=== PATIENT | female | born 1950 | race Caucasian/White ===

== ENCOUNTER 2019-11-09 11:44 | Outpatient (CLI) | payer MEDICARE, MEDICAID, SELFPAY ==
[2019-11-09 12:21] LABS: Basophils % 0.4 %; Eosinophils # 0.5 10^3/uL (0.0-0.8); Hematocrit 34.5 % (37.0-47.0); Hemoglobin 11.2 g/dL (11.5-15.3); Lymphocytes # 3.1 10^3/uL (0.8-4.8); Lymphocytes % 27.6 %; Mean Corpuscular HGB Conc 32.5 g/dL (30.0-36.0); Mean Corpuscular Volume 86.3 fL (81-99); Mean Platelet Volume 9.9 fL (7.4-10.4); Monocytes % 8.6 %; Neutrophils # 6.7 10^3/uL (1.8-7.7); Neutrophils % 59.1 %; Nucleated Red Blood Cells % 0 %; Platelet Count 198 10^3/cmm (130-400); Red Cell Distribution Width 12.8 % (12.1-15.1); White Blood Count 11.4 10^3/uL (4.0-10.0)
[2019-11-09 12:47] LABS: 25 Hydroxy Vitamin D 45 ng/mL (30-100)
[2019-11-09 13:02] LABS: Albumin Level 4.2 g/dL (3.5-5.2); Anion Gap 18.9 (5-19); Blood Urea Nitrogen 25 mg/dL (8-23); Calcium 8.5 mg/dL (8.5-10.5); Carbon Dioxide 23 mmol/L (22-29); Chloride 100 mmol/L (98-107); Glucose 95 mg/dL (74-106); Phosphorus 3.8 mg/dL (2.5-4.5); Potassium 3.9 mmol/L (3.5-5.1); Sodium 138 mmol/L (136-145)
[2019-11-09 13:13] LABS: Calcium 8.4 mg/dL (8.5-10.5); Parathyroid Hormone 45.3 pg/mL (15-65)
[2019-11-09 13:35] LABS: Urine Creatinine 110 mg/dL (28-217)
[2019-11-09 13:43] LABS: UPRO/UCREAT Ratio 0.35 mg/mg CR; Urine Protein Random 39 mg/dL
[2019-11-10 12:12] LABS: Cyclosporine A Trough Level 377 mcg/L
== END 2019-11-09 11:45 | disposition home or self-care (01) ==
LOC: LAB 11:48
PROVIDERS: Family Provider Nurse Practitioner Family; Visit Provider Internal Medicine Nephrology
DX: I12.9 Hypertensive chronic kidney disease with stage 1 through stage 4 chronic kidney disease, or unspecified chronic kidney disease (principal); N18.4 Chronic kidney disease, stage 4 (severe); Z94.0 Kidney transplant status; E87.6 Hypokalemia
CPT/HCPCS: 36415; 80069; 80158; 82306; 82310; 82570; 83735; 83970; 84156; 85025

== ENCOUNTER 2019-11-30 12:02 | Outpatient (CLI) | payer MEDICARE, MEDICAID, SELFPAY ==
[2019-11-30 13:17] LABS: Basophils % 0.4 %; Eosinophils # 0.4 10^3/uL (0.0-0.8); Eosinophils % 4.5 %; Hematocrit 36.6 % (37.0-47.0); Hemoglobin 11.8 g/dL (11.5-15.3); Lymphocytes # 1.4 10^3/uL (0.8-4.8); Lymphocytes % 15.9 %; Mean Corpuscular HGB Conc 32.2 g/dL (30.0-36.0); Mean Corpuscular Hemoglobin 27.8 pg (28.0-34.0); Mean Corpuscular Volume 86.3 fL (81-99); Monocytes # 0.3 10^3/uL (0.2-0.9); Neutrophils # 6.8 10^3/uL (1.8-7.7); Neutrophils % 75.9 %; Nucleated Red Blood Cells % 0 %; Platelet Count 200 10^3/cmm (130-400); Red Blood Count 4.24 10^6/uL (4.1-5.3); Red Cell Distribution Width 13.1 % (12.1-15.1); White Blood Count 8.9 10^3/uL (4.0-10.0)
[2019-11-30 13:19] LABS: Add Urine Microscopic? YES; Bilirubin Urine Neg (NEGATIVE); Blood Urine 2+ (Negative); Glucose Urine UA Norm (Normal); Ketones Urine Negative (Negative); Leukocyte Esterase Urine Negative (Negative); Nitrate Urine Negative (Negative); Protein Urine 3+ (Negative); Urine Appearance Clear (CLEAR); Urine Color Yellow (Yellow); Urobilinogen Urine Norm (Negative); pH Urine 5 (5-7)
[2019-11-30 13:19] LABS: Uric Acid 8.3 mg/dL (2.4-5.7)
[2019-11-30 13:20] LABS: Alanine Aminotransferase 16 U/L (0-33); Albumin Level 4.6 g/dL (3.5-5.2); Alkaline Phosphatase 77 IU/L (35-105); Anion Gap 19.4 (5-19); Aspartate Amino Transferase 25 U/L (0-32); Blood Urea Nitrogen 20 mg/dL (8-23); Carbon Dioxide 24 mmol/L (22-29); Chloride 99 mmol/L (98-107); Globulin 3.3 g/dL (1.3-4.6); Glomerular Filtration Rate 27.8 mL/min (90-130); Glucose 96 mg/dL (65-115); Potassium 4.4 mmol/L (3.5-5.1); Sodium 138 mmol/L (136-145); Total Bilirubin 1.7 mg/dL (0.15-1.2); Total Protein 7.9 g/dL (6.6-8.7)
[2019-11-30 13:29] LABS: Add Urine Culture? No; Bacteria Urine TRACE; RBC Urine 0-4 /hpf (0-2); WBC Urine 0-4 /hpf (0-5)
[2019-11-30 13:34] LABS: Urine Creatinine 141 mg/dL (28-217)
[2019-11-30 13:47] LABS: UPRO/UCREAT Ratio 1.47 mg/mg CR; Urine Protein Random 207 mg/dL
[2019-11-30 13:58] LABS: Calcium 9.2 mg/dL (8.5-10.5); Parathyroid Hormone 67.3 pg/mL (15-65)
[2019-12-01 12:13] LABS: Cyclosporine A Trough Level 260 mcg/L
== END 2019-11-30 12:03 | disposition home or self-care (01) ==
LOC: LAB 12:08
PROVIDERS: Family Provider Nurse Practitioner Family; PCP Nurse Practitioner Family; Visit Provider Internal Medicine Nephrology
DX: Z94.0 Kidney transplant status (principal); Z79.899 Other long term (current) drug therapy; E83.49 Other disorders of magnesium metabolism; I12.9 Hypertensive chronic kidney disease with stage 1 through stage 4 chronic kidney disease, or unspecified chronic kidney disease; N18.4 Chronic kidney disease, stage 4 (severe); E87.5 Hyperkalemia; N25.81 Secondary hyperparathyroidism of renal origin
CPT/HCPCS: 36415; 80053; 80158; 81001; 82310; 82570; 83735; 83970; 84156; 84550; 85025

== ENCOUNTER 2020-03-21 12:17 | Outpatient (CLI) | payer MEDICARE, MEDICAID, SELFPAY ==
[2020-03-21 13:15] LABS: Basophils % 0.5 %; Eosinophils # 0.5 10^3/uL (0.0-0.8); Eosinophils % 6.3 %; Hematocrit 35.2 % (37.0-47.0); Lymphocytes # 1.6 10^3/uL (0.8-4.8); Lymphocytes % 19.1 %; Mean Corpuscular HGB Conc 31.3 g/dL (30.0-36.0); Mean Corpuscular Hemoglobin 28.5 pg (28.0-34.0); Mean Corpuscular Volume 91.2 fL (81-99); Mean Platelet Volume 9.7 fL (7.4-10.4); Monocytes # 0.4 10^3/uL (0.2-0.9); Monocytes % 4.6 %; Neutrophils # 5.9 10^3/uL (1.8-7.7); Neutrophils % 69.3 %; Nucleated Red Blood Cells % 0 %; Platelet Count 175 10^3/cmm (130-400); Red Blood Count 3.86 10^6/uL (4.1-5.3); Red Cell Distribution Width 13.4 % (12.1-15.1); White Blood Count 8.5 10^3/uL (4.0-10.0)
[2020-03-21 13:23] LABS: Alanine Aminotransferase 14 U/L (0-33); Albumin Level 4.1 g/dL (3.5-5.2); Alkaline Phosphatase 61 IU/L (35-105); Aspartate Amino Transferase 19 U/L (0-32); Blood Urea Nitrogen 20 mg/dL (8-23); Calcium 7.9 mg/dL (8.5-10.5); Carbon Dioxide 23 mmol/L (22-29); Chloride 105 mmol/L (98-107); Globulin 2.3 g/dL (1.3-4.6); Glomerular Filtration Rate 22.1 mL/min (90-130); Glucose 85 mg/dL (65-115); Magnesium 2.2 mg/dL (1.7-2.3); Osmolality Calculated 284 mOsm/kg (285-295); Sodium 139 mmol/L (136-145); Total Bilirubin 1.5 mg/dL (0.15-1.2); Total Protein 6.4 g/dL (6.6-8.7); Uric Acid 7.3 mg/dL (2.4-5.7)
[2020-03-21 13:28] LABS: Urine Appearance Clear (CLEAR); Urine Color Yellow (Yellow)
[2020-03-21 13:29] LABS: Add Urine Microscopic? YES; Bilirubin Urine Neg (NEGATIVE); Blood Urine 2+ (Negative); Glucose Urine UA Norm (Normal); Ketones Urine Negative (Negative); Leukocyte Esterase Urine Negative (Negative); Nitrate Urine Negative (Negative); Protein Urine Trace (Negative); Urobilinogen Urine Norm (Negative)
[2020-03-21 13:32] LABS: Add Urine Culture? No; Bacteria Urine 2+; RBC Urine 0-4 /hpf (0-2); Squamous Epithelial Cell Urine 15-25 (0-5)
[2020-03-21 13:45] LABS: Urine Creatinine 142 mg/dL (28-217)
[2020-03-21 13:49] LABS: UPRO/UCREAT Ratio 0.26 mg/mg CR; Urine Protein Random 37 mg/dL
[2020-03-21 14:53] LABS: Calcium 7.9 mg/dL (8.5-10.5); Parathyroid Hormone 64.5 pg/mL (15-65)
[2020-03-22 12:36] LABS: Cyclosporine A Trough Level 337 mcg/L
== END 2020-03-21 12:18 | disposition home or self-care (01) ==
LOC: LAB 12:22
PROVIDERS: PCP Nurse Practitioner Family; Visit Provider Nurse Practitioner Family
DX: Z94.0 Kidney transplant status (principal); Z79.899 Other long term (current) drug therapy; E83.49 Other disorders of magnesium metabolism; N25.81 Secondary hyperparathyroidism of renal origin
CPT/HCPCS: 36415; 80053; 80158; 81001; 82310; 82570; 83735; 83970; 84156; 84550; 85025

== ENCOUNTER 2020-06-22 11:41 | Outpatient (CLI) | payer MEDICARE, MEDICAID, SELFPAY ==
[2020-06-22 12:10] LABS: Add Urine Microscopic? NO
[2020-06-22 12:14] LABS: Basophils % 0.4 %; Eosinophils # 0.4 10^3/uL (0.0-0.8); Hematocrit 33.4 % (37.0-47.0); Hemoglobin 10.8 g/dL (11.5-15.3); Lymphocytes # 3.4 10^3/uL (0.8-4.8); Lymphocytes % 36.9 %; Mean Corpuscular HGB Conc 32.3 g/dL (30.0-36.0); Mean Corpuscular Hemoglobin 29.1 pg (28.0-34.0); Mean Platelet Volume 9.6 fL (7.4-10.4); Monocytes % 10.8 %; Neutrophils # 4.36 10^3/uL (1.8-7.7); Neutrophils % 47.7 %; Nucleated Red Blood Cells % 0 %; Platelet Count 184 10^3/cmm (130-400); Red Blood Count 3.71 10^6/uL (4.1-5.3); Red Cell Distribution Width 13.5 % (12.1-15.1); White Blood Count 9.2 10^3/uL (4.0-10.0)
[2020-06-22 12:39] LABS: Bilirubin Urine Neg (Negative); Blood Urine Neg (Negative); Glucose Urine UA Norm (Normal); Ketones Urine Negative (Negative); Leukocyte Esterase Urine Negative (Negative); Nitrate Urine Negative (Negative); Protein Urine Trace (Negative); Specific Gravity, Urine 1.015 (1.005-1.030); Urine Appearance Clear (CLEAR); Urine Color Yellow (Yellow); Urobilinogen Urine Neg (Negative); pH Urine 5 (5-7)
[2020-06-22 12:40] LABS: Alanine Aminotransferase 14 U/L (0-33); Albumin Level 3.9 g/dL (3.5-5.2); Alkaline Phosphatase 55 IU/L (35-105); Anion Gap 14.7 (5-19); Aspartate Amino Transferase 18 U/L (0-32); Blood Urea Nitrogen 17 mg/dL (8-23); Calcium 7.7 mg/dL (8.5-10.5); Carbon Dioxide 24 mmol/L (22-29); Chloride 105 mmol/L (98-107); Globulin 2.7 g/dL (1.3-4.6); Glucose 91 mg/dL (65-115); Magnesium 1.7 mg/dL (1.7-2.3); Osmolality Calculated 286 mOsm/kg (285-295); Potassium 3.7 mmol/L (3.5-5.1); Sodium 140 mmol/L (136-145); Total Bilirubin 1.4 mg/dL (0.15-1.2); Total Protein 6.6 g/dL (6.6-8.7); Uric Acid 7.8 mg/dL (2.4-5.7)
[2020-06-22 13:03] LABS: Calcium 8.1 mg/dL (8.5-10.5); Parathyroid Hormone 63.7 pg/mL (15-65)
[2020-06-22 13:41] LABS: Urine Creatinine 86 mg/dL (28-217)
[2020-06-22 13:47] LABS: UPRO/UCREAT Ratio 0.53 mg/mg CR; Urine Protein Random 46 mg/dL
[2020-06-23 15:58] LABS: Cyclosporine A Trough Level 389 mcg/L
== END 2020-06-22 11:42 | disposition home or self-care (01) ==
LOC: LAB 11:43
PROVIDERS: PCP Nurse Practitioner Family; Visit Provider Internal Medicine Nephrology
DX: Z94.0 Kidney transplant status (principal)
CPT/HCPCS: 36415; 80053; 80158; 81003; 82310; 82570; 83735; 83970; 84156; 84550; 85025

== ENCOUNTER 2020-09-12 12:03 | Outpatient (CLI) | payer MEDICARE, MEDICAID, SELFPAY ==
[2020-09-12 12:56] LABS: Basophils # 0.1 10^3/uL (0.0-0.1); Basophils % 0.5 %; Eosinophils # 0.4 10^3/uL (0.0-0.8); Eosinophils % 4.2 %; Hematocrit 34.1 % (37.0-47.0); Hemoglobin 10.8 g/dL (11.5-15.3); Lymphocytes # 3.4 10^3/uL (0.8-4.8); Lymphocytes % 34.1 %; Mean Corpuscular HGB Conc 31.7 g/dL (30.0-36.0); Mean Corpuscular Hemoglobin 28.7 pg (28.0-34.0); Mean Corpuscular Volume 90.7 fL (81-99); Mean Platelet Volume 9.9 fL (7.4-10.4); Monocytes # 1.1 10^3/uL (0.2-0.9); Monocytes % 10.4 %; Neutrophils % 50.6 %; Nucleated Red Blood Cells % 0 %; Platelet Count 182 10^3/cmm (130-400); Red Blood Count 3.76 10^6/uL (4.1-5.3); White Blood Count 10.1 10^3/uL (4.0-10.0)
[2020-09-12 13:09] LABS: Add Urine Microscopic? YES; Bilirubin Urine Neg (Negative); Blood Urine Trace (Negative); Glucose Urine UA Norm (Normal); Ketones Urine Negative (Negative); Leukocyte Esterase Urine Negative (Negative); Nitrate Urine Negative (Negative); Protein Urine 1+ (Negative); Specific Gravity, Urine 1.015 (1.005-1.030); Urine Appearance Clear (CLEAR); Urine Color Yellow (Yellow); Urobilinogen Urine Norm (Negative); pH Urine 5 (5-7)
[2020-09-12 13:10] LABS: Add Urine Culture? No; Bacteria Urine 1+ /hpf; Mucus Urine TRACE /hpf; RBC Urine 0-4 /hpf (0-2); WBC Urine 0-4 /hpf (0-5)
[2020-09-12 13:18] LABS: Alanine Aminotransferase 16 U/L (0-33); Albumin Level 4.1 g/dL (3.5-5.2); Alkaline Phosphatase 59 IU/L (35-105); Anion Gap 17.9 (5-19); Aspartate Amino Transferase 16 U/L (0-32); Blood Urea Nitrogen 21 mg/dL (8-23); Calcium 8.1 mg/dL (8.5-10.5); Carbon Dioxide 25 mmol/L (22-29); Chloride 102 mmol/L (98-107); Globulin 2.6 g/dL (1.3-4.6); Glucose 87 mg/dL (65-115); Osmolality Calculated 294 mOsm/kg (285-295); Potassium 3.9 mmol/L (3.5-5.1); Sodium 141 mmol/L (136-145); Total Bilirubin 1.2 mg/dL (0.15-1.2); Total Protein 6.7 g/dL (6.6-8.7)
[2020-09-12 13:31] LABS: Urine Creatinine 94 mg/dL (28-217)
[2020-09-12 13:31] LABS: Calcium 7.9 mg/dL (8.5-10.5); Parathyroid Hormone 66.9 pg/mL (15-65)
[2020-09-12 13:33] LABS: UPRO/UCREAT Ratio 0.66 mg/mg CR; Urine Protein Random 62 mg/dL
[2020-09-13 12:13] LABS: Cyclosporine A Trough Level 427 mcg/L
== END 2020-09-12 12:04 | disposition home or self-care (01) ==
LOC: LAB 12:10
PROVIDERS: PCP Nurse Practitioner Family; Visit Provider Internal Medicine Nephrology
DX: Z94.0 Kidney transplant status (principal); Z79.899 Other long term (current) drug therapy; E83.49 Other disorders of magnesium metabolism; N18.4 Chronic kidney disease, stage 4 (severe); E87.6 Hypokalemia
CPT/HCPCS: 36415; 80053; 80158; 81001; 82310; 82570; 83735; 83970; 84156; 84550; 85025

== ENCOUNTER 2020-11-14 11:30 | Outpatient (CLI) | payer MEDICARE, MEDICAID, SELFPAY ==
[2020-11-14 12:16] LABS: Basophils % 0.4 %; Eosinophils # 0.3 10^3/uL (0.0-0.8); Eosinophils % 2.7 %; Hemoglobin 11.5 g/dL (11.5-15.3); Lymphocytes # 1.7 10^3/uL (0.8-4.8); Lymphocytes % 16.2 %; Mean Corpuscular HGB Conc 31.9 g/dL (30.0-36.0); Mean Corpuscular Hemoglobin 28.8 pg (28.0-34.0); Mean Corpuscular Volume 90.2 fL (81-99); Mean Platelet Volume 9.6 fL (7.4-10.4); Monocytes # 0.6 10^3/uL (0.2-0.9); Monocytes % 5.6 %; Neutrophils # 7.67 10^3/uL (1.8-7.7); Neutrophils % 74.7 %; Nucleated Red Blood Cells % 0 %; Platelet Count 207 10^3/cmm (130-400); Red Blood Count 3.99 10^6/uL (4.1-5.3); Red Cell Distribution Width 12.8 % (12.1-15.1); White Blood Count 10.3 10^3/uL (4.0-10.0)
[2020-11-14 12:54] LABS: Add Urine Microscopic? YES; Bilirubin Urine Neg (Negative); Blood Urine Neg (Negative); Glucose Urine UA Norm (Normal); Ketones Urine Negative (Negative); Leukocyte Esterase Urine Negative (Negative); Nitrate Urine Negative (Negative); Protein Urine 1+ (Negative); Specific Gravity, Urine 1.015 (1.005-1.030); Urine Appearance Clear (CLEAR); Urine Color Yellow (Yellow); Urobilinogen Urine Norm (Negative); pH Urine 5 (5-7)
[2020-11-14 12:56] LABS: Add Urine Culture? No; Bacteria Urine 1+ /hpf; Squamous Epithelial Cell Urine 15-25 /hpf (0-5); WBC Urine 0-4 /hpf (0-5)
[2020-11-14 13:09] LABS: Alanine Aminotransferase 15 U/L (0-33); Albumin Level 4.1 g/dL (3.5-5.2); Alkaline Phosphatase 66 IU/L (35-105); Anion Gap 15.5 (5-19); Aspartate Amino Transferase 19 U/L (0-32); Blood Urea Nitrogen 17 mg/dL (8-23); Calcium 8.3 mg/dL (8.5-10.5); Carbon Dioxide 26 mmol/L (22-29); Chloride 101 mmol/L (98-107); Globulin 2.9 g/dL (1.3-4.6); Glucose 88 mg/dL (65-115); Magnesium 2.1 mg/dL (1.7-2.3); Osmolality Calculated 287 mOsm/kg (285-295); Potassium 4.5 mmol/L (3.5-5.1); Sodium 138 mmol/L (136-145); Total Bilirubin 1.3 mg/dL (0.15-1.2); Uric Acid 7.5 mg/dL (2.4-5.7)
[2020-11-14 13:11] LABS: Urine Creatinine 110 mg/dL (28-217)
[2020-11-14 13:14] LABS: Urine Protein Random 65 mg/dL
[2020-11-14 13:26] LABS: Calcium 8.2 mg/dL (8.5-10.5); Parathyroid Hormone 57.7 pg/mL (15-65)
[2020-11-16 14:04] LABS: Cyclosporine A Trough Level 295 mcg/L
== END 2020-11-14 11:31 | disposition home or self-care (01) ==
PROVIDERS: PCP Nurse Practitioner Family; Visit Provider Internal Medicine Nephrology
DX: Z94.0 Kidney transplant status (principal); Z79.899 Other long term (current) drug therapy; E83.49 Other disorders of magnesium metabolism; I12.9 Hypertensive chronic kidney disease with stage 1 through stage 4 chronic kidney disease, or unspecified chronic kidney disease; N18.4 Chronic kidney disease, stage 4 (severe); E87.6 Hypokalemia; N25.81 Secondary hyperparathyroidism of renal origin
CPT/HCPCS: 36415; 80053; 80158; 81001; 82310; 82570; 83735; 83970; 84156; 84550; 85025

== ENCOUNTER 2021-01-02 11:56 | Outpatient (CLI) | payer MEDICARE, MEDICAID, SELFPAY ==
[2021-01-02 13:25] LABS: Calcium 8.4 mg/dL (8.5-10.5); Parathyroid Hormone 55.8 pg/mL (15-65)
[2021-01-02 13:28] LABS: Creatinine Urine, Random 159 mg/dL (28-217)
[2021-01-02 13:39] LABS: 25 Hydroxy Vitamin D 45 ng/mL (30-100); Alanine Aminotransferase 9 U/L (0-33); Alkaline Phosphatase 57 IU/L (35-105); Anion Gap 17.6 (5-19); Aspartate Amino Transferase 14 U/L (0-32); Blood Urea Nitrogen 28 mg/dL (8-23); Calcium 8.5 mg/dL (8.5-10.5); Carbon Dioxide 23 mmol/L (22-29); Chloride 99 mmol/L (98-107); Globulin 3.4 g/dL (1.3-4.6); Glucose 85 mg/dL (65-115); Osmolality Calculated 287 mOsm/kg (285-295); Potassium 3.6 mmol/L (3.5-5.1); Sodium 136 mmol/L (136-145); Total Bilirubin 1.3 mg/dL (0.15-1.2); Total Protein 7.4 g/dL (6.6-8.7)
[2021-01-02 14:04] LABS: Microalbum Creatinine Ratio Ur 296 mg/dL (0-20); Microalbumin Random Urine 47 ug/dL (0-20)
[2021-01-03 12:54] LABS: Cyclosporine A Trough Level 378 mcg/L
== END 2021-01-02 11:57 | disposition home or self-care (01) ==
PROVIDERS: PCP Nurse Practitioner Family; Visit Provider Internal Medicine Nephrology
DX: Z94.0 Kidney transplant status (principal)
CPT/HCPCS: 80053; 80158; 82044; 82306; 82310; 83735; 83970

== ENCOUNTER 2021-03-15 11:04 | Outpatient (CLI) | payer MEDICARE, MEDICAID, SELFPAY ==
[2021-03-15 11:45] LABS: Basophils # 0.1 10^3/uL (0.0-0.1); Basophils % 0.5 %; Eosinophils # 0.4 10^3/uL (0.0-0.8); Eosinophils % 3.8 %; Hematocrit 35.7 % (37.0-47.0); Lymphocytes # 2.7 10^3/uL (0.8-4.8); Lymphocytes % 29.7 %; Mean Corpuscular HGB Conc 30.8 g/dL (30.0-36.0); Mean Corpuscular Hemoglobin 28.4 pg (28.0-34.0); Mean Platelet Volume 9.3 fL (7.4-10.4); Monocytes # 1.1 10^3/uL (0.2-0.9); Monocytes % 11.4 %; Neutrophils # 5.01 10^3/uL (1.8-7.7); Neutrophils % 54.2 %; Nucleated Red Blood Cells % 0 %; Platelet Count 231 10^3/cmm (130-400); Red Blood Count 3.88 10^6/uL (4.1-5.3); Red Cell Distribution Width 13.7 % (12.1-15.1); White Blood Count 9.2 10^3/uL (4.0-10.0)
[2021-03-15 12:12] LABS: Urine Creatinine 74 mg/dL (28-217)
[2021-03-15 12:15] LABS: UPRO/UCREAT Ratio 0.95 mg/mg CR; Urine Protein Random 70 mg/dL
[2021-03-15 12:32] LABS: Alanine Aminotransferase 8 U/L (0-33); Alkaline Phosphatase 48 IU/L (35-105); Anion Gap 16.1 (5-19); Aspartate Amino Transferase 16 U/L (0-32); Blood Urea Nitrogen 22 mg/dL (8-23); Calcium 7.9 mg/dL (8.5-10.5); Carbon Dioxide 25 mmol/L (22-29); Chloride 102 mmol/L (98-107); Glucose 78 mg/dL (65-115); Magnesium 2.2 mg/dL (1.7-2.3); Osmolality Calculated 290 mOsm/kg (285-295); Potassium 4.1 mmol/L (3.5-5.1); Sodium 139 mmol/L (136-145); Total Bilirubin 0.9 mg/dL (0.15-1.2)
[2021-03-15 12:34] LABS: Calcium 7.8 mg/dL (8.5-10.5)
[2021-03-15 12:42] LABS: Parathyroid Hormone 56.8 pg/mL (15-65)
[2021-03-15 12:48] LABS: 25 Hydroxy Vitamin D 40 ng/mL (30-100)
[2021-03-16 15:18] LABS: Cyclosporine A Trough Level 237 mcg/L
== END 2021-03-15 11:05 | disposition home or self-care (01) ==
PROVIDERS: PCP Nurse Practitioner Family; Visit Provider Internal Medicine Nephrology
DX: Z94.0 Kidney transplant status (principal)
CPT/HCPCS: 36415; 80053; 80158; 80197; 82306; 82310; 82570; 83735; 83970; 84156; 85025

== ENCOUNTER 2021-06-14 11:50 | Outpatient (CLI) | payer MEDICARE, MEDICAID, SELFPAY ==
[2021-06-14 12:35] LABS: Basophils # 0.1 10^3/uL (0.0-0.1); Basophils % 0.8 %; Eosinophils # 0.6 10^3/uL (0.0-0.8); Eosinophils % 6.7 %; Hematocrit 35.8 % (37.0-47.0); Hemoglobin 11.4 g/dL (11.5-15.3); Lymphocytes % 21.2 %; Mean Corpuscular HGB Conc 31.8 g/dL (30.0-36.0); Mean Corpuscular Hemoglobin 28.8 pg (28.0-34.0); Mean Corpuscular Volume 90.4 fl (81-99); Mean Platelet Volume 9.7 fL (7.4-10.4); Monocytes # 0.6 10^3/uL (0.2-0.9); Monocytes % 5.7 %; Neutrophils # 6.24 10^3/uL (1.8-7.7); Neutrophils % 65.3 %; Nucleated Red Blood Cells % 0 %; Platelet Count 202 10^3/cmm (130-400); Red Blood Count 3.96 10^6/uL (4.1-5.3); White Blood Count 9.6 10^3/uL (4.0-10.0)
[2021-06-14 13:00] LABS: Alanine Aminotransferase 8 U/L (0-33); Albumin Level 4.1 g/dL (3.5-5.2); Alkaline Phosphatase 51 IU/L (35-105); Anion Gap 16.5 (5-19); Aspartate Amino Transferase 14 U/L (0-32); Blood Urea Nitrogen 18 mg/dL (8-23); Calcium 8.2 mg/dL (8.5-10.5); Carbon Dioxide 22 mmol/L (22-29); Chloride 105 mmol/L (98-107); Globulin 2.3 g/dL (1.3-4.6); Glucose 77 mg/dL (65-115); Osmolality Calculated 289 mOsm/kg (285-295); Potassium 4.5 mmol/L (3.5-5.1); Sodium 139 mmol/L (136-145); Total Bilirubin 0.9 mg/dL (0.15-1.2); Total Protein 6.4 g/dL (6.6-8.7)
[2021-06-14 13:13] LABS: Calcium 8.2 mg/dL (8.5-10.5)
[2021-06-14 13:16] LABS: 25 Hydroxy Vitamin D 36 ng/mL (30-100)
[2021-06-14 13:20] LABS: Parathyroid Hormone 57.7 pg/mL (15-65)
[2021-06-14 13:28] LABS: Urine Creatinine 108 mg/dL (28-217)
[2021-06-14 13:38] LABS: UPRO/UCREAT Ratio 0.88 mg/mg CR; Urine Protein Random 95 mg/dL
[2021-06-15 14:37] LABS: Cyclosporine A Trough Level 519 mcg/L
== END 2021-06-14 11:51 | disposition home or self-care (01) ==
PROVIDERS: PCP Nurse Practitioner Family; Visit Provider Internal Medicine Nephrology
DX: Z94.0 Kidney transplant status (principal)
CPT/HCPCS: 36415; 80053; 80158; 80197; 82306; 82310; 82570; 83735; 83970; 84156; 85025

== ENCOUNTER 2021-06-19 11:56 | Outpatient (CLI) | payer MEDICARE, MEDICAID, SELFPAY ==
[2021-06-20 15:22] LABS: Cyclosporine A Trough Level 481 mcg/L; Cyclosporine Comment Y
== END 2021-06-19 11:57 | disposition home or self-care (01) ==
PROVIDERS: PCP Nurse Practitioner Family; Visit Provider Registered Nurse
DX: Z94.0 Kidney transplant status (principal)
CPT/HCPCS: 80158

== ENCOUNTER 2021-09-14 12:15 | Outpatient (CLI) | payer MEDICARE, MEDICAID, SELFPAY ==
[2021-09-14 12:58] LABS: Basophils # 0.1 10^3/uL (0.0-0.1); Basophils % 0.8 %; Eosinophils # 0.6 10^3/uL (0.0-0.8); Eosinophils % 7.3 %; Hematocrit 35.1 % (37.0-47.0); Hemoglobin 11.2 g/dL (11.5-15.3); Lymphocytes # 1.5 10^3/uL (0.8-4.8); Mean Corpuscular HGB Conc 31.9 g/dL (30.0-36.0); Mean Corpuscular Hemoglobin 29.2 pg (28.0-34.0); Mean Corpuscular Volume 91.6 fl (81-99); Mean Platelet Volume 9.4 fL (7.4-10.4); Monocytes # 0.4 10^3/uL (0.2-0.9); Monocytes % 5.1 %; Neutrophils # 6.02 10^3/uL (1.8-7.7); Neutrophils % 69.5 %; Nucleated Red Blood Cells % 0 %; Platelet Count 211 10^3/cmm (130-400); Red Blood Count 3.83 10^6/uL (4.1-5.3); Red Cell Distribution Width 13.7 % (12.1-15.1); White Blood Count 8.7 10^3/uL (4.0-10.0)
[2021-09-14 13:34] LABS: Calcium 7.4 mg/dL (8.5-10.5)
[2021-09-14 13:36] LABS: 25 Hydroxy Vitamin D 57 ng/mL (30-100); Alanine Aminotransferase 10 U/L (0-33); Alkaline Phosphatase 55 IU/L (35-105); Anion Gap 16.4 (5-19); Aspartate Amino Transferase 17 U/L (0-32); Blood Urea Nitrogen 14 mg/dL (8-23); Calcium 7.7 mg/dL (8.5-10.5); Carbon Dioxide 23 mmol/L (22-29); Chloride 104 mmol/L (98-107); Globulin 2.7 g/dL (1.3-4.6); Glucose 81 mg/dL (65-115); Magnesium 2.1 mg/dL (1.7-2.3); Osmolality Calculated 288 mOsm/kg (285-295); Potassium 4.4 mmol/L (3.5-5.1); Sodium 139 mmol/L (136-145); Total Protein 6.7 g/dL (6.6-8.7)
[2021-09-14 13:40] LABS: Urine Creatinine 80 mg/dL (28-217)
[2021-09-14 13:42] LABS: Parathyroid Hormone 59.7 pg/mL (15-65)
[2021-09-14 13:45] LABS: UPRO/UCREAT Ratio 2.09 mg/mg CR; Urine Protein Random 167 mg/dL
== END 2021-09-14 12:16 | disposition home or self-care (01) ==
PROVIDERS: PCP Nurse Practitioner Family; Visit Provider Internal Medicine Nephrology
DX: Z94.0 Kidney transplant status (principal)
CPT/HCPCS: 80053; 80158; 80197; 82306; 82310; 82570; 83735; 83970; 84156; 85025

== ENCOUNTER 2021-12-11 11:27 | Outpatient (CLI) | payer MEDICARE, MEDICAID, SELFPAY ==
[2021-12-11 12:50] LABS: Basophils # 0.1 10^3/uL (0.0-0.1); Basophils % 0.6 %; Eosinophils # 0.6 10^3/uL (0.0-0.8); Eosinophils % 6.6 %; Hematocrit 36.1 % (37.0-47.0); Hemoglobin 11.6 g/dL (11.5-15.3); Lymphocytes # 1.4 10^3/uL (0.8-4.8); Lymphocytes % 15.2 %; Mean Corpuscular HGB Conc 32.1 g/dL (30.0-36.0); Mean Corpuscular Hemoglobin 28.5 pg (28.0-34.0); Mean Corpuscular Volume 88.7 fl (81-99); Mean Platelet Volume 9.4 fL (7.4-10.4); Monocytes # 0.4 10^3/uL (0.2-0.9); Monocytes % 4.4 %; Neutrophils # 6.75 10^3/uL (1.8-7.7); Neutrophils % 72.9 %; Nucleated Red Blood Cells % 0 %; Platelet Count 243 10^3/cmm (130-400); Red Blood Count 4.07 10^6/uL (4.1-5.3); Red Cell Distribution Width 13.2 % (12.1-15.1); White Blood Count 9.3 10^3/uL (4.0-10.0)
[2021-12-11 12:57] LABS: Add Urine Culture? No; Add Urine Microscopic? YES; Bacteria Urine TRACE /hpf; Bilirubin Urine Neg (Negative); Blood Urine 2+ (Negative); Glucose Urine UA Norm (Normal); Ketones Urine Negative (Negative); Leukocyte Esterase Urine Negative (Negative); Nitrate Urine Negative (Negative); Protein Urine 3+ (Negative); RBC Urine RARE /hpf (0-2); Specific Gravity, Urine 1.015 (1.005-1.030); Urine Appearance Hazy (CLEAR); Urine Color Yellow (Yellow); Urobilinogen Urine Neg (Negative); pH Urine 5 (5-7)
[2021-12-11 13:04] LABS: Creatinine Urine, Random 100 mg/dL (28-217)
[2021-12-11 13:11] LABS: Alanine Aminotransferase 9 U/L (0-33); Albumin Level 3.9 g/dL (3.5-5.2); Alkaline Phosphatase 65 IU/L (35-105); Anion Gap 15.6 (5-19); Aspartate Amino Transferase 19 U/L (0-32); Blood Urea Nitrogen 22 mg/dL (8-23); Carbon Dioxide 23 mmol/L (22-29); Chloride 104 mmol/L (98-107); Chol HDL Ratio 3.72 mg/dL (0.0-4.40); Cholesterol 257 mg/dL (0-200); Globulin 3.2 g/dL (1.3-4.6); Glucose 90 mg/dL (65-115); HDL Cholesterol 69 mg/dL (60-100); LDL Cholesterol Calculated 154 mg/dL (50-129); LDL HDL Ratio 2.23 RATIO (0.00-3.22); Magnesium 2.2 mg/dL (1.7-2.3); Osmolality Calculated 289 mOsm/kg (285-295); Potassium 4.6 mmol/L (3.5-5.1); Sodium 138 mmol/L (136-145); Total Protein 7.1 g/dL (6.6-8.7); Triglycerides 171 mg/dL (0-150)
[2021-12-11 13:16] LABS: Calcium 8.2 mg/dL (8.5-10.5)
[2021-12-11 13:18] LABS: Parathyroid Hormone 57.3 pg/mL (15-65)
[2021-12-11 13:21] LABS: Microalbum Creatinine Ratio Ur 1850 mg/dL (0-20); Microalbumin Random Urine 185 ug/dL (0-20)
[2021-12-11 13:27] LABS: 25 Hydroxy Vitamin D 38 ng/mL (30-100)
== END 2021-12-11 11:28 | disposition home or self-care (01) ==
LOC: LAB 11:51
PROVIDERS: PCP Nurse Practitioner Family; Visit Provider Registered Nurse
DX: Z94.0 Kidney transplant status (principal); N18.32 Chronic kidney disease, stage 3b
CPT/HCPCS: 36415; 80053; 80061; 80158; 81001; 82044; 82306; 82310; 83735; 83970; 85025

== ENCOUNTER 2021-12-19 12:02 | Outpatient (CLI) | payer MEDICARE, MEDICAID, SELFPAY ==
[2021-12-19 13:23] LABS: Bilirubin Urine Neg (Negative); Blood Urine 2+ (Negative); Glucose Urine UA Norm (Normal); Ketones Urine Negative (Negative); Leukocyte Esterase Urine Negative (Negative); Nitrate Urine Negative (Negative); Protein Urine 3+ (Negative); Specific Gravity, Urine 1.015 (1.005-1.030); Urine Appearance Clear (CLEAR); Urine Color Yellow (Yellow); Urobilinogen Urine Norm (Negative); pH Urine 5 (5-7)
[2021-12-19 13:29] LABS: Add Urine Culture? No; Bacteria Urine 1+ /hpf; Mucus Urine TRACE /hpf; Squamous Epithelial Cell Urine 25-40 /hpf (0-5)
== END 2021-12-19 12:03 | disposition home or self-care (01) ==
LOC: LAB 12:17
PROVIDERS: PCP Nurse Practitioner Family; Visit Provider Registered Nurse
DX: Z94.0 Kidney transplant status (principal)
CPT/HCPCS: 81001

== ENCOUNTER 2022-03-13 11:34 | Outpatient (CLI) | payer MEDICARE, MEDICAID, SELFPAY ==
[2022-03-13 12:45] LABS: Basophils # 0.1 10^3/uL (0.0-0.1); Basophils % 0.6 %; Eosinophils # 0.6 10^3/uL (0.0-0.8); Eosinophils % 6.1 %; Hematocrit 33.6 % (37.0-47.0); Hemoglobin 10.7 g/dL (11.5-15.3); Lymphocytes # 1.5 10^3/uL (0.8-4.8); Lymphocytes % 15.2 %; Mean Corpuscular HGB Conc 31.8 g/dL (30.0-36.0); Mean Corpuscular Hemoglobin 28.3 pg (28.0-34.0); Mean Corpuscular Volume 88.9 fl (81-99); Mean Platelet Volume 9.7 fL (7.4-10.4); Monocytes # 0.4 10^3/uL (0.2-0.9); Monocytes % 4.3 %; Neutrophils # 7.36 10^3/uL (1.8-7.7); Neutrophils % 73.5 %; Nucleated Red Blood Cells % 0 %; Platelet Count 212 10^3/cmm (130-400); Red Blood Count 3.78 10^6/uL (4.1-5.3); Red Cell Distribution Width 14.3 % (12.1-15.1)
[2022-03-13 12:52] LABS: Creatinine Urine, Random 100 mg/dL (28-217)
[2022-03-13 13:05] LABS: Calcium 7.6 mg/dL (8.5-10.5)
[2022-03-13 13:13] LABS: Parathyroid Hormone 49.2 pg/mL (15-65)
[2022-03-13 13:16] LABS: 25 Hydroxy Vitamin D 52 ng/mL (30-100); Alanine Aminotransferase 10 U/L (0-33); Albumin Level 4.1 g/dL (3.5-5.2); Alkaline Phosphatase 48 IU/L (35-105); Anion Gap 16.4 (5-19); Aspartate Amino Transferase 15 U/L (0-32); Blood Urea Nitrogen 20 mg/dL (8-23); Calcium 7.6 mg/dL (8.5-10.5); Carbon Dioxide 21 mmol/L (22-29); Chloride 105 mmol/L (98-107); Globulin 2.5 g/dL (1.3-4.6); Glucose 82 mg/dL (65-115); Magnesium 2.1 mg/dL (1.7-2.3); Osmolality Calculated 288 mOsm/kg (285-295); Potassium 4.4 mmol/L (3.5-5.1); Sodium 138 mmol/L (136-145); Thyroid Stimulating Hormone 1.91 uIU/mL (0.27-4.20); Total Protein 6.6 g/dL (6.6-8.7)
[2022-03-14 13:19] LABS: Cyclosporine A Peak 2 Hr Bld 343 mcg/L
== END 2022-03-13 11:35 | disposition home or self-care (01) ==
LOC: LAB 11:37
PROVIDERS: PCP Nurse Practitioner Family; Visit Provider Internal Medicine Nephrology
DX: R53.83 Other fatigue (principal)
CPT/HCPCS: 80053; 80158; 80197; 82306; 82310; 82575; 83735; 83970; 84443; 85025

== ENCOUNTER 2022-05-08 11:43 | Outpatient (CLI) | payer MEDICARE, MEDICAID, SELFPAY ==
--- NOTE | 2022-05-08 11:54 | US_ITS ---
WS: [id number] RENAL ULTRASOUND HISTORY: KIDNEY REPLACED BY TRANSPLANT/RETENTION OF URINE COMPARISON: 08/17/2007 TECHNIQUE: 2-D and color Doppler imaging of the kidney submitted. Right kidney: 3.5 cm x 1.2 cm x 2.6 cm. Severe atrophy and increased echogenicity. Acquired cyst measures 11 x 10 x 10 mm. Left kidney: [place] kidney is not visualized. Transplant kidney is identified in the LEFT pelvis. Transplant kidney measures 11.0 cm in length. The re is not quite a cyst measuring 2.8 x 3.4 x 1.9 cm and mid kidney. No obstruction is apparent. Very slight loss of the normal cortical medullary differentiation. Aorta: Mild atherosclerosis. Urinary Bladder: Bladder is mildly distended. There is a small amount of free fluid in the LEFT lower quadrant adjacent to the kidney. US/US renal BI* [id number] IMPRESSION: 1. Transplanted kidney in the LEFT lower quadrant. No obstruction. 2. There is a very tiny amount of free fluid adjacent to the transplanted kidn ey in the LEFT lower quadrant 3. Normal size of the transplanted kidney.
== END 2022-05-08 11:44 | disposition home or self-care (01) ==
LOC: RAD 11:45
PROVIDERS: PCP Nurse Practitioner Family; Visit Provider Registered Nurse
DX: Z94.0 Kidney transplant status (principal); R33.9 Retention of urine, unspecified
CPT/HCPCS: 76770

== ENCOUNTER 2022-06-14 11:58 | Outpatient (CLI) | payer MEDICARE, MEDICAID, SELFPAY ==
[2022-06-14 12:40] LABS: Hematocrit 32.4 % (37.0-47.0); Hemoglobin 10.7 g/dL (11.5-15.3); Mean Corpuscular Hemoglobin 29.5 pg (28.0-34.0); Mean Corpuscular Volume 89.3 fl (81-99); Mean Platelet Volume 9.5 fL (7.4-10.4); Platelet Count 221 10^3/cmm (130-400); Red Blood Count 3.63 10^6/uL (4.1-5.3); Red Cell Distribution Width 14.7 % (12.1-15.1); White Blood Count 9.2 10^3/uL (4.0-10.0)
[2022-06-14 12:47] LABS: Add Urine Microscopic? YES; Bilirubin Urine Neg (Negative); Blood Urine Neg (Negative); Glucose Urine UA Norm (Normal); Ketones Urine Negative (Negative); Leukocyte Esterase Urine Negative (Negative); Nitrate Urine Negative (Negative); Protein Urine 3+ (Negative); Urine Appearance Clear (CLEAR); Urine Color Yellow (Yellow); Urobilinogen Urine Norm (Negative); pH Urine 5 (5-7)
[2022-06-14 12:58] LABS: Alanine Aminotransferase 8 U/L (0-33); Albumin Level 4.2 g/dL (3.5-5.2); Alkaline Phosphatase 51 U/L (35-105); Anion Gap 16.9 (5-19); Aspartate Amino Transferase 16 U/L (0-32); Blood Urea Nitrogen 24 mg/dL (8-23); Calcium 7.9 mg/dL (8.5-10.5); Carbon Dioxide 21 mmol/L (22-29); Chloride 109 mmol/L (98-107); Chol HDL Ratio 3.24 mg/dL (0.0-4.40); Cholesterol 214 mg/dL (0-200); Globulin 2.5 g/dL (1.3-4.6); Glucose 84 mg/dL (65-115); HDL Cholesterol 66 mg/dL (60-100); LDL Cholesterol Calculated 125 mg/dL (50-129); LDL HDL Ratio 1.89 RATIO (0.00-3.22); Magnesium 1.9 mg/dL (1.7-2.3); Osmolality Calculated 299 mOsm/kg (285-295); Potassium 3.9 mmol/L (3.5-5.1); Sodium 143 mmol/L (136-145); Total Bilirubin 0.9 mg/dL (0.15-1.2); Total Protein 6.7 g/dL (6.6-8.7); Triglycerides 113 mg/dL (0-150)
[2022-06-14 13:01] LABS: Bacteria Urine 1+ /hpf; Creatinine Urine, Random 111 mg/dL (28-217); RBC Urine 0-4 /hpf (0-2); Renal Epithelial Cells Urine 0 /hpf; Transitional Epi Cells Urine 0-4 /hpf; WBC Urine 0-4 /hpf (0-5)
[2022-06-14 13:02] LABS: Add Urine Culture? Yes
[2022-06-14 13:14] LABS: Microalbum Creatinine Ratio Ur 1153 mg/dL (0-20); Microalbumin Random Urine 128 ug/dL (0-20)
[2022-06-14 13:18] LABS: Absolute Segmented Neutrophil 4.8 10/cmm (1.6-7.1); Band Neutrophils Absolute 0.1 10^3/cmm (0.0-1.2); Lymphocytes 38 %; Monocytes Absolute 0.4 10^3/cmm (0.1-0.6); Segmented Neutrophils 52 %; Total Cells Counted 100 (0-100)
[2022-06-14 13:19] LABS: Absolute Eosinophils 0.1 10^3/cmm (0.0-0.7); Absolute Neutrophil 4.9 10^3/cmm (1.4-6.5); Eosinophils 2 %; Lymphocytes Absolute 3.6 10^3/cmm (1.2-3.4); Platelet Estimate Normal (Normal)
[2022-06-14 13:26] LABS: Calcium 7.8 mg/dL (8.5-10.5)
[2022-06-14 13:33] LABS: Parathyroid Hormone 49.1 pg/mL (15-65)
[2022-06-18 12:24] LABS: Cyclosporine A Peak 2 Hr Bld 220 mcg/L
[2022-06-19 12:14] LABS: Vit D 1,25 (Oh)2, Total 17 pg/mL (18-72); Vit D2 1,25 (Oh)2 <8 pg/mL; Vit D3 1,25 (Oh)2 17 pg/mL
== END 2022-06-14 11:59 | disposition home or self-care (01) ==
LOC: RAD 12:02
PROVIDERS: PCP Nurse Practitioner Family; Visit Provider Internal Medicine Nephrology
DX: Z94.0 Kidney transplant status (principal); E55.9 Vitamin D deficiency, unspecified
CPT/HCPCS: 80053; 80061; 80158; 81001; 82044; 82310; 82652; 83735; 83970; 85007; 85027

== ENCOUNTER 2022-07-23 12:37 | Outpatient (CLI) | payer MEDICARE, MEDICAID, SELFPAY ==
[2022-07-23 13:29] LABS: Anion Gap 18.1 (5-19); Blood Urea Nitrogen 30 mg/dL (8-23); Calcium 7.2 mg/dL (8.5-10.5); Carbon Dioxide 25 mmol/L (22-29); Chloride 100 mmol/L (98-107); Glucose 90 mg/dL (65-115); Osmolality Calculated 294 mOsm/kg (285-295); Potassium 4.1 mmol/L (3.5-5.1); Sodium 139 mmol/L (136-145)
== END 2022-07-23 12:38 | disposition home or self-care (01) ==
LOC: LAB 12:39
PROVIDERS: PCP Nurse Practitioner Family; Visit Provider Internal Medicine Nephrology
DX: Z94.0 Kidney transplant status (principal)
CPT/HCPCS: 36415; 80048

== ENCOUNTER 2022-08-15 11:54 | Outpatient (CLI) | payer MEDICARE, MEDICAID, SELFPAY ==
[2022-08-15 13:17] LABS: Anion Gap 15.8 (5-19); Blood Urea Nitrogen 23 mg/dL (8-23); Calcium 7.8 mg/dL (8.5-10.5); Carbon Dioxide 21 mmol/L (22-29); Chloride 105 mmol/L (98-107); Glucose 79 mg/dL (65-115); Osmolality Calculated 289 mOsm/kg (285-295); Phosphorus 4.1 mg/dL (2.5-4.5); Potassium 3.8 mmol/L (3.5-5.1); Sodium 138 mmol/L (136-145)
== END 2022-08-15 11:55 | disposition home or self-care (01) ==
LOC: LAB 12:12
PROVIDERS: PCP Nurse Practitioner Family; Visit Provider Registered Nurse
DX: Z94.0 Kidney transplant status (principal); N18.32 Chronic kidney disease, stage 3b
CPT/HCPCS: 36415; 80048; 84100

== ENCOUNTER 2022-08-26 11:29 | Observation (INO) | payer MEDICARE, MEDICAID, SELFPAY ==
[2022-08-26 11:50] VITALS: BP 149/80; PULSE 81; RESP 18; TEMP 36.4; O2SAT 90; BMI 14.4
--- NOTE | 2022-08-26 12:08 | ED_ITS ---
HPI - SOB/Dyspnea General: Chief Complaint: Shortness of Breath/Dyspnea Stated Complaint: SOB Time Seen by Provider: 08/26/22 11:57 History of Present Illness: HPI Narrative: Ms. Anguiano is a 72-year-old lady with history of hypertension, emphysema likely secondary to secondhand smoke exposure, history of renal transplant presenting to the emergency department due to cough and questionable blood in sputum. Onset of symptoms was approximately 2 months ago and has persisted since then. Notes nasal congestion associated with generalized malaise and cough which has been productive. At times scant amount of blood streaking in sputum. No associated chest pain. Mild associated shortness of breath. Overall course of symptoms has persisted. Notes globus sensation. No other specific changes in health, exacerbating, or alleviating factors identified. Previously prescribed Lasix, bronchodilator, and azithromycin without significant improvement. Onset (ago): week(s) Timing: constant Severity: moderate Exacerbating factors: exertion and coughing Relieving factors: nothing Known history of: COPD and other Associated symptoms: Reports cough and hemoptysis (trace, occassional) Treatment prior to arrival: bronchodilator and other Review of Systems General: Reports: 10 or more systems reviewed and unremarkable except in HPI and below Resp: Reports: hemoptysis (trace, occassional) [facility] ED PFSH: Medical History (Updated 08/29/22 @ 00:00 by ) Emphysema/COPD Heart failure HTN (hypertension) Pleural effusion, bilateral Pulmonary edema Surgical History (Updated 08/29/22 @ 00:00 by ) H/O thyroidectomy History of kidney transplant Family History Other CAD (coronary artery disease) Social History Second hand smoke exposure: Yes Physical Exam Const: COMMON NORMALS: alert GENERAL APPEARANCE: cooperative and well developed NUTRITIONAL APPEARANCE: underweight HENMT: COMMON NORMALS: normocephalic and atraumatic HEAD & SCALP: normocephalic and atraumatic Eye: COMMON NORMALS: conjunctivae normal CONJUNCTIVA: Yes conjunctivae normal SCLERA: sclerae normal Neck/C-Spine: COMMON NORMALS: supple GENERAL: Yes trachea midline Resp: EFFORT & INSPECTION: Yes able to speak in complete sentences AUSCULTATION: diminished lung sounds Cardio: COMMON NORMALS: regular rate and regular rhythm RATE: regular rate RHYTHM: regular rhythm GI: COMMON NORMALS: Soft to palpation PALPATION: Yes Soft to palpation and No Tenderness to palpation present (GI) Extremity: GENERAL: Yes normal exam except as noted and No edema Neuro: COMMON NORMALS: moves all extremities SENSORIUM/ORIENTATION: Yes alert and No Orientation impaired Psych: COMMON NORMALS: mental status grossly normal and Normal thought process present THOUGHT PROCESS: Normal thought process present Course Vital Signs: Vital signs: Vital Signs Temperature 98.4 F 08/28/22 14:38 Pulse Rate 81 08/28/22 14:38 Respiratory Rate 18 08/28/22 14:38 Blood Pressure 149/71 08/28/22 14:38 Pulse Oximetry 90 08/28/22 14:38 Oxygen Delivery Me thod 08/28/22 11:37 Oxygen Flow Rate 2 08/28/22 14:26 MDM - SOB/Dyspnea Medical Decision Making 72-year-old lady presenting with worsening respiratory symptoms despite outpatient treatment. Exam as above. Twelve-lead EKG notable for sinus rhythm with left bundle branch block. Labs with minimal leukocytosis, normocytic anemia again noted. Metabolic panel with some evidence of intravascular volume depletion. Creatinine is elevated. T bili elevated. BNP significant elevated. 2-hour delta troponin is negative. Chest x-ray with evidence of pleural effusions and volume overload, no lobar consolidation or pneumothorax. CT chest with similar findings. During ED course patient treated for DVT symptoms as well as volume overload. Most likely cause of patient's symptoms is multifactorial including exacerbation of underlying lung disease and acute on chronic heart failure with underlying renal transplant and failed outpatient diuresis. The results of ED evaluation were discussed with the patient including plan for admission due to requirement for level of care not available if discharged to prevent significant worsening/deterioration. Patient agreeable with plan. Discussed with hospitalist service who was agreeable to admit patient. Medical Records I reviewed the patient's medical records. Lab Data I reviewed the patient's lab results. 08/28/22 02:05 08/28/22 02:05 Labs/Radiology: Radiology Impressions Chest CT 08/26/22 13:24 IMPRESSION: 1. Small bilateral pleural effusions RIGHT greater than LEFT with compressive atelectasis the lung bases. 2. Interstitial edema in the lung bases likely CHF. Upper lobes are better aerated. 3. No mediastinal or hilar lymphadenopathy. 4. Tiny pericardial effusion. 5. Advanced thoracolumbar scoliosis with thoracic kyphosis. 6. Marked cardiomegaly. Pulmonary Perfusion Imaging 08/27/22 17:27 IMPRESSION: 1. Low probability for pulmonary embolus. Exam interpreted using the PIOPED II criteria 2008: 1. Normal 2. High probability (> 80%) 3. Intermediate probability (20-79%) 4. Low probability (10-19%) 5. Very low probability (<10%) JNM 2006 6. Indeterminate Chest X-Ray 08/28/22 09:21 IMPRESSION: 1. Marked cardiac enlargement with bilateral pleural effusions suggesting congestive heart failure. Very little change since the previous study. 2. Consolidating infiltrate in the lingula which may represent superimposed pneu monia. Renal Ultrasound 08/28/22 19:39 IMPRESSION: 1. LEFT lower quadrant renal transplant. 2. Atrophic [place] kidneys. 3. Simple cyst RIGHT kidney measuring 1.2 x 1.0 cm Laboratory Results WBC 10.5 10^3/uL (4.0-10.0) H 08/26/22 12: RBC 3.34 10^6/uL (4.1-5.3) L 08/26/22 12:29 Hgb 9.9 g/dL (11.5-15.3) L 08/26/22 12:29 Hct 30.6 % (37.0-47.0) L 08/26/22 12: MCV 91.6 fl (81-99) 08/26/22 12: MCH 29.6 pg (28.0-34.0) 08/26/22 12:29 MCHC 32.4 g/dL (30.0-36.0) 08/26/22 12:29 RDW 13.4 % (12.1-15.1) 08/26/22 12:29 Plt Count 172 10^3/cmm (130-400) 08/26/22 12: MPV 9.7 fL (7.4-10.4) 08/26/22 12: Neut % (Auto) 80.0 % 08/26/22 12: Lymph % (Auto) 9.1 % 08/26/22 12: Sullivan % (Auto) 6.3 % 08/26/22 12:29 Eos % (Auto) 3.8 % 08/26/22 12: Baso % (Auto) 0.5 % 08/26/22 12: Neut # (Auto) 8.39 10^3/uL (1.8-7.7) H 08/26/22 12:29 Lymph # (Auto) 1.0 10^3/uL (0.8-4.8) 08/26/22 12: Sullivan # (Auto) 0.7 10^3/uL (0.2-0.9) 08/26/22 12:29 Eos # (Auto) 0.4 10^3/uL (0.0-0.8) 08/26/22 12: Baso # (Auto) 0.1 10^3/uL (0.0-0.1) 08/26/22 12: Nucleated RBC % (auto) 0 % 08/26/22 12: Nucleated RBCs # 0.0 /100WBC 08/26/22 12: D-Dimer 3.94 ug/mIFEU (0-0.59) H 08/26/22 12:29 Sodium 133 mmol/L (136-145) L 08/26/22 12:29 Potassium 4.0 mmol/L (3.5-5.1) 08/26/22 12:29 Chloride 102 mmol/L (98-107) 08/26/22 12:29 Carbon Dioxide 20 mmol/L (22-29) L 08/26/22 12:29 Anion Gap 15.0 (5-19) 08/26/22 12:29 BUN 24 mg/dL (8-23) H 08/26/22 12:29 Creatinine 1.9 mg/dL (0.5-0.9) H 08/26/22 12:29 GFR Calculation Not Reportable 08/26/22 12:29 Glucose 103 mg/dL (65-115) 08/26/22 12:29 Calculated Osmolality 280 mOsm/kg (285-295) L 08/26/22 12:29 Lactic Acid 1.2 mmol/L (0.5-2.2) 08/26/22 12:29 Calcium 8.0 mg/dL (8.5-10.5) L 08/26/22 12:29 Total Bilirubin 1.7 mg/dL (0.15-1.2) H 08/26/22 12:29 AST 15 U/L (0-32) 08/26/22 12:29 ALT 10 U/L (0-33) 08/26/22 12:29 Alkaline Phosphatase 54 U/L (35-105) 08/26/22 12:29 Troponin T Baseline 44 ng/L (0-10) H 08/26/22 12:29 Troponin T 120 Minute 42.25 ng/L (0-10) H 08/26/22 14:28 Delta Troponin T -1.75 ABS# (0-10) L 08/26/22 14:28 NT-Pro-B Natriuret Pep > 66309 pg/mL (0-125) H 08/26/22 12:29 Total Protein 6.6 g/dL (6.6-8.7) 08/26/22 12:29 Albumin 3.7 g/dL (3.5-5.2) 08/26/22 12:29 Globulin 2.9 g/dL (1.3-4.6) 08/26/22 12:29 TSH 2.13 uIU/mL (0.27-4.20) 08/26/22 12:29 Coronavirus 229E (PCR) Not detected (NOT DETECT) 08/26/22 12:29 SARS-CoV-2 (PCR) Not detected (NOT DETECT) 08/26/22 12:29 Discharge Plan Discharge Patient Disposition: Admitted As Inpatient Admit Provider: Jovan Cortez Clinical Impression: Heart failure, History of kidney transplant, Pleural effusion, bilateral, Pulmonary edema Condition: Stable Coding Level of Care Code ED Wood Grinder for Chg Fwd Exam Comprehensive
--- NOTE | 2022-08-26 12:15 | XR_ITS ---
WS: [id number] Exam: XR chest 2V* [id number] Date/Time of Exam: 08/26/2022 12:15 PM Reason For Exam: sob, cough No priors. Marked cardiac enlargement with pulmonary edema and pulmonary vascular congestion suggesting acute CH F. Right-sided pleural effusion noted. The lungs are fully inflated. Probable small left pleural effu al. Regional bony structures are intact. The mediastinum is normal in contour. XR/XR chest 2V* [id number] IMPRESSION: 1. Marked cardiac enlargement with signs of acute CHF and pleural effusions.
[2022-08-26 12:24] VITALS: BP 117/74; O2SAT 95
--- NOTE | 2022-08-26 12:26 | ECG_ITS ---
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 Measurements Intervals [place] Rate: 80 P: 62 ID: [id number] QRS: 45 QRSD: 131 T: 184 QT: 407 QTc: 472 Interpretive Statements SINUS RHYTHM LEFT BUNDLE BRANCH BLOCK [120+ ms QRS DURATION, 80+ ms Q/S IN V1/V2, 85+ ms R IN I/aVL/V5/V6] No previous ECG available for comparison Electronically Signed On 08-27-2022 7:07:49 WAITER/WAITRESS HEAD by Phu Ardon M.D. [id number]
[2022-08-26 12:30] VITALS: PULSE 79; RESP 18; O2SAT 93
[2022-08-26] MEDS: ipratropium-albuterol 3 mL Neb INHALATION (12:30)
[2022-08-26 12:39] LABS: Basophils # 0.1 10^3/uL (0.0-0.1); Basophils % 0.5 %; Eosinophils # 0.4 10^3/uL (0.0-0.8); Eosinophils % 3.8 %; Hematocrit 30.6 % (37.0-47.0); Hemoglobin 9.9 g/dL (11.5-15.3); Lymphocytes % 9.1 %; Mean Corpuscular HGB Conc 32.4 g/dL (30.0-36.0); Mean Corpuscular Hemoglobin 29.6 pg (28.0-34.0); Mean Corpuscular Volume 91.6 fl (81-99); Mean Platelet Volume 9.7 fL (7.4-10.4); Monocytes # 0.7 10^3/uL (0.2-0.9); Monocytes % 6.3 %; Neutrophils # 8.39 10^3/uL (1.8-7.7); Nucleated Red Blood Cells % 0 %; Platelet Count 172 10^3/cmm (130-400); Red Blood Count 3.34 10^6/uL (4.1-5.3); Red Cell Distribution Width 13.4 % (12.1-15.1); White Blood Count 10.5 10^3/uL (4.0-10.0)
[2022-08-26 13:00] VITALS: BP 157/73; PULSE 78; O2SAT 96
[2022-08-26 13:05] LABS: Lactic Sepsis W/Reflex 1.2 mmol/L (0.5-2.2)
[2022-08-26 13:08] LABS: Troponin(5th) Baseline 44 ng/L (0-10)
[2022-08-26 13:15] LABS: Alanine Aminotransferase 10 U/L (0-33); Albumin Level 3.7 g/dL (3.5-5.2); Alkaline Phosphatase 54 U/L (35-105); Aspartate Amino Transferase 15 U/L (0-32); Blood Urea Nitrogen 24 mg/dL (8-23); Carbon Dioxide 20 mmol/L (22-29); Chloride 102 mmol/L (98-107); Globulin 2.9 g/dL (1.3-4.6); Glucose 103 mg/dL (65-115); Osmolality Calculated 280 mOsm/kg (285-295); Sodium 133 mmol/L (136-145); Total Bilirubin 1.7 mg/dL (0.15-1.2); Total Protein 6.6 g/dL (6.6-8.7)
--- NOTE | 2022-08-26 13:24 | CT_ITS ---
WS: [id number] CT CHEST TECHNIQUE: Noncontrast CT of the chest with coronal and sagittal reformatted images. CLINICAL INFORMATION: abnormal cxr, cough, hx renal tx COMPARISON: None. DLP: 174.[address] scans at [facility] use at least one of these dose optimization techniques: automated e xposure control; mA and/or kV adjustment per patient size (includes targeted exams where dose is matc hed to clinical indication); or iterative reconstruction. FINDINGS: Small bilateral pleural effusions. Compressive atelectasis in the lower lobes bilaterally RIGHT great er than LEFT. Upper lobes are better aerated. Marked cardiomegaly. Interstitial edema in the lung bas es. Slight subsegmental atelectasis in the lingula and RIGHT middle lobe. No axillary lymphadenopathy. Small nodules in the thyroid. Normal caliber thoracic aorta. Mild aortic calcification. No mediastinal or hilar lymphadenopathy. Tiny pericardial effusion. Small esophageal hiatal hernia. Thoracolumbar scoliosis. Thoracic kyphosis. CT/CT chest wo con [id number] IMPRESSION: 1. Small bilateral pleural effusions RIGHT greater than LEFT with compressive atelectasis the lung bases. 2. Interstitial edema in the lung bases likely CHF. Upper lobes are better aer ated. 3. No mediastinal or hilar lymphadenopathy. 4. Tiny pericardial effusion. 5. Advanced thoracolumbar scoliosis with thoracic kyphosis. 6. Marked cardiomegaly.
[2022-08-26 13:42] LABS: NT Pro B Type Natriuretic Pept > 70000 pg/mL (0-125)
[2022-08-26 14:23] LABS: Adenovirus Not Detected (NOT DETECT); Chlamydia Pneumoniae Not Detected (NOT DETECT); Coronavirus 229E,HKU1,NL63,OC4 Not Detected (NOT DETECT); Human Metapneumovirus Not Detected (NOT DETECT); Human Rhinovirus/Enterovirus Not Detected (NOT DETECT); Influenza A Not Detected (NOT DETECT); Influenza A H1 Not Detected (NOT DETECT); Influenza A H1-2009 Not Detected (NOT DETECT); Influenza A H3 Not Detected (NOT DETECT); Influenza B Not Detected (NOT DETECT); Mycoplasma Pneumoniae Not Detected (NOT DETECT); Parainfluenza Virus Type 1 Not Detected (NOT DETECT); Parainfluenza Virus Type 2 Not Detected (NOT DETECT); Parainfluenza Virus Type 3 Not Detected (NOT DETECT); Parainfluenza Virus Type 4 Not Detected (NOT DETECT); Respiratory Syncytial Virus A Not Detected (NOT DETECT); Respiratory Syncytial Virus B Not Detected (NOT DETECT); SARS-COV-2 Not Detected (NOT DETECT)
[2022-08-26 14:30] VITALS: BP 153/81; PULSE 84; O2SAT 95
[2022-08-26] MEDS: FUROsemide 10 mg/mL SDV 4mL 40 MG IVP (14:57)
[2022-08-26 15:00] VITALS: BP 157/82; PULSE 82; O2SAT 95
[2022-08-26 15:12] LABS: Troponin 5 2HR 42.25 ng/L (0-10)
[2022-08-26 15:16] LABS: Troponin 5 2HR Delta -1.75 ABS# (0-10)
--- NOTE | 2022-08-26 16:32 | P.HP_ITS ---
Providers/Chief Complaint Admitting Physician: Jovan Cortez MD Primary Care Provider: NICCI Nobles Chief Complaint: SOB History of Present Illness Blanca Anguiano is a 72 year old female who was been struggling with shortness of breath for last 2 months, she was prescribed erythromycin and ago by the PCP however symptoms have not improved, she is endorsing orthopnea, PND. Patient is a kidney transplant patient, kidney was transplanted in 1991 she has been on steroids and cyclosporine. Patient is stating that her urine output has decreased, she follows up with Dr. Kong. She has not noticed any chest pain, fever, nausea or vomiting. She was taking Lasix in the past but not recently. In the ER she has been diagnosed with fluid overload, pulmonary edema, congest leif heart failure concern, she has been given steroids, 40 mg of Lasix along with DuoNeb. She is full code Son is at the bedside Review of Systems Const: Reports: body aches; Denies: fever(s) Eyes: Denies: change in vision ENMT: Denies: throat pain Card: Reports: swelling of feet/ankles, dyspnea on exertion and orthopnea; Denies: chest pain Resp: Reports: dyspnea GI: Denies: abdominal pain : Denies: flank pain Musc: Denies: neck pain Skin/Breast: Denies: rash Neuro: Denies: headache(s) Psych: Reports: anxiety Endo: Denies: polyuria Khadar/Lymph: Denies: easy bruising All/Imm: Denies: urticaria Medications/Allergies Home Medications Medication Instructions Recorded Confirmed Last Taken Type albuterol sulfate 90 mcg/actuation 1 puff inhalation Q6H PRN 08/26/22 08/26/22 Unknown History aerosol inhaler Shortness Of Breath amlodipine 5 mg tablet 5 mg PO BEDTIME 08/26/22 08/26/22 08/25/22 History atorvastatin 20 mg tablet 20 mg PO DAILY 08/26/22 08/26/22 08/25/22 History calcium carbonate 600 mg-vitamin 1 tab PO DAILY 08/26/22 08/26/22 08/26/22 History D3 5 mcg (200 unit) tablet calcium citrate 200 mg (950 mg) 600 mg PO DAILY 08/26/22 08/26/22 08/25/22 History tablet cyclosporine modified 25 mg capsule 25 mg PO BID 08/26/22 08/26/22 08/26/22 History metoprolol tartrate 100 mg tablet 100 mg PO BID 08/26/22 08/26/22 08/26/22 History prednisone 10 mg tablet 10 mg PO EVERY OTHER DAY 08/26/22 08/26/22 08/26/22 His tory vit C 250 mg-vit E 90 mg-zinc 40 1 tab PO DAILY 08/26/22 08/26/22 08/26/22 History mg-copper 1 [id number] capsule (PreserVision AREDS-2) Allergies Allergy/AdvReac Type Severity Reaction Status Date / Time Iodinated Contrast Media Allergy Mild Unknown Verified 09/14/21 12:27 PFSH Acute PFSH: Medical History Emphysema/COPD HTN (hypertension) Surgical History (Updated 08/26/22 @ 17:25 by Jovan Cortez MD) H/O thyroidectomy History of kidney transplant Family History Other CAD (coronary artery disease) Social History Second hand smoke exposure: Yes Female Reproductive History: Date of last menstrual period: 08/26/22 Vitals/I&O/Wt Last Vital Signs Temp 97.5 F L 08/26/22 11:50 Pulse 82 08/26/22 15:00 Resp 18 08/26/22 12:30 BP 157/82 08/26/22 15:00 Pulse Ox 95 08/26/22 15:00 O2 Del Method 08/26/22 15:00 Weight last 48 hrs Weight 38.102 kg Physical Exam Narrative: Patient is awake and alert Clinically looks euvolemic No signs of fluid overload clinically However she had diminished breath sounds bilaterally at the bases Currently on room air Dry skin Cachectic, malnourished No signs of edema of legs Awake and alert S1, S2 Appropriate mood and affect Son at the bedside Data : 08/26/22 12:29 08/26/22 12:29 A&P Assessment and plan (1) Heart failure: (2) Pleural effusion, bilateral: (3) Pulmonary edema: (4) Emphysema/COPD: Plan Acute CHF EF is unknown Worsening kidney function versus CHF Request echo Will call nephro in the morning Check cyclosporine level Continue steroids Patient does make little bit of urine I will start her on IV Lasix Hypertension: Continue amlodipine and Lasix along metoprolol DVT prophylaxis with heparin Full code Renal diet Anticipating discharge within 48 hours Attestations Medical Necessity Statement*: Anticipating discharge within 48 hours Time Spent in Patient Care: 40 Coding Level of Care Code Acute Paper Coating Machine Operator for Will Collado Diagnoses Heart failure I50.9 Pleural effusion, bilateral J90 Pulmonary edema J81.1 Emphysema/COPD J43.9
--- NOTE | 2022-08-26 16:50 | USCV_ITS ---
Blanca Anguiano Age: 72 Gender: F : 1950 Exam Date: 08/26/2022 19:41 Ordering Phys: Jovan Cortez MD Technologist: MIHAELA Exam Location[place] [facility] [place] Indication: CHF SOB BP: 157 / 82 HR: 63 Rhythm: Sinus Technical Quality: Suboptimal MEASUREMENTS (Male / Female) Normal Values 2D ECHO LV Diastolic Diameter PLAX 4.0 cm 4.2 - 5.9 / 3.9 - 5.3 cm LV Systolic Diameter PLAX 2.9 cm IVS Diastolic Thickness 1.4 cm 0.6 - 1.0 / 0.6 - 0.9 cm IVS Systolic Thickness 1.6 cm LVPW Diastolic Thickness 1.5 cm 0.6 - 1.0 / 0.6 - 0.9 cm LVPW Systolic Thickness 1.0 cm LVOT Diameter 1.6 cm LV Ejection Fraction 2D Teich 54.1 % LV Ejection Fraction MOD 2C 66.2 % LV Ejection Fraction 2C AL 66.1 % LA Diameter 4.1 cm LA Width 4.8 cm LA Height 4.9 cm RA Width 2.8 cm RA Height 4.0 cm Aorta at Sinotubular Diameter 3.2 cm IVC Diameter 1.5 cm M-MODE Aortic Annulus Diameter 2.8 cm LA Ao Ratio MM 1.6 MV E Point Septal Separation 0.4 cm DOPPLER AV Peak Velocity 153.0 cm/s LVOT Peak Velocity 126.0 cm/s AV Area Cont Eq vti 1.6 cm squared AV Area Cont Eq pk 1.7 cm squared MV Area PHT 3.5 cm squared Mitral E to A Ratio 0.6 MV E' Velocity 45.0 cm/s Mitral E to MV E' Ratio 11.7 Mitral E to LV E' Lateral Ratio 9.3 Mitral E to LV E' Septal Ratio 15.8 TR Peak Velocity 294.0 cm/s TR Peak Gradient 34.6 mmHg TV Peak E Velocity 54.0 cm/s Right Atrial Pressure 5.0 mmHg Pulmonary Artery Systolic Pressu 39.6 mmHg PV Peak Velocity 127.0 cm/s RV Acceleration Time 0.1 s RV Ejection Time 0.5 s RV AcT/ET 0.2 FINDINGS Left Ventricle Normal left ventricular size, systolic function and wall thickness, with no regional wall motion abnormalities. Normal left ventricular wall thickness. Normal diastolic filling pattern. Right Ventricle The right ventricle is normal in size and function. Right Atrium Normal right atrial size. Left Atrium Severely increased left atrial size. Mitral Valve Structurally normal mitral valve without significant stenosis or prolapse. Moderate mitral valve regurgitation. Aortic Valve Structurally normal aortic valve without significant sclerosis or stenosis. There is no aortic regurgitation. Tricuspid Valve Structurally normal tricuspid valve without significant stenosis. Mild tricuspid valve regurgitation. . Pulmonary artery systolic pressure is mildly elevated, 40 mmHg. Pulmonic Valve Structurally normal pulmonic valve without significant stenosis. There is no pulmonic regurgitation. Pericardium Small pericardial effusion, circumferential < 1 cm with no diastolic collapse or echo evidence of tamponade physiology. Aorta Normal ascending aorta dimension. IVC The inferior vena cava appears normal. CONCLUSIONS Normal left ventricular size, systolic function and wall thickness, with no regional wall motion abnormalities. Normal left ventricular wall thickness. Normal diastolic filling pattern. Structurally normal mitral valve without significant stenosis or prolapse. Moderate mitral valve regurgitation. Structurally normal tricuspid valve without significant stenosis. Mild tricuspid valve regurgitation. . Pulmonary artery systolic pressure is mildly elevated, 40 mmH Small pericardial effusion, circumferential < 1 cm with no diastolic collapse or echo evidence of tamponade physiology. Felipe Griffin MD (Electronically Signed) Final Date: 27 August 2022 17:27 S
[2022-08-26 17:20] LABS: D Dimer 3.94 ug/mIFEU (0-0.59)
[2022-08-26 17:37] LABS: Thyroid Stimulating Hormone 2.13 uIU/mL (0.27-4.20)
[2022-08-26] MEDS: heparin 5,000 unit/mL INJ 1 mL 5000 UNIT SUBCUT (18:04)
[2022-08-26] MEDS: metoprolol tartrate 50 mg Tablet 100 MG PO (18:08)
--- NOTE | 2022-08-26 18:15 | ECG_ITS ---
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
[2022-08-26 19:11] LABS: Troponin 5 6HR 39.02 ng/L (0-10)
[2022-08-26 19:14] LABS: Troponin 5 6HR Delta -4.98 ng/L (0-12)
[2022-08-26] MEDS: amlodipine 5 mg Tablet PO (20:39)
[2022-08-27] VITALS (7 sets, daily range): BP systolic 133–151; BP diastolic 73–80; PULSE 78–87; RESP 16–18; TEMP 36.7–37; O2SAT 90–95
[2022-08-27] MEDS: heparin 5,000 unit/mL INJ 1 mL 5000 UNIT SUBCUT ×3 (01:15→17:26)
[2022-08-27 05:03] LABS: Basophils % 0.2 %; Hematocrit 29.7 % (37.0-47.0); Hemoglobin 9.6 g/dL (11.5-15.3); Lymphocytes # 0.6 10^3/uL (0.8-4.8); Lymphocytes % 13.6 %; Mean Corpuscular HGB Conc 32.3 g/dL (30.0-36.0); Mean Corpuscular Hemoglobin 29.5 pg (28.0-34.0); Mean Corpuscular Volume 91.4 fl (81-99); Mean Platelet Volume 10.1 fL (7.4-10.4); Monocytes # 0.1 10^3/uL (0.2-0.9); Monocytes % 2.3 %; Neutrophils # 3.91 10^3/uL (1.8-7.7); Neutrophils % 83.1 %; Nucleated Red Blood Cells % 0 %; Platelet Count 164 10^3/cmm (130-400); Red Blood Count 3.25 10^6/uL (4.1-5.3); Red Cell Distribution Width 13.2 % (12.1-15.1); White Blood Count 4.7 10^3/uL (4.0-10.0)
[2022-08-27 05:26] LABS: Anion Gap 18.3 (5-19); Blood Urea Nitrogen 36 mg/dL (8-23); C Reactive Protein 30.9 mg/L (0.0-4.9); Calcium 7.7 mg/dL (8.5-10.5); Carbon Dioxide 18 mmol/L (22-29); Chloride 104 mmol/L (98-107); Creatinine Clr Calc Pharmacy 15.0688; Glucose 140 mg/dL (65-115); Magnesium 1.8 mg/dL (1.7-2.3); Osmolality Calculated 293 mOsm/kg (285-295); Phosphorus 4.6 mg/dL (2.5-4.5); Potassium 4.3 mmol/L (3.5-5.1); Sodium 136 mmol/L (136-145)
[2022-08-27] MEDS: sodium bicarbonate 650 mg Tablet PO ×2 (09:26→17:26)
[2022-08-27] MEDS: metoprolol tartrate 50 mg Tablet 100 MG PO ×2 (09:27→17:26)
--- NOTE | 2022-08-27 12:06 | P.PN_ITS ---
Subjective Subjective: Hold off on cyclosporine Minimal urine output will call nephro Vitals/I&O/Wt Last Vital Signs Temp 98.5 F 08/27/22 11:12 Pulse 86 08/27/22 11:12 Resp 18 08/27/22 11:12 BP 146/73 08/27/22 11:12 Pulse Ox 90 08/27/22 11:12 O2 Del Method 08/27/22 11:12 08/26/22 08/27/22 08/27/22 22:59 06:59 14:59 Intake Total 480 / 480 Balance 480 / 480 Weight last 48 hrs Weight 38.102 kg Physical Exam Narrative: Patient is clinically looking dehydrated Diminished breath sounds at bases Abdomen soft Mild crackles on lung auscultation Clinically patient does not look fluid overloaded Awake and alert Hard of hearing S1, S2 son at the bedside Data : 08/27/22 04:34 08/27/22 04:34 A&P Assessment and plan (1) Heart failure: (2) Pleural effusion, bilateral: (3) Pulmonary edema: (4) Emphysema/COPD: (5) History of kidney transplant: Plan Acute CHF exacerbation Pulm edema Patient not requiring oxygen Patient has not responded to Lasix Minimal urine output Acute on chronic chronic kidney disease Cyclosporine toxicity versus transplant rejection Will call air cargo ground crew supervisor today Follow-up with on echo Patient is full code On renal diet Attestations Medical Necessity Statement*: Continue medical management Time Spent in Patient Care: 40 Coding Level of Care Code Acute Rib Cutter for Chg Fwd Diagnoses Heart failure I50.9 Pleural effusion, bilateral J90 Pulmonary edema J81.1 Emphysema/COPD J43.9 History of kidney transplant Z94.0
--- NOTE | 2022-08-27 12:22 | PC.CHAP ---
Pastoral Care Encounter/Spiritual Assessment Type of Contact [] Declined hog grader visit [] Patient/Family/Request visit [] Outpatient visit [] Follow-up visit [] Physician referral [] Code/Alert [x] Routine visit [] Staff referral [] Actively dying [] Patient sleeping [x] Family support [] [] Out of room [] Palliative care [] [] Receiving care in room [] Pre-surgical visit [] Trauma [] Long length of stay [] ICU visit [] Other: Relational/Emotional Strength [] Patient feels connected with others/family/visitors/staff [] Distress [] Loneliness/isolation [] Abandonment Spirituality of Patient [x] Person of Hellen [] Attends Buddhist of their Hellen [x] Believes in Prayer [] Reads Bible or Jainism materials [] There are Spiritual issues to be addressed Water Jet Loom Fixer Interventions [x] Prayer [] Active listening [] Non-anxious presence [] Spiritual/emotional support [] Crisis/trauma care [] Spiritual counseling [] Bereavement support [] Provided bereavement packet [] Provided Bible/devotional materials [] Provided toy/stuffed animal, coloring book to patient or family member [] Provided Communion [] Anointing/[place] [] Salvation [x] Completed spiritual assessment [] Other: Impact on Illness or Injury [] Angry [] Fearful [] Anxious [] Often cries [] Exhaustion [] Unable to work [] Unable to attend restorationism [] Unable to walk/stand [] Unable to read [] Unable to drive [] Unable to eat/drink [] Unable to sleep [] Unable to be with family [] Patient intubated [] Other: Summary Time spent with patient 10 min
--- NOTE | 2022-08-27 17:27 | NM_ITS ---
WS: [id number] NUCLEAR MEDICINE LUNG VENTILATION AND PERFUSION CLINICAL INFORMATION: Rule out pulmonary embolism, shortness of breath TECHNIQUE: Ventilation/perfusion lung scan with 33.0 mCi technetium 99m DTPA. 5.5 mCi MAA COMPARISON: CT chest August 26, 2022 FINDINGS: Chest CT from August 26, 2022 demonstrates bilateral pleural effusions with compressive atelectasis in the lung bases. Marked cardiomegaly. Patchy radiotracer uptake on the perfusion weighted images. Patchy ventilatory uptake with central deposition along the bronchi. Several matched defects. No larg e mismatched defects. Low probability for pulmonary embolus. NM/NM pul vent and perfus* [id number] IMPRESSION: 1. Low probability for pulmonary embolus. Exam interpreted using the PIOPED II criteria 2008: 1. Normal 2. High probability (> 80%) 3. Intermediate probability (20-79%) 4. Low probability (10-19%) 5. Very low probability (<10%) JNM 2007 6. Indeterminate
--- NOTE | 2022-08-27 19:53 | PM.CONSULT ---
Providers/Reason For Consult Consulting Physician/Specialty*: Hospitalist Reason for Consult*: CIRILO, volume overload Requesting Physician: Dr. Cortez Attending Physician: Jovan Cortez MD Primary Care Provider: NICCI Nobles History of Present Illness History of Present Illness Blanca Anguiano is a 72 year old female with past medical history of hypertension, COPD, kidney failure-status post cadaveric renal transplant in 1997, managed by prednisone and cyclosporine for immunosuppression presented to the emergency department complaining of shortness of breath and orthopnea. Patient denies any nausea vomiting or diarrhea. But overall patient's family reports that she has poor p.o. intake and they have noticed a decreased urine output in the last couple of weeks. Denies any NSAID use. Patient followed by Dr. Ana Coronado from nephrology as outpatient. Lab data significant for hemoglobin of 9.6, creatinine of 2.0 CO2 was low at 18 calcium was 7.7 phosphorus was 6.6. Also has elevated CRP levels echocardiogram showed slightly increased pulmonary systolic pressures and moderate mitral regurg. Patient baseline creatinine seems to be anywhere from 1.7-2.2 since 2017. She presented with a creatinine of 1.9 and creatinine is 2.0 today. Urine output is not accurately documented Review of Systems Narrative: Patient is very hard of hearing, unable to obtain full ROS but family reports no other symptoms other than those mentioned in the HPI above Medications/Allergies Home Medications Medication Instructions Recorded Confirmed Last Taken Type albuterol sulfate 90 mcg/actuation 1 puff inhalation Q6H PRN 08/26/22 08/26/22 Unknown History aerosol inhaler Shortness Of Breath amlodipine 5 mg tablet 5 mg PO BEDTIME 08/26/22 08/26/22 08/25/22 History atorvastatin 20 mg tablet 20 mg PO DAILY 08/26/22 08/26/22 08/25/22 History calcium carbonate 600 mg-vitamin 1 tab PO DAILY 08/26/22 08/26/22 08/26/22 History D3 5 mcg (200 unit) tablet calcium citrate 200 mg (950 mg) 600 mg PO DAILY 08/26/22 08/26/22 08/25/22 History tablet cyclosporine modified 25 mg capsule 25 mg PO BID 08/26/22 08/26/22 08/26/22 History metoprolol tartrate 100 mg tablet 100 mg PO BID 08/26/22 08/26/2208/26/22 History prednisone 10 mg tablet 10 mg PO EVERY OTHER DAY 08/26/22 08/26/22 08/26/22 History vit C 250 mg-vit E 90 mg-zinc 40 1 tab PO DAILY 08/26/22 08/26/22 08/26/22 History mg-copper 1 [id number] capsule (PreserVision AREDS-2) Allergies Allergy/AdvReac Type Severity Reaction Status Date / Time Iodinated Contrast Media Allergy Mild Unknown Verified 09/14/21 12:27 Current Medications Generic Name Dose Route Start Last Admin Trade Name Freq PRN Reason Stop Dose Admin Amlodipine Besylate 5 mg 08/26/22 21:00 08/26/22 20:39 Amlodipine 5 Mg Tablet PO 5 mg BEDTIME MARANDA Administration Furosemide 40 mg 08/27/22 09:00 08/27/22 14:01 Furosemide 10 Mg/Ml Sdv 4ml IVP Not Given DAILY MARANDA Heparin Sodium (Porcine) 5,000 unit 08/26/22 16:50 08/27/22 17:26 Heparin 5,000 Unit/Ml Inj 1 Ml SUBCUT 5,000 unit Q8H MARANDA Administration Metoprolol Tartrate 100 mg 08/26/22 18:00 08/27/22 17:26 Metoprolol Tartrate 50 Mg Tablet PO 100 mg BID MARANDA Administration Senna/Docusate Sodium 1 tab 08/27/22 09:00 08/27/22 14:03 Sennosides-Docusate Tablet PO Not Given DAILY MARANDA PFSH Acute PFSH: Medical History Emphysema/COPD HTN (hypertension) Surgical History (Updated 08/26/22 @ 17:25 by Jovan Cortez MD) H/O thyroidectomy History of kidney transplant Family History Other CAD (coronary artery disease) Social History Second hand smoke exposure: Yes Female Reproductive History: Date of last menstrual period: 08/26/22 Vitals/I&O/Wt Last Vital Signs Temp 98.6 F 08/27/22 15:50 Pulse 80 08/27/22 15:50 Resp 18 08/27/22 15:50 BP 146/80 08/27/22 15:50 Pulse Ox 94 08/27/22 15:50 O2 Del Method 08/27/22 11:12 08/27/22 08/27/22 08/27/22 06:59 14:59 22:59 Intake Total 600 / 600 360 / 960 Balance 600 / 600 360 / 960 Weight last 48 hrs Weight 38.102 kg Physical Exam Narrative: Patient is awake alert, hard of hearing, no acute distress PERRLA, neck supple, S1-S2 are regular rate and rhythm per report Clear to auscultation per report Trace lower extremity edema Data 08/27/22 04:34 08/27/22 04:34 A&P Assessment and plan (1) History of kidney transplant: 1. Chronic kidney disease stage III/IV: Patient's baseline creatinine is anywhere from 1.7-2.2 since 2017. Given her BMI of 14 indicating poor muscle mass, creatinine based EGFR estimations will be inaccurate and will underestimate her GFR. -Will order 24-hour urine creatinine clearance, and possibly Cystatin C. -Also will obtain records from his mineral ore processing labourer office. Avoid nephrotoxins, dose meds per GFR less than 20. -Check urine electrolytes Check renal ultrasound (transplant kidney ultrasound with Doppler). -Add low-sodium diet and fluid restriction to 1500 mL 2. Kidney transplant status: Cadaveric renal transplant in 1997, on prednisone and cyclosporine for immunosuppression. -Continue prednisone, cyclosporine is on hold and CSA levels pending -We will follow-up on CSA levels 3. Metabolic acidosis: Switch to Bicitra 30 cc twice daily 4. Anemia: Hemoglobin 9.6 check iron studies, 5. Metabolic bone disease: Has low calcium of 7.7 and phosphorus elevated at 6.6-indicating probable advanced CKD. Replete calcium, check PTH and vitamin D levels 6. Volume overload-noted to have bilateral pleural effusions as well as vascular congestion and cardiomegaly, echo with normal EF with possible mild right heart failure. Her volume overload is most likely from advanced CKD, continue Lasix 40 mg daily for now, document urine outputs accurately, daily weights, sodium restriction and fluid restriction. Patient evaluated using audiovisual cart. Time spent 45 minutes. Consult Attestations Medical Necessity Statement: Needs inpatient stay Coding Level of Care Code New Pt Acute Automotive Service Director for Chg Fwd Patient Type New History Expanded Problem Focused Exam Expanded Problem Focused Medical Decision Making Moderate Complexity Diagnoses History of kidney transplant Z94.0
[2022-08-27] MEDS: citric acid-sodium citrate 30 mL UDC PO (21:09)
[2022-08-27] MEDS: amlodipine 5 mg Tablet PO (21:09)
[2022-08-27 21:46] LABS: Urine Random Chloride 55 mmol/L; Urine Random Sodium 65 mmol/L
[2022-08-27 21:48] LABS: Blood Urine 2+ (Negative); Glucose Urine UA Norm (Normal); Ketones Urine Negative (Negative); Protein Urine 3+ (Negative); Urine Appearance Clear (CLEAR); Urine Color Yellow (Yellow); pH Urine 5 (5-7)
[2022-08-27 21:49] LABS: Add Urine Culture? No; Add Urine Microscopic? YES; Bacteria Urine TRACE /hpf; Bilirubin Urine Neg (Negative); Leukocyte Esterase Urine Negative (Negative); Nitrate Urine Negative (Negative); Urobilinogen Urine Norm (Negative)
[2022-08-27] MEDS: ipratropium-albuterol 3 mL Neb INHALATION (23:15)
[2022-08-28] VITALS (7 sets, daily range): BP systolic 134–150; BP diastolic 68–71; PULSE 78–96; RESP 16–18; TEMP 36.4–36.9; O2SAT 87–93
[2022-08-28] MEDS: heparin 5,000 unit/mL INJ 1 mL 5000 UNIT SUBCUT ×2 (00:09→09:32)
[2022-08-28 03:05] LABS: Hematocrit 26.7 % (37.0-47.0); Hemoglobin 8.7 g/dL (11.5-15.3); Lymphocytes # 1.2 10^3/uL (0.8-4.8); Lymphocytes % 11.6 %; Mean Corpuscular HGB Conc 32.6 g/dL (30.0-36.0); Mean Corpuscular Hemoglobin 29.7 pg (28.0-34.0); Mean Corpuscular Volume 91.1 fl (81-99); Mean Platelet Volume 10.8 fL (7.4-10.4); Monocytes % 10.1 %; Neutrophils # 7.73 10^3/uL (1.8-7.7); Neutrophils % 77.9 %; Nucleated Red Blood Cells % 0 %; Platelet Count 165 10^3/cmm (130-400); Red Blood Count 2.93 10^6/uL (4.1-5.3); Red Cell Distribution Width 13.6 % (12.1-15.1); White Blood Count 9.9 10^3/uL (4.0-10.0)
[2022-08-28 03:26] LABS: Ferritin 266 ng/mL (15-150); Iron 26 ug/dL (37-145); Percent Saturation 15.6 % (20-50); Total Iron Binding Capacity 166 mcg/dl; Unsaturated Iron Binding 140 ug/dL (112-347)
[2022-08-28 03:29] LABS: Anion Gap 18.9 (5-19); Blood Urea Nitrogen 51 mg/dL (8-23); Calcium 7.4 mg/dL (8.5-10.5); Carbon Dioxide 22 mmol/L (22-29); Chloride 107 mmol/L (98-107); Glucose 94 mg/dL (65-115); Osmolality Calculated 311 mOsm/kg (285-295); Potassium 3.9 mmol/L (3.5-5.1); Sodium 144 mmol/L (136-145)
[2022-08-28 04:00] LABS: Calcium 7.2 mg/dL (8.5-10.5); Parathyroid Hormone 37.5 pg/mL (15-65)
[2022-08-28 07:15] LABS: Glucose Point of Care 96 mg/dL (70-110)
[2022-08-28] MEDS: ipratropium-albuterol 3 mL Neb INHALATION (08:51)
[2022-08-28] MEDS: metoprolol tartrate 50 mg Tablet 100 MG PO (09:14)
[2022-08-28] MEDS: predniSONE 10 mg Tablet PO (09:14)
[2022-08-28] MEDS: sennosides-docusate Tablet 1 TAB PO (09:14)
[2022-08-28] MEDS: FUROsemide 10 mg/mL SDV 4mL 40 MG IVP (09:15)
--- NOTE | 2022-08-28 09:21 | XR_ITS ---
WS: [id number] Exam: XR chest 1V portable [id number] Date/Time of Exam: 08/28/2022 9:26 AM Reason For Exam: CXR Comparison 08/26/2022. Marked cardiac enlargement with pulmonary vascular congestion and bilateral pleural effusions suggest ing CHF. Consolidating infiltrate in the lingula and probably left lower lobe. The lungs are fully ex panded. The mediastinum is normal in contour. Bony structures are intact as visualized. XR/XR chest 1V portable [id number] IMPRESSION: 1. Marked cardiac enlargement with bilateral pleural effusions suggesting conge stive heart failure. Very little change since the previous study. 2. Consolidating infiltrate in the lingula which may represent superimposed pne umonia.
--- NOTE | 2022-08-28 10:15 | PM.PN ---
Subjective Subjective: no O2 FEELING WELL Medications: Reviewed: Yes Vitals/I&O/Wt Last Vital Signs Temp 98.0 F 08/28/22 07:18 Pulse 78 08/28/22 08:53 Resp 18 08/28/22 08:53 BP 150/71 08/28/22 07:18 Pulse Ox 93 08/28/22 08:53 O2 Del Method 08/28/22 08:53 O2 Flow Rate 1 08/28/22 08:53 08/27/22 08/28/22 08/28/22 22:59 06:59 14:59 Intake Total 360 / 960 240 / 240 Output Total 110 / 110 Balance 250 / 850 240 / 240 Weight last 48 hrs Weight 40.597 kg Weight 38.102 kg Physical Exam Narrative: Patient is awake alert, hard of hearing, no acute distress PERRLA, neck supple, S1-S2 are regular rate and rhythm per report Clear to auscultation per report Trace lower extremity edema Data 08/28/22 02:05 08/28/22 02:05 A&P Assessment and plan (1) History of kidney transplant: Plan (1) History of kidney transplant: 1.? Chronic kidney disease stage III/IV: Patient's baseline creatinine is anywhere from 1.7-2.2 since 2017.? Given her BMI of 14 indicating poor muscle mass, creatinine based EGFR estimations will be inaccurate and will underestimate her GFR.? - Would benefit from 24-hour urine creatinine clearance, and possibly Cystatin C.? -Spoke to pts Project Portfolio Analyst Dr. brower : plan for follow up in their office next week , and repeat labs, consider transplant kidney biopsy - pt likely heading towards HD inititation soon Avoid nephrotoxins, dose meds per GFR less than 20. - renal US noted -Add low-sodium diet and fluid restriction to 1500 mL -UA with 3+ protein -DC home on 40 mg PO lasix 2.? Kidney transplant status: Cadaveric renal transplant in 1997, on prednisone and cyclosporine for immunosuppression. -Continue prednisone, cyclosporine is on hold and CSA levels pending- can resume and follow up with out pt nephrology in 1 week -We will follow-up on CSA levels 3.? Metabolic acidosis: on Bicitra 30 cc twicedaily- Can DC upon discharge 4.? Anemia: Hemoglobin 8.7 check iron studies, 5.? Metabolic bone disease: Has low calcium of 7.7 and phosphorus elevated at 6.6-indicating probable advanced CKD.? Replete calcium, check PTH and vitamin D levels 6.? Volume overload-noted to have bilateral pleural effusions as well as vascular congestion and cardiomegaly, echo with normal EF with possible mild right heart failure.? Her volume overload is most likely from advanced CKD, continue Lasix 40 mg daily for now, document urine outputs accurately, daily weights, sodium restriction and fluid restriction. Patient evaluated using audiovisual cart.? Time spent 45 minutes. Attestations Medical Necessity Statement*: Continue medical management Time Spent in Patient Care: 40 Coding Level of Care Code Acute Tea Bag Packer for Isabelg Fwcara Diagnoses History of kidney transplant Z94.0
--- NOTE | 2022-08-28 11:36 | PM.DCS ---
Discharge Providers Date of Admission: 08/26/22 14:35 Date of Discharge: August 28, 2022 Attending Provider at Admission: Jovan Cortez MD Attending Provider at Discharge: Jovan Cortez MD Primary Care Provider: NICCI Nobles Diagnoses at Discharge Discharge Diagnosis (1) History of kidney transplant: Status: Acute Reason for Visit Reason for Visit: SOB Hospital Course Hospital Course 72 female who has history of cadaveric kidney transplant 1997 which has been managed with prednisone and cyclosporine, follows up with nephrology associate in [place] with Dr. Manley and see the MANAGER PATIENT Ana presented with orthopnea PND and worsening of shortness of breath. She has been diagnosed with diastolic congestive heart failure. She did not make enough urine with use of Lasix. Nephro was consulted. There is concern for transplant rejection versus cyclosporine toxicity. Cyclosporine levels have been ordered they will take time to come back. Offset Printer spoke with the [place] clinic and recommended outpatient follow-up in case patient would need biopsy. She is high risk for dialysis at this point considering oliguric phase. Decision was made to discharge her on Lasix, cefpodoxime for community-acquired pneumonia and close follow-up with Dr. Manley's clinic in [place]. Patient has not required oxygen, she remained hemodynamically stable. She remains full code for now Physical Exam Narrative: Patient is clinically stable does not look fluid overloaded Diminished breath sounds at bases Abdomen soft Mild crackles on lung auscultation Clinically patient does not look fluid overloaded Awake and alert Hard of hearing S1, S2 son at the bedside Discharge Data Studies Completed and Pending Completed Studies During Hospitalization Category Date Time Status CT chest wo con [id number] Stat Cat Scan 08/26/22 13:24 Completed CXRP [XR chest 1V portable [id number]] Routine Exams 08/28/22 09:21 Completed XR chest 2V* [id number] Stat Exams 08/26/22 12:15 Completed NM pul vent and perfus* [id number] Routine Nuc Med 08/27/22 17:27 Completed CV. echo complete* [id number] Routine Ultrasound 08/26/22 16:50 Completed US renal BI* [id number] Routine Ultrasound 08/28/22 19:39 Completed Pending at discharge Category Date Time Status Creatinine 24 Hour Urine Routine Lab 08/27/22 19:40 Ordered Cyclosporine A Peak 2 Hr Bld Routine Lab 08/27/22 12:09 Ordered Cyclosporine A Trough Blood Routine Lab 08/26/22 20:22 Received Cystatin C w/GFR Routine Lab 08/27/22 19:41 Ordered CV renal transplant [id number] Routine Ultrasound 08/28/22 19:35 Taken Radiology Impressions Chest CT 08/26/22 13:24 IMPRESSION: 1. Small bilateral pleural effusions RIGHT greater than LEFT with compressive atelectasis the lung bases. 2. Interstitial edema in the lung bases likely CHF. Upper lobes are better aerated. 3. No mediastinal or hilar lymphadenopathy. 4. Tiny pericardial effusion. 5. Advanced thoracolumbar scoliosis with thoracic kyphosis. 6. Marked cardiomegaly. Pulmonary Perfusion Imaging 08/27/22 17:27 IMPRESSION: 1. Low probability for pulmonary embolus. Exam interpreted using the PIOPED II criteria 2008: 1. Normal 2. High probability (> 80%) 3. Intermediate probability (20-79%) 4. Low probability (10-19%) 5. Very low probability (<10%) JNM 2006 6. Indeterminate Chest X-Ray 08/28/22 09:21 IMPRESSION: 1. Marked cardiac enlargement with bilateral pleural effusions suggesting congestive heart failure. Very little change since the previous study. 2. Consolidating infiltrate in the lingula which may represent superimposed pneumonia. Renal Ultrasound 08/28/22 19:39 IMPRESSION: 1. LEFT lower quadrant renal transplant. 2. Atrophic [place] kidneys. 3. Simple cyst RIGHT kidney measuring 1.2 x 1.0 cm Laboratory Results WBC 9.9 10^3/uL (4.0-10.0) 08/28/22 02:05 RBC 2.93 10^6/uL (4.1-5.3) L 08/28/22 02:05 Hgb 8.7 g/dL (11.5-15.3) L 08/28/22 02:05 Hct 26.7 % (37.0-47.0) L 08/28/22 02:05 MCV 91.1 fl (81-99) 08/28/22 02:05 MCH 29.7 pg (28.0-34.0) 08/28/22 02:05 MCHC 32.6 g/dL (30.0-36.0) 08/28/22 02:05 RDW 13.6 % (12.1-15.1) 08/28/22 02:05 Plt Count 165 10^3/cmm (130-400) 08/28/22 02:05 MPV 10.8 fL (7.4-10.4) H 08/28/22 02:05 Neut % (Auto) 77.9 % 08/28/22 02:05 Lymph % (Auto) 11.6 % 08/28/22 02:05 Glynn % (Auto) 10.1 % 08/28/22 02:05 Eos % (Auto) 0.0 % 08/28/22 02:05 Baso % (Auto) 0.0 % 08/28/22 02:05 Neut # (Auto) 7.73 10^3/uL (1.8-7.7) H 08/28/22 02:05 Lymph # (Auto) 1.2 10^3/uL (0.8-4.8) 08/28/22 02:05 Glynn # (Auto) 1.0 10^3/uL (0.2-0.9) H 08/28/22 02:05 Eos # (Auto) 0.0 10^3/uL (0.0-0.8) 08/28/22 02:05 Baso # (Auto) 0.0 10^3/uL (0.0-0.1) 08/28/22 02:05 Nucleated RBC % (auto) 0 % 08/28/22 02:05 Nucleated RBCs # 0.0 /100WBC 08/28/22 02:05 D-Dimer 3.94 ug/mIFEU (0-0.59) H 08/26/22 12:29 Sodium 144 mmol/L (136-145) 08/28/22 02:05 Potassium 3.9 mmol/L (3.5-5.1) 08/28/22 02:05 Chloride 107 mmol/L (98-107) 08/28/22 02:05 Carbon Dioxide 22 mmol/L (22-29) 08/28/22 02:05 Anion Gap 18.9 (5-19) 08/28/22 02:05 BUN 51 mg/dL (8-23) H 08/28/22 02:05 Creatinine 2.2 mg/dL (0.5-0.9) H 08/28/22 02:05 GFR Calculation Not Reportable 08/28/22 02:05 Glucose 94 mg/dL (65-115) 08/28/22 02:05 POC Glucose 96 mg/dL (70-110) 08/28/22 06:55 Calculated Osmolality 311 mOsm/kg (285-295) H 08/28/22 02:05 Lactic Acid 1.2 mmol/L (0.5-2.2) 08/26/22 12:29 Calcium 7.4 mg/dL (8.5-10.5) L 08/28/22 02:05 Phosphorus 4.6 mg/dL (2.5-4.5) H 08/27/22 04:34 Magnesium 1.8 mg/dL (1.7-2.3) 08/27/22 04:34 Iron 26 ug/dL (37-145) L 08/28/22 02:05 TIBC 166 mcg/dl 08/28/22 02:05 % Saturation 15.6 % (20-50) L 08/28/22 02:05 Unsat Iron Binding 140 ug/dL (112-347) 08/28/22 02:05 Ferritin 266 ng/mL (15-150) H 08/28/22 02:05 Total Bilirubin 1.7 mg/dL (0.15-1.2) H 08/26/22 12:29 AST 15 U/L (0-32) 08/26/22 12:29 ALT 10 U/L (0-33) 08/26/22 12:29 Alkaline Phosphatase 54 U/L (35-105) 08/26/22 12:29 Troponin T Baseline 44 ng/L (0-10) H 08/26/22 12:29 Troponin T 120 Minute 42.25 ng/L (0-10) H 08/26/22 14:28 Delta Troponin T -1.75 ABS# (0-10) L 08/26/22 14:28 Troponin T Hi Sens 6Hr 39.02 ng/L (0-10) H 08/26/22 18:20 Troponin T Hi Sens 6Hr Delta -4.98 ng/L (0-12) L 08/26/22 18:20 C-Reactive Protein 30.9 mg/L (0.0-4.9) H 08/27/22 04:34 NT-Pro-B Natriuret Pep > 48063 pg/mL (0-125) H 08/26/22 12: Total Protein 6.6 g/dL (6.6-8.7) 08/26/22 12: Albumin 3.7 g/dL (3.5-5.2) 08/26/22 12: Globulin 2.9 g/dL (1.3-4.6) 08/26/22 12: TSH 2.13 uIU/mL (0.27-4.20) 08/26/22 12: PTH Intact 37.5 pg/mL (15-65) 08/28/22 02:05 Calcium (PTH Intact) 7.2 mg/dL (8.5-10.5) L 08/28/22 02:05 Urine Color Yellow (Yellow) 08/27/22 20: Urine Appearance Clear (CLEAR) 08/27/22 20: Urine pH 5 (5-7) 08/27/22 20:30 Ur Specific Parks 1.020 (1.005-1.030) 08/27/22 20: Urine Protein 3+ (Negative) H 08/27/22 20: Urine Glucose (UA) Norm (Normal) 08/27/22 20: Urine Ketones Negative (Negative) 08/27/22 20: Urine Blood 2+ (Negative) H 08/27/22 20: Urine Nitrate Negative (Negative) 08/27/22 20: Urine Bilirubin Neg (Negative) 08/27/22 20: Urine Urobilinogen Norm mg/dL (Negative) 08/27/22 20: Ur Leukocyte Esterase Negative (Negative) 08/27/22 20: Urine RBC 5-10 /hpf (0-2) H 08/27/22 20:30 Urine WBC None /hpf (0-5) 08/27/22 20:30 Ur Squamous Epith Cells 10-15 /hpf (0-5) H 08/27/22 20: Amorphous Sediment Not Reportable 08/27/22 20: Urine Bacteria Trace /hpf (NONE) 08/27/22 20:30 Ur Random Sodium 65 mmol/L 08/27/22 20: Ur Random Chloride 55 mmol/L 08/27/22 20:30 Coronavirus 229E (PCR) Not detected (NOT DETECT) 08/26/22 12: SARS-CoV-2 (PCR) Not detected (NOT DETECT) 08/26/22 12:29 Vitals Last Vital Signs Temp 98.0 F 08/28/22 07:18 Pulse 78 08/28/22 08:53 Resp 18 08/28/22 08:53 BP 150/71 08/28/22 07:18 Pulse Ox 93 08/28/22 08:53 O2 Del Method 08/28/22 08:53 O2 Flow Rate 1 08/28/22 08:53 Discharge Plan Discharge Patient Disposition: Home Condition: Stable Prescriptions: New furosemide [Lasix] 40 mg tablet 40 mg PO DAILY Qty: 30 1RF cefpodoxime 200 mg tablet 200 mg PO BID Qty: 20 0RF Rx Instructions: must administer with a meal/food Continued prednisone 10 mg tablet 10 mg PO EVERY OTHER DAY atorvastatin 20 mg tablet 20 mg PO DAILY metoprolol tartrate 100 mg tablet 100 mg PO BID cyclosporine modified 25 mg capsule 25 mg PO BID amlodipine 5 mg tablet 5 mg PO BEDTIME calcium carbonate-vitamin D3 600 mg-5 mcg (200 unit) Tablet 1 tab PO DAILY calcium citrate 200 mg (950 mg) Tablet 600 mg PO DAILY PreserVision AREDS-2 250-90-40-1 mg Capsule 1 tab PO DAILY albuterol sulfate 90 mcg/actuation HFA aerosol inhaler 1 puff INHALATION Q6H PRN (Reason: Shortness Of Breath) Qty: 6 0RF Discharge Orders: Discharge Order (Routine); Ordered 08/28/22 Ordered By: Jovan Cortez Referrals: dr Vineet [Other] - 1-3 days Bridges,NICCI Mccabe [Primary Care Provider] - 09/04/22 1:30 pm Patient Instructions: Opioid Safety Discharge Attestations Time Spent in Discharge Care*: less than 30 min Quality Metrics Clinical Quality Measures [ No reported AMI, CVA or VTE this stay] Coding Level of Care Code Acute Chg FW DC note Diagnoses History of kidney transplant Z94.0
[2022-08-28 13:09] LABS: Cyclosporine A Trough Level 68 mcg/L
--- NOTE | 2022-08-28 19:35 | USCV_ITS ---
Silvio Blanca Age: 72 Gender: F : 1950 Exam Date: 08/28/2022 06:38 Ordering Phys: Lisandra Will MD Technologist: [place] [facility] [place]: sp renal transplant Aortic Velocity @ SMA (cm/s) 123 RIGHT KIDNEY LEFT KIDNEY Velocity (cm/s) Velocity (cm/s) Sys/Fletcher Sys/Fletcher Resistive Index Resistive Index / Proximal Renal Artery 121.1 / 13.5 0.89 / Mid Renal Artery 81.8 / 11.1 0.86 / Distal Renal Artery 133.1 / 12.5 0.91 / Hilar 28.4 / 4.7 0.83 / Upper Pole 19.9 / 5.3 0.73 / Mid Pole 13.9 / 3.3 0.77 / Lower Pole 9.5 / 1.5 0.84 Renal Aortic Ratio 1.08 Accleration Index (cm/sec2) Hilar 443.00 Upper Pole 307.00 Mid Pole 385.00 Lower Pole 103.00 Kidney Length (mm) 93.5 FINDINGS Appears to be rather poor perfusion to llq transplant kd CONCLUSIONS Left renal transplant simple cyst measuring 2.8 x 2.0cm No fluid about the transplant kidney. No hydronephrosis Renal artery is patent with slightly elevated RI and decreased diastolic flow. Poor perfusion in the intraparenchymal arteries suggesting interstitial fibrosis in a chronic transplant. Correlate with renal function. Increased echogenticity in the renal transplant. Patent Renal vein Kidney length 9.3cm pole to pole Tylor Vergara MD (Electronically Signed) Final Date: 28 August 2022 15:57 S
--- NOTE | 2022-08-28 19:39 | US_ITS ---
WS: [id number] ULTRASOUND RENAL TECHNIQUE: Ultrasound examination of both kidneys. CLINICAL INFORMATION: Renal transplant status COMPARISON: None. FINDINGS: LEFT lower quadrant renal transplant. Atrophic [place] kidneys. RIGHT: Right kidney measures: 5.1 cm x 2.8 cm x 2.3 cm. LEFT: Left kidney not visualized. . Normal visualized aorta. Bladder is decompressed. US/US renal BI* [id number] IMPRESSION: 1. LEFT lower quadrant renal transplant. 2. Atrophic [place] kidneys. 3. Simple cyst RIGHT kidney measuring 1.2 x 1.0 cm
[2022-08-29 14:38] LABS: Cystatin C 3.88 mg/L (0.52-1.10); Estimated GFR (Cystatin C) 11 (> OR = 60)
== END 2022-08-28 16:30 | disposition home or self-care (01) ==
LOC: ER 14:34 → MEDSURG 16:14
PROVIDERS: Hospitalist; Admitting Provider Internal Medicine; Emergency Provider Emergency Medicine; PCP Nurse Practitioner Family; Visit Provider Internal Medicine
DX: I11.0 Hypertensive heart disease with heart failure (principal); I50.9 Heart failure, unspecified; J90 Pleural effusion, not elsewhere classified; J81.1 Chronic pulmonary edema; J43.9 Emphysema, unspecified; Z94.0 Kidney transplant status; E43 Unspecified severe protein-calorie malnutrition; Z68.1 Body mass index [BMI] 19.9 or less, adult; E87.20 Acidosis, unspecified; D64.9 Anemia, unspecified; M89.8X9 Other specified disorders of bone, unspecified site; E87.70 Fluid overload, unspecified
CPT/HCPCS: 12345; 36415; 36416; 71045; 71046; 71250; 76770; 76776; 78014; 80048; 80053; 80158; 81001; 82310; 82436; 82610; 82728; 82962; 83540; 83550; 83605; 83735; 83880; 83970; 84100; 84300; 84443; 84484; 85025; 85378; 86140; 87635; 93005; 93306; 94640; 94760; 96372; 96374; 96375; A9540; A9567; G0378; J1644; J1940; J2930; J7512; Q3014

== ENCOUNTER 2022-09-04 15:08 | Outpatient (CLI) | payer MEDICARE, MEDICAID, SELFPAY ==
[2022-09-04 16:43] LABS: Thyroid Stimulating Hormone 0.98 uIU/mL (0.27-4.20)
== END 2022-09-04 15:09 | disposition home or self-care (01) ==
LOC: LAB 15:12
PROVIDERS: PCP Nurse Practitioner Family; Visit Provider Nurse Practitioner Family
DX: R53.83 Other fatigue (principal)
CPT/HCPCS: 36415; 84443

== ENCOUNTER 2022-09-13 11:51 | Outpatient (CLI) | payer MEDICARE, MEDICAID, SELFPAY ==
[2022-09-13 12:39] LABS: Basophils # 0.1 10^3/uL (0.0-0.1); Basophils % 0.7 %; Eosinophils # 0.5 10^3/uL (0.0-0.8); Eosinophils % 5.4 %; Hematocrit 32.1 % (37.0-47.0); Hemoglobin 10.3 g/dL (11.5-15.3); Lymphocytes # 0.9 10^3/uL (0.8-4.8); Mean Corpuscular HGB Conc 32.1 g/dL (30.0-36.0); Mean Corpuscular Hemoglobin 29.5 pg (28.0-34.0); Mean Platelet Volume 9.1 fL (7.4-10.4); Monocytes # 0.4 10^3/uL (0.2-0.9); Monocytes % 4.7 %; Neutrophils # 6.52 10^3/uL (1.8-7.7); Neutrophils % 77.8 %; Nucleated Red Blood Cells % 0 %; Platelet Count 253 10^3/cmm (130-400); Red Blood Count 3.49 10^6/uL (4.1-5.3); Red Cell Distribution Width 13.3 % (12.1-15.1); White Blood Count 8.4 10^3/uL (4.0-10.0)
[2022-09-13 12:59] LABS: Creatinine Urine, Random 77 mg/dL (28-217); Microalbumin Random Urine 16 ug/dL (0-20)
[2022-09-13 13:03] LABS: Microalbum Creatinine Ratio Ur 208 mg/dL (0-20)
[2022-09-13 13:16] LABS: 25 Hydroxy Vitamin D 41 ng/mL (30-100); Albumin Level 3.5 g/dL (3.5-5.2); Anion Gap 18.8 (5-19); Blood Urea Nitrogen 47 mg/dL (8-23); Calcium 6.3 mg/dL (8.5-10.5); Carbon Dioxide 21 mmol/L (22-29); Chloride 102 mmol/L (98-107); Glucose 83 mg/dL (65-115); Phosphorus 5.8 mg/dL (2.5-4.5); Potassium 4.8 mmol/L (3.5-5.1); Sodium 137 mmol/L (136-145)
[2022-09-16 15:06] LABS: Cyclosporine A Peak 2 Hr Bld 338 mcg/L
== END 2022-09-13 11:52 | disposition home or self-care (01) ==
LOC: LAB 11:59
PROVIDERS: PCP Nurse Practitioner Family; Visit Provider Internal Medicine Nephrology
DX: Z94.0 Kidney transplant status (principal)
CPT/HCPCS: 36415; 80069; 80158; 82044; 82306; 85025

== ENCOUNTER 2022-09-16 15:11 | Emergency (ER) | payer MEDICARE, MEDICAID, SELFPAY ==
[2022-09-16 15:32] VITALS: BP 132/68; PULSE 79; RESP 18; TEMP 36.4; O2SAT 96
[2022-09-16 16:35] VITALS: PULSE 78; O2SAT 98
--- NOTE | 2022-09-16 16:36 | PC.NURSE ---
WHILE WITH PT IN LOBBY PT IS IN NAD.
[2022-09-16 16:45] LABS: Basophils % 0.5 %; Eosinophils # 0.3 10^3/uL (0.0-0.8); Eosinophils % 3.8 %; Hemoglobin 10.3 g/dL (11.5-15.3); Lymphocytes % 23.3 %; Mean Corpuscular HGB Conc 32.2 g/dL (30.0-36.0); Mean Corpuscular Hemoglobin 29.8 pg (28.0-34.0); Mean Corpuscular Volume 92.5 fl (81-99); Mean Platelet Volume 9.8 fL (7.4-10.4); Monocytes # 0.8 10^3/uL (0.2-0.9); Monocytes % 9.3 %; Neutrophils # 5.41 10^3/uL (1.8-7.7); Neutrophils % 62.8 %; Nucleated Red Blood Cells % 0 %; Platelet Count 204 10^3/cmm (130-400); Red Blood Count 3.46 10^6/uL (4.1-5.3); Red Cell Distribution Width 13.4 % (12.1-15.1); White Blood Count 8.6 10^3/uL (4.0-10.0)
[2022-09-16 16:53] LABS: Ionized Calcium 0.8 mmol/L (1.1-1.4)
[2022-09-16 17:15] LABS: Alanine Aminotransferase 11 U/L (0-33); Albumin Level 3.7 g/dL (3.5-5.2); Alkaline Phosphatase 50 U/L (35-105); Anion Gap 17.7 (5-19); Aspartate Amino Transferase 17 U/L (0-32); Blood Urea Nitrogen 43 mg/dL (8-23); Calcium 6.1 mg/dL (8.5-10.5); Carbon Dioxide 24 mmol/L (22-29); Chloride 100 mmol/L (98-107); Globulin 2.7 g/dL (1.3-4.6); Glucose 91 mg/dL (65-115); Magnesium 1.9 mg/dL (1.7-2.3); Osmolality Calculated 294 mOsm/kg (285-295); Potassium 4.7 mmol/L (3.5-5.1); Sodium 137 mmol/L (136-145); Total Bilirubin 0.7 mg/dL (0.15-1.2); Total Protein 6.4 g/dL (6.6-8.7)
--- NOTE | 2022-09-16 19:30 | W.ED.RECABL ---
HPI - Recheck/Abnormal Lab/Rx General: Chief Complaint: Recheck/Abnormal Lab/Rx Stated Complaint: low calcium Time Seen by Provider: 09/16/22 19:23 History of Present Illness: Ms. Anguiano is a 72-year-old lady with complex past medical history including CKD, COPD presenting to the emergency department due to abnormal lab. She reports approximately 1 month history of intermittent tingling in bilateral extremities specifically worse at the distal portions as well as intermittent visual disturbance blurry vision often associated with position change. She previously was started on Lasix for bilateral lower extremity edema though this is not significantly improved. Previous labs demonstrated low calcium and so she presented the emergency department for reevaluation. Intensity symptoms is moderate. Course is intermittent. No other specific changes in health, exacerbating, or alleviating factors identified. MD complaint: abnormal lab Initial visit (ago): day(s) Initial visit for: other Description of abnormal result: Low calcium Review of Systems General: Reports: 10 or more systems reviewed and unremarkable except in HPI and below PFSH ED PFSH: Medical History Emphysema/COPD Heart failure HTN (hypertension) Pleural effusion, bilateral Pulmonary edema Surgical History H/O thyroidectomy History of kidney transplant Family History Other CAD (coronary artery disease) Social History Second hand smoke exposure: Yes Female Reproductive History: Date of last menstrual period: 08/26/22 Physical Exam Const: COMMON NORMALS: alert GENERAL APPEARANCE: cooperative and well developed HENMT: COMMON NORMALS: normocephalic and atraumatic HEAD & SCALP: normocephalic and atraumatic THROAT: posterior oropharynx normal Eye: COMMON NORMALS: conjunctivae normal CONJUNCTIVA: Yes conjunctivae normal SCLERA: sclerae normal Neck/C-Spine: COMMON NORMALS: supple GENERAL: Yes trachea midline Resp: COMMON NORMALS: normal respiratory effort EFFORT & INSPECTION: Yes able to speak in complete sentences Cardio: COMMON NORMALS: regular rate and regular rhythm RATE: regular rate RHYTHM: regular rhythm OTHER: Right AV graft with palpable thrill GI: COMMON NORMALS: Soft to palpation PALPATION: Yes Soft to palpation and No Tenderness to palpation present (GI) PERCUSSION: normal to percussion Extremity: GENERAL: Yes normal exam except as noted and Yes edema (1+ nontender bilateral symmetric lower extremity) Neuro: COMMON NORMALS: moves all extremities SENSORIUM/ORIENTATION: Yes alert and No Orientation impaired Psych: COMMON NORMALS: mental status grossly normal and Normal thought process present THOUGHT PROCESS: Normal thought process present Course Vital Signs: Vital signs: Vital Signs Temperature 97.5 F L 09/16/22 15:32 Pulse Rate 72 09/16/22 22:09 Respiratory Rate 17 09/16/22 22:09 Blood Pressure 136/70 09/16/22 22:09 Pulse Oximetry 97 09/16/22 22:09 Oxygen Delivery Me thod 09/16/22 21:36 MDM - Recheck/Abnormal Lab/Rx Medical Decision Making 72-year-old lady presenting with history of low potassium and concern for low potassium. Exam as above, nonfocal. Labs with no leukocytosis, normocytic anemia likely secondary to renal pathology. Calcium is low with elevated BNP though no significant respiratory distress or oxygen requirement. Chest x-ray with mild evidence of volume overload. CT head negative for acute intracranial pathology. Incidental findings discussed. IV calcium ordered. Patient does have subtle evidence of hypocalcemia however I do not believe that she has significant enough symptoms to require inpatient evaluation at this time. I will plan to increase her calcium supplementation. Strict follow-up precautions and return precautions. The results of ED evaluation were discussed with the patient including prescriptions and/or symptomatic cares (if applicable) including appropriate and responsible use, followup plan, and return precautions. The patient verbalized understanding and felt safe for discharge. Medical Records I reviewed the patient's medical records. Lab Data I reviewed the patient's lab results. 09/16/22 16:20 09/16/22 16:20 Radiology Impressions Chest X-Ray 09/16/22 19:42 IMPRESSION: 1. Small bilateral right greater than left pleural effusions. 2. Cardiomegaly. 3. Hiatal hernia suspected. 4. Right lower lobe atelectasis versus minimal infiltrate, not well visualized, chest CT could better characterize this. Head CT 09/16/22 19:42 IMPRESSION: 1. Negative for intracranial hemorrhage or mass effect. 2. Scattered subtle sclerotic bony lesions in the calvarium, for instance in the left frontal bone measuring 15 mm series 3, image 34, whole body nuclear medicine bone scan could further evaluate these and assess for additional sites of involvement. Laboratory Results WBC 8.6 10^3/uL (4.0-10.0) 09/16/22 16:20 RBC 3.46 10^6/uL (4.1-5.3) L 09/16/22 16:20 Hgb 10.3 g/dL (11.5-15.3) L 09/16/22 16:20 Hct 32.0 % (37.0-47.0) L 09/16/22 16:20 MCV 92.5 fl (81-99) 09/16/22 16:20 MCH 29.8 pg (28.0-34.0) 09/16/22 16:20 MCHC 32.2 g/dL (30.0-36.0) 09/16/22 16:20 RDW 13.4 % (12.1-15.1) 09/16/22 16:20 Plt Count 204 10^3/cmm (130-400) 09/16/22 16:20 MPV 9.8 fL (7.4-10.4) 09/16/22 16:20 Neut % (Auto) 62.8 % 09/16/22 16:20 Lymph % (Auto) 23.3 % 09/16/22 16:20 Pondera % (Auto) 9.3 % 09/16/22 16:20 Eos % (Auto) 3.8 % 09/16/22 16:20 Baso % (Auto) 0.5 % 09/16/22 16:20 Neut # (Auto) 5.41 10^3/uL (1.8-7.7) 09/16/22 16:20 Lymph # (Auto) 2.0 10^3/uL (0.8-4.8) 09/16/22 16:20 Pondera # (Auto) 0.8 10^3/uL (0.2-0.9) 09/16/22 16:20 Eos # (Auto) 0.3 10^3/uL (0.0-0.8) 09/16/22 16:20 Baso # (Auto) 0.0 10^3/uL (0.0-0.1) 09/16/22 16:20 Nucleated RBC % (auto) 0 % 09/16/22 16:20 Nucleated RBCs # 0.0 /100WBC 09/16/22 16:20 Sodium 137 mmol/L (136-145) 09/16/22 16:20 Potassium 4.7 mmol/L (3.5-5.1) 09/16/22 16:20 Chloride 100 mmol/L (98-107) 09/16/22 16:20 Carbon Dioxide 24 mmol/L (22-29) 09/16/22 16:20 Anion Gap 17.7 (5-19) 09/16/22 16:20 BUN 43 mg/dL (8-23) H 09/16/22 16:20 Creatinine 2.3 mg/dL (0.5-0.9) H 09/16/22 16:20 GFR Calculation Not Reportable 09/16/22 16:20 Glucose 91 mg/dL (65-115) 09/16/22 16:20 Calculated Osmolality 294 mOsm/kg (285-295) 09/16/22 16:20 Calcium 6.1 mg/dL (8.5-10.5) L 09/16/22 16:20 Ionized Calcium Adelfo 0.8 mmol/L (1.1-1.4) L 09/16/22 16:20 Magnesium 1.9 mg/dL (1.7-2.3) 09/16/22 16:20 Total Bilirubin 0.7 mg/dL (0.15-1.2) 09/16/22 16:20 AST 17 U/L (0-32) 09/16/22 16:20 ALT 11 U/L (0-33) 09/16/22 16:20 Alkaline Phosphatase 50 U/L (35-105) 09/16/22 16:20 NT-Pro-B Natriuret Pep 49885 pg/mL (0-125) H 09/16/22 16:20 Total Protein 6.4 g/dL (6.6-8.7) L 09/16/22 16:20 Albumin 3.7 g/dL (3.5-5.2) 09/16/22 16:20 Globulin 2.7 g/dL (1.3-4.6) 09/16/22 16:20 Discharge Plan Discharge Patient Disposition: Home Clinical Impression: Hypocalcemia due to chronic kidney disease, Orthostatic dizziness Condition: Stable Prescriptions: No Action prednisone 10 mg tablet 10 mg PO EVERY OTHER DAY atorvastatin 20 mg tablet 20 mg PO DAILY metoprolol tartrate 100 mg tablet 100 mg PO BID cyclosporine modified 25 mg capsule 25 mg PO BID amlodipine 5 mg tablet 5 mg PO BEDTIME calcium carbonate-vitamin D3 600 mg-5 mcg (200 unit) Tablet 1 tab PO DAILY calcium citrate 200 mg (950 mg) Tablet 600 mg PO DAILY PreserVision AREDS-2 250-90-40-1 mg Capsule 1 tab PO DAILY Lasix 40 mg tablet 40 mg PO DAILY Qty: 30 1RF cefpodoxime 200 mg tablet 200 mg PO BID Qty: 20 0RF Rx Instructions: must administer with a meal/food albuterol sulfate 90 mcg/actuation HFA aerosol inhaler 1 puff INHALATION Q6H PRN (Reason: Shortness Of Breath) Qty: 6 0RF Discharge Orders: Discharge ED (Routine); Ordered 09/16/22 Ordered By: Clemente Adams Referrals: Estelle Bridges FNP [Primary Care Provider] - Discharge Diet: Usual diet Discharge Activity: Increase activity as tolerated Activity Restrictions/Additional Instructions: Thank you for visiting the emergency department. You were seen and evaluated for low calcium. Low calcium can lead to tingling however I believe that your other symptoms are more likely related to positional blood pressure changes. As discussed please continue your current calcium supplementation and take an extra 600 mg tablet of calcium citrate Friday, Friday, Friday. 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 I also recommend repeat laboratory studies. Please return to the emergency department for worsening symptoms, mental status changes, syncope, or anything else that you are concerned about a feel needs emergency department evaluation. Coding Level of Care Code ED Web Marketing Intern for Will Collado Exam Comprehensive
--- NOTE | 2022-09-16 19:42 | XRR_ITS ---
PROCEDURE INFORMATION: Exam: XR Chest Exam date and time: 09/16/2022 7:56 PM Age: 72 years old Clinical indication: Pain; Chest pressure; Additional info: L sided chest pain TECHNIQUE: Imaging protocol: Radiologic exam of the chest. Views: 1 view. COMPARISON: CR XR chest 1V portable [id number] 08/28/2022 9:32 AM FINDINGS: Lungs: Right lower lobe atelectasis versus minimal infiltrate, not well visualized, chest CT could better characterize this. Pleural spaces: Small bilateral right greater and left pleural effusions. Heart/Mediastinum: Cardiomegaly. Hiatal hernia suspected. Bones/joints: Unremarkable. XR/XR chest 1V portable [id number] IMPRESSION: 1. Small bilateral right greater than left pleural effusions. 2. Cardiomegaly. 3. Hiatal hernia suspected. 4. Right lower lobe atelectasis versus minimal infiltrate, not well visualized, chest CT could better characterize this.
--- NOTE | 2022-09-16 19:42 | CTR_ITS ---
PROCEDURE INFORMATION: Exam: CT Head Without Contrast Exam date and time: 09/16/2022 8:08 PM Age: 72 years old Clinical indication: Dizziness and weakness, extremity; Patient HX: C/O dizziness with left sided weakness/tingling. ; Additional info: Tingling, visual disturbance TECHNIQUE: Imaging protocol: Computed tomography of the head without contrast. Radiation optimization: All CT scans at this facility use at least one of these dose optimization techniques: automated exposure control; mA and/or kV adjustment per patient size (includes targeted exams where dose is matched to clinical indication); or iterative reconstruction. COMPARISON: No relevant prior studies available. RADIATION DOSE METRICS: Total DLP (mGy-cm): 963.64 FINDINGS: Brain: Moderate diffuse white matter disease likely reflecting chronic microvascular ischemic changes. Cerebral ventricles: No ventriculomegaly. Paranasal sinuses: Visualized sinuses are unremarkable. No fluid levels. Mastoid air cells: Visualized mastoid air cells are well aerated. Bones/joints: Scattered subtle sclerotic bony lesions in the calvarium, for instance in the left frontal bone measuring 15 mm series 3, image 34, whole body nuclear medicine bone scan could further evaluate these and assess for additional sites of involvement. Soft tissues: Unremarkable. CT/CT head wo con* [id number] IMPRESSION: 1. Negative for intracranial hemorrhage or mass effect. 2. Scattered subtle sclerotic bony lesions in the calvarium, for instance in the left frontal bone measuring 15 mm series 3, image 34, whole body nuclear medicine bone scan could further evaluate these and assess for additional sites of involvement.
[2022-09-16] MEDS: calcium gluconate 0.9% NaCL 1 GM/50 ML PREMIX IV (20:19)
[2022-09-16 21:36] VITALS: BP 139/67; BP 139/70; BP 151/75; PULSE 74; PULSE 76; PULSE 85; RESP 15; O2SAT 97
[2022-09-16 22:09] VITALS: BP 136/70; PULSE 72; RESP 17; O2SAT 97
[2022-09-16 22:13] LABS: NT Pro B Type Natriuretic Pept 35108 pg/mL (0-125)
== END 2022-09-16 22:10 | disposition home or self-care (01) ==
PROVIDERS: Emergency Provider Emergency Medicine; PCP Nurse Practitioner Family
DX: E83.51 Hypocalcemia (principal); I13.0 Hypertensive heart and chronic kidney disease with heart failure and stage 1 through stage 4 chronic kidney disease, or unspecified chronic kidney disease; N18.9 Chronic kidney disease, unspecified; I50.9 Heart failure, unspecified; J44.9 Chronic obstructive pulmonary disease, unspecified; Z94.0 Kidney transplant status; Z77.22 Contact with and (suspected) exposure to environmental tobacco smoke (acute) (chronic); I95.1 Orthostatic hypotension
CPT/HCPCS: 36415; 70450; 71045; 80053; 82330; 83735; 83880; 85025; 96365; 99285; J0610

== ENCOUNTER 2022-09-20 13:11 | Outpatient (CLI) | payer MEDICARE, MEDICAID, SELFPAY ==
[2022-09-20 13:57] LABS: Anion Gap 17.5 (5-19); Blood Urea Nitrogen 32 mg/dL (8-23); Calcium 6.2 mg/dL (8.5-10.5); Carbon Dioxide 23 mmol/L (22-29); Chloride 102 mmol/L (98-107); Glucose 100 mg/dL (65-115); Osmolality Calculated 293 mOsm/kg (285-295); Potassium 4.5 mmol/L (3.5-5.1); Sodium 138 mmol/L (136-145)
== END 2022-09-20 13:12 | disposition home or self-care (01) ==
PROVIDERS: PCP Nurse Practitioner Family; Visit Provider Nurse Practitioner Family
DX: N18.4 Chronic kidney disease, stage 4 (severe) (principal)
CPT/HCPCS: 80048

== ENCOUNTER 2022-09-25 14:20 | Outpatient (CLI) | payer MEDICARE, MEDICAID, SELFPAY ==
[2022-09-25 15:03] LABS: Alanine Aminotransferase 12 U/L (0-33); Albumin Level 3.7 g/dL (3.5-5.2); Alkaline Phosphatase 54 U/L (35-105); Anion Gap 17.9 (5-19); Aspartate Amino Transferase 17 U/L (0-32); Blood Urea Nitrogen 26 mg/dL (8-23); Calcium 6.8 mg/dL (8.5-10.5); Carbon Dioxide 22 mmol/L (22-29); Chloride 101 mmol/L (98-107); Globulin 3.2 g/dL (1.3-4.6); Glucose 110 mg/dL (65-115); Magnesium 2.2 mg/dL (1.7-2.3); Osmolality Calculated 287 mOsm/kg (285-295); Potassium 4.9 mmol/L (3.5-5.1); Sodium 136 mmol/L (136-145); Total Bilirubin 0.9 mg/dL (0.15-1.2); Total Protein 6.9 g/dL (6.6-8.7)
[2022-09-25 15:18] LABS: 25 Hydroxy Vitamin D 39 ng/mL (30-100)
[2022-09-25 18:00] LABS: Calcium 6.8 mg/dL (8.5-10.5); Parathyroid Hormone 49.4 pg/mL (15-65)
[2022-09-29 14:14] LABS: Vit D 1,25 (Oh)2, Total 18 pg/mL (18-72); Vit D2 1,25 (Oh)2 8 pg/mL; Vit D3 1,25 (Oh)2 10 pg/mL
== END 2022-09-25 14:21 | disposition home or self-care (01) ==
LOC: LAB 14:23
PROVIDERS: PCP Nurse Practitioner Family; Visit Provider Registered Nurse
DX: N18.4 Chronic kidney disease, stage 4 (severe) (principal)
CPT/HCPCS: 36415; 80053; 82306; 82310; 82652; 83735; 83970

== ENCOUNTER 2022-10-15 12:02 | Outpatient (CLI) | payer MEDICARE, MEDICAID, SELFPAY ==
[2022-10-15 13:12] LABS: Anion Gap 17.7 (5-19); Blood Urea Nitrogen 29 mg/dL (8-23); Calcium 9.3 mg/dL (8.5-10.5); Carbon Dioxide 28 mmol/L (22-29); Chloride 99 mmol/L (98-107); Glucose 92 mg/dL (65-115); Osmolality Calculated 295 mOsm/kg (285-295); Potassium 4.7 mmol/L (3.5-5.1); Sodium 140 mmol/L (136-145)
== END 2022-10-15 12:03 | disposition home or self-care (01) ==
LOC: LAB 12:09
PROVIDERS: PCP Nurse Practitioner Family; Visit Provider Registered Nurse
DX: Z94.0 Kidney transplant status (principal); E55.9 Vitamin D deficiency, unspecified
CPT/HCPCS: 36415; 80048

== ENCOUNTER 2022-12-11 13:04 | Outpatient (CLI) | payer MEDICARE, MEDICAID, SELFPAY ==
[2022-12-11 14:10] LABS: Anion Gap 18.4 (5-19); Blood Urea Nitrogen 61 mg/dL (8-23); Calcium 11.3 mg/dL (8.5-10.5); Carbon Dioxide 24 mmol/L (22-29); Chloride 94 mmol/L (98-107); Glucose 92 mg/dL (65-115); Osmolality Calculated 293 mOsm/kg (285-295); Potassium 3.4 mmol/L (3.5-5.1); Sodium 133 mmol/L (136-145)
== END 2022-12-11 13:05 | disposition home or self-care (01) ==
LOC: LAB 13:07
PROVIDERS: PCP Nurse Practitioner Family; Visit Provider Nurse Practitioner Family
DX: Z94.0 Kidney transplant status (principal); Z79.899 Other long term (current) drug therapy
CPT/HCPCS: 80048

== ENCOUNTER 2022-12-18 12:47 | Outpatient (CLI) | payer MEDICARE, MEDICAID, SELFPAY ==
[2022-12-18 13:35] LABS: Anion Gap 17.4 (5-19); Blood Urea Nitrogen 47 mg/dL (8-23); Calcium 9.1 mg/dL (8.5-10.5); Carbon Dioxide 22 mmol/L (22-29); Chloride 101 mmol/L (98-107); Glucose 131 mg/dL (65-115); Osmolality Calculated 296 mOsm/kg (285-295); Potassium 4.4 mmol/L (3.5-5.1); Sodium 136 mmol/L (136-145)
== END 2022-12-18 12:48 | disposition home or self-care (01) ==
LOC: LAB 12:51
PROVIDERS: PCP Nurse Practitioner Family; Visit Provider Nurse Practitioner Family
DX: Z94.0 Kidney transplant status (principal); Z79.899 Other long term (current) drug therapy
CPT/HCPCS: 80048

== ENCOUNTER 2022-12-25 12:15 | Outpatient (CLI) | payer MEDICARE, MEDICAID, SELFPAY ==
[2022-12-25 13:25] LABS: Blood Urea Nitrogen 37 mg/dL (8-23); Calcium 9.1 mg/dL (8.5-10.5); Carbon Dioxide 22 mmol/L (22-29); Chloride 103 mmol/L (98-107); Glucose 78 mg/dL (65-115); Osmolality Calculated 296 mOsm/kg (285-295); Sodium 139 mmol/L (136-145)
[2022-12-25 13:27] LABS: Anion Gap 18.1 (5-19); Potassium 4.1 mmol/L (3.5-5.1)
== END 2022-12-25 12:16 | disposition home or self-care (01) ==
PROVIDERS: PCP Nurse Practitioner Family; Visit Provider Registered Nurse
DX: N18.4 Chronic kidney disease, stage 4 (severe) (principal)
CPT/HCPCS: 36415; 80048

== ENCOUNTER 2023-01-01 12:05 | Outpatient (CLI) | payer MEDICARE, MEDICAID, SELFPAY ==
[2023-01-01 13:40] LABS: Anion Gap 16.8 (5-19); Blood Urea Nitrogen 30 mg/dL (8-23); Calcium 8.4 mg/dL (8.5-10.5); Carbon Dioxide 22 mmol/L (22-29); Chloride 106 mmol/L (98-107); Glucose 89 mg/dL (65-115); Osmolality Calculated 296 mOsm/kg (285-295); Potassium 4.8 mmol/L (3.5-5.1); Sodium 140 mmol/L (136-145)
== END 2023-01-01 12:06 | disposition home or self-care (01) ==
LOC: LAB 12:11
PROVIDERS: PCP Nurse Practitioner Family; Visit Provider Nurse Practitioner
DX: Z94.0 Kidney transplant status (principal)
CPT/HCPCS: 36415; 80048

== ENCOUNTER 2023-01-29 12:11 | Outpatient (CLI) | payer MEDICARE, MEDICAID, SELFPAY ==
[2023-01-29 13:20] LABS: Basophils # 0.1 10^3/uL (0.0-0.1); Basophils % 0.5 %; Eosinophils # 0.6 10^3/uL (0.0-0.8); Eosinophils % 5.7 %; Hematocrit 30.5 % (37.0-47.0); Hemoglobin 9.9 g/dL (11.5-15.3); Lymphocytes # 1.5 10^3/uL (0.8-4.8); Lymphocytes % 13.9 %; Mean Corpuscular HGB Conc 32.5 g/dL (30.0-36.0); Mean Corpuscular Hemoglobin 29.2 pg (28.0-34.0); Mean Platelet Volume 9.1 fL (7.4-10.4); Monocytes # 0.4 10^3/uL (0.2-0.9); Neutrophils # 8.04 10^3/uL (1.8-7.7); Neutrophils % 75.5 %; Nucleated Red Blood Cells % 0 %; Platelet Count 220 10^3/cmm (130-400); Red Blood Count 3.39 10^6/uL (4.1-5.3); Red Cell Distribution Width 13.8 % (12.1-15.1); White Blood Count 10.7 10^3/uL (4.0-10.0)
[2023-01-29 13:47] LABS: Creatinine Urine, Random 63 mg/dL (28-217); Microalbumin Random Urine 18 ug/dL (0-20)
[2023-01-29 13:48] LABS: Microalbum Creatinine Ratio Ur 286 mg/dL (0-20)
[2023-01-29 14:00] LABS: 25 Hydroxy Vitamin D 35 ng/mL (30-100); Anion Gap 17.5 (5-19); Blood Urea Nitrogen 33 mg/dL (8-23); Calcium 7.5 mg/dL (8.5-10.5); Carbon Dioxide 21 mmol/L (22-29); Chloride 102 mmol/L (98-107); Glucose 86 mg/dL (65-115); Phosphorus 4.2 mg/dL (2.5-4.5); Potassium 4.5 mmol/L (3.5-5.1); Sodium 136 mmol/L (136-145)
[2023-01-30 11:39] LABS: Cyclosporine A Trough Level 223 mcg/L
== END 2023-01-29 12:12 | disposition home or self-care (01) ==
PROVIDERS: PCP Nurse Practitioner Family; Visit Provider Family Medicine
DX: Z94.0 Kidney transplant status (principal)
CPT/HCPCS: 36415; 80069; 80158; 82044; 82306; 85025

== ENCOUNTER 2023-06-13 14:56 | Outpatient (CLI) | payer MEDICARE, MEDICAID, SELFPAY ==
--- NOTE | 2023-06-13 15:05 | XR_ITS ---
WS: [id number] Exam: XR acute abdomen series [id number] Date/Time of Exam: 06/13/2023 3:09 PM Reason For Exam: UNSPECIFIED ABDOMINAL PAIN AP chest radiograph. Comparison 09/16/2022. The lungs are hyperinflated. Marked cardiac enlargement. Small RIGHT basal pleural effusion. The medi astinum is normal in contour. Levoscoliosis of the thoracic spine. Several old bilateral rib fracture s. IMPRESSION: 1. Pulmonary hyperinflation suggesting obstructive lung disease. 2. Cardiac enlargement. 3. Small RIGHT basal pleural effusion. Flat and erect abdomen. No bowel obstruction or free air. Calcifications superimpose both kidneys and may represent renal marcus culi. No sign of organ enlargement. Dextroscoliosis of the lumbar spine. Stable appearing bone lesion s are identified in the proximal femurs and also of the RIGHT iliac crest. Surgical clips in the RIGH T inguinal region. IMPRESSION: 1. No acute abdominal process identified. 2. Additional nonacute findings as detailed above.
== END 2023-06-13 14:57 | disposition home or self-care (01) ==
LOC: RAD 15:02
PROVIDERS: PCP Nurse Practitioner Family; Visit Provider Nurse Practitioner Family
DX: R10.9 Unspecified abdominal pain (principal)
CPT/HCPCS: 74022

== ENCOUNTER 2023-07-09 12:17 | Outpatient (CLI) | payer MEDICARE, MEDICAID, SELFPAY ==
--- NOTE | 2023-07-09 12:27 | XRR_ITS ---
PROCEDURE INFORMATION: Exam: XR Chest Exam date and time: 07/09/2023 12:30 PM Age: 73 years old Clinical indication: Condition or disease; Lung condition and disease; Pleural effusion; Other: Not specified; Additional info: Pleural effusion, pa/lat oblique right TECHNIQUE: Imaging protocol: Radiologic exam of the chest. Views: 3 views. COMPARISON: CR XR chest 1V portable [id number] 09/16/2022 7:56 PM FINDINGS: Lungs: Unchanged COPD. No superimposed acute pulmonary abnormality. Pleural spaces: Unremarkable. No pleural effusion. No pneumothorax. Heart/Mediastinum: Unremarkable. No cardiomegaly. Bones/joints: Moderate scoliosis and kyphosis. Mild and moderate multilevel thoracic spondylosis. XR/XR chest 3V [id number] IMPRESSION: COPD without superimposed acute disease.
== END 2023-07-09 12:18 | disposition home or self-care (01) ==
PROVIDERS: PCP Nurse Practitioner Family; Visit Provider Nurse Practitioner Family
DX: J90 Pleural effusion, not elsewhere classified (principal); J44.9 Chronic obstructive pulmonary disease, unspecified
CPT/HCPCS: 71047

== ENCOUNTER 2023-07-28 10:42 | Outpatient (CLI) | payer MEDICARE, MEDICAID, SELFPAY ==
--- NOTE | 2023-07-28 10:50 | USCV_ITS ---
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: CT [place]am [place] [facility] [place] Indication: cardiomegaly, edema BP: 145 / 85 HR: 58 Rhythm: Sinus Technical Quality: Adequate MEASUREMENTS (Male / Female) Normal Values 2D ECHO LV Chamber Size 4.7 cm RV Chamber Size 3.6 cm LVOT Diameter 2.0 cm LV Ejection Fraction MOD 2C 60.4 % LV Ejection Fraction 2C AL 58.6 % LA Diameter 4.1 cm LA Width 4.4 cm LA Height 5.0 cm RA Width 4.3 cm RA Height 4.9 cm IVC Diameter 1.6 cm M-MODE Aortic Annulus Diameter 3.6 cm LA Ao Ratio MM 1.1 MV E Point Septal Separation 0.9 cm DOPPLER AV Peak Velocity 174.0 cm/s LVOT Peak Velocity 132.0 cm/s AV Area Cont Eq vti 2.9 cm squared AV Area Cont Eq pk 2.5 cm squared MV Area PHT 2.5 cm squared Mitral E to A Ratio 0.5 MV E' Velocity 37.5 cm/s Mitral E to MV E' Ratio 7.6 Mitral E to LV E' Lateral Ratio 8.4 Mitral E to LV E' Septal Ratio 6.9 TR Peak Velocity 144.7 cm/s TR Peak Gradient 8.4 mmHg TV Peak E Velocity 62.0 cm/s Right Atrial Pressure 3.0 mmHg Pulmonary Artery Systolic Pressu 11.4 mmHg PV Peak Velocity 119.0 cm/s FINDINGS Left Ventricle Normal left ventricular size, systolic function and increased wall thickness, with no regional wall motion abnormalities. Left ventricular ejection fraction is estimated at 60 %. Abnormal septal motion consistent with conduction abnormality. Grade I diastolic dysfunction (abnormal relaxation filling pattern), normal to mildly elevated filling pressures. Right Ventricle Normal right ventricular size and systolic function. Right ventricular systolic pressure 11.4 mmHg. Right Atrium Normal right atrial size. Left Atrium Moderately increased left atrial size. Mitral Valve Mild mitral annular calcification. Mildly thickened mitral valve. No mitral valve stenosis. Mild-moderate mitral valve regurgitation. Aortic Valve Mildly thickened trileaflet aortic valve. No aortic valve stenosis. No aortic valve regurgitation. Tricuspid Valve Structurally normal tricuspid valve. No tricuspid valve stenosis. Trace tricuspid valve regurgitation. Pulmonic Valve Pulmonic valve not well visualized. No pulmonary valve stenosis. Trace pulmonary valve regurgitation. Pericardium Trivial pericardial effusion. Aorta Normal size aortic root and proximal ascending aorta. IVC Normal IVC dimension with >50% respiratory change of the inferior vena cava. CONCLUSIONS 1. Normal left ventricular size, systolic function and increased wall thickness, with no regional wall motion abnormalities. Left ventricular ejection fraction is estimated at 60 %. Abnormal septal motion consistent with conduction abnormality. Grade I diastolic dysfunction (abnormal relaxation filling pattern), normal to mildly elevated filling pressures. 2. Mild-moderate mitral valve regurgitation. 3. When compared to study dated 08/27/22 pericardial effusion seems to have decreased in size. Kirstin Phillips MD (Electronically Signed) Final Date: 30 July 2023 16:52 S
== END 2023-07-28 10:43 | disposition home or self-care (01) ==
LOC: RAD 10:43
PROVIDERS: PCP Nurse Practitioner Family; Visit Provider Nurse Practitioner Family
DX: I51.7 Cardiomegaly (principal); R60.9 Edema, unspecified; R93.1 Abnormal findings on diagnostic imaging of heart and coronary circulation; I51.89 Other ill-defined heart diseases; I34.0 Nonrheumatic mitral (valve) insufficiency
CPT/HCPCS: 93306

== ENCOUNTER 2023-08-20 12:14 | Outpatient (CLI) | payer MEDICARE, MEDICAID, SELFPAY ==
[2023-08-20 12:38] LABS: Basophils # 0.1 10^3/uL (0.0-0.1); Basophils % 0.5 %; Eosinophils # 0.5 10^3/uL (0.0-0.8); Eosinophils % 4.8 %; Hematocrit 28.8 % (36-47); Lymphocytes # 2.8 10^3/uL (0.8-4.8); Lymphocytes % 29.6 %; Mean Corpuscular Hemoglobin 29.7 pg (27-33); Mean Platelet Volume 9.1 fL (7.4-10.4); Monocytes # 1.1 10^3/uL (0.2-0.9); Monocytes % 11.2 %; Neutrophils # 5.01 10^3/uL (1.8-7.7); Neutrophils % 53.7 %; Nucleated Red Blood Cells % 0 %; Platelet Count 207 10^3/cmm (157-399); Red Cell Distribution Width 13.3 % (12.1-15.1); White Blood Count 9.34 10^3/uL (3.29-11.43)
[2023-08-20 13:23] LABS: Creatinine Urine, Random 88 mg/dL (28-217); Microalbum Creatinine Ratio Ur 102 mg/dL (0-20); Microalbumin Random Urine 9 ug/dL (0-20)
[2023-08-20 13:29] LABS: 25 Hydroxy Vitamin D 43 ng/mL (30-100); Ferritin 179 ng/mL (15-150); Iron 53 ug/dL (37-145); Magnesium 1.6 mg/dL (1.7-2.3); Percent Saturation 26.1 % (20-50); Total Iron Binding Capacity 203 mcg/dl; Unsaturated Iron Binding 150 ug/dL (112-347)
[2023-08-20 13:31] LABS: Calcium 9.2 mg/dL (8.5-10.5); Parathyroid Hormone 7.2 pg/mL (15-65)
[2023-08-20 16:53] LABS: Alanine Aminotransferase 8 U/L (0-33); Albumin Level 3.8 g/dL (3.5-5.2); Alkaline Phosphatase 36 U/L (35-105); Anion Gap 18.1 (5-19); Aspartate Amino Transferase 13 U/L (0-32); Blood Urea Nitrogen 36 mg/dL (8-23); Calcium 9.4 mg/dL (8.5-10.5); Carbon Dioxide 22 mmol/L (22-29); Chloride 104 mmol/L (98-107); Globulin 2.3 g/dL (1.3-4.6); Glucose 82 mg/dL (65-115); Osmolality Calculated 299 mOsm/kg (285-295); Potassium 3.1 mmol/L (3.5-5.1); Sodium 141 mmol/L (136-145); Total Bilirubin 0.7 mg/dL (0.15-1.2); Total Protein 6.1 g/dL (6.6-8.7)
[2023-08-22 14:35] LABS: Cyclosporine A Trough Level 326 mcg/L
== END 2023-08-20 12:15 | disposition home or self-care (01) ==
PROVIDERS: PCP Nurse Practitioner Family; Visit Provider Registered Nurse
DX: N18.4 Chronic kidney disease, stage 4 (severe) (principal); E55.9 Vitamin D deficiency, unspecified; Z94.0 Kidney transplant status; N25.81 Secondary hyperparathyroidism of renal origin
CPT/HCPCS: 36415; 80053; 80158; 82044; 82306; 82310; 82728; 83540; 83550; 83735; 83970; 85025

== ENCOUNTER 2023-08-22 11:26 | Outpatient (CLI) | payer MEDICARE, MEDICAID, SELFPAY ==
[2023-08-22 12:02] LABS: Albumin Level 3.8 g/dL (3.5-5.2); Anion Gap 16.2 (5-19); Blood Urea Nitrogen 42 mg/dL (8-23); Calcium 9.6 mg/dL (8.5-10.5); Carbon Dioxide 23 mmol/L (22-29); Chloride 104 mmol/L (98-107); Glucose 87 mg/dL (65-115); Phosphorus 4.6 mg/dL (2.5-4.5); Potassium 3.2 mmol/L (3.5-5.1); Sodium 140 mmol/L (136-145)
== END 2023-08-22 11:27 | disposition home or self-care (01) ==
PROVIDERS: PCP Nurse Practitioner Family; Visit Provider Registered Nurse
DX: N18.4 Chronic kidney disease, stage 4 (severe) (principal); E87.6 Hypokalemia
CPT/HCPCS: 36415; 80069

== ENCOUNTER 2023-09-11 12:18 | Outpatient (CLI) | payer MEDICARE, MEDICAID, SELFPAY ==
[2023-09-11 13:09] LABS: Albumin Level 3.9 g/dL (3.5-5.2); Anion Gap 17.2 (5-19); Blood Urea Nitrogen 33 mg/dL (8-23); Calcium 9.9 mg/dL (8.5-10.5); Carbon Dioxide 23 mmol/L (22-29); Chloride 103 mmol/L (98-107); Glucose 94 mg/dL (65-115); Phosphorus 4.9 mg/dL (2.5-4.5); Potassium 4.2 mmol/L (3.5-5.1); Sodium 139 mmol/L (136-145)
== END 2023-09-11 12:19 | disposition home or self-care (01) ==
LOC: LAB 12:19
PROVIDERS: PCP Nurse Practitioner Family; Visit Provider Internal Medicine Nephrology
DX: N18.4 Chronic kidney disease, stage 4 (severe) (principal)
CPT/HCPCS: 36415; 80069

== ENCOUNTER → 2023-09-30 13:19 | Outpatient (BNVA) | payer MEDICARE, MEDICAID, SELFPAY | PROVIDERS: PCP Nurse Practitioner Family; Referring Provider Nurse Practitioner Family; Visit Provider Internal Medicine Cardiovascular Disease | DX: I44.7 Left bundle-branch block, unspecified (principal); J43.9 Emphysema, unspecified; I13.0 Hypertensive heart and chronic kidney disease with heart failure and stage 1 through stage 4 chronic kidney disease, or unspecified chronic kidney disease; I50.9 Heart failure, unspecified; N18.9 Chronic kidney disease, unspecified; Z94.0 Kidney transplant status | CPT/HCPCS: 99204 ==

== ENCOUNTER 2023-10-03 12:16 | Outpatient (CLI) | payer MEDICARE, MEDICAID, SELFPAY ==
[2023-10-03 12:53] LABS: Basophils # 0.1 10^3/uL (0.0-0.1); Basophils % 0.6 %; Eosinophils # 0.6 10^3/uL (0.0-0.8); Eosinophils % 6.6 %; Hematocrit 30.3 % (36-47); Lymphocytes # 2.8 10^3/uL (0.8-4.8); Lymphocytes % 33.1 %; Mean Corpuscular HGB Conc 32.3 g/dL (30-55); Mean Corpuscular Hemoglobin 29.9 pg (27-33); Mean Corpuscular Volume 92.4 fl (85-98); Monocytes # 0.9 10^3/uL (0.2-0.9); Monocytes % 10.4 %; Neutrophils # 4.09 10^3/uL (1.8-7.7); Neutrophils % 49.1 %; Nucleated Red Blood Cells % 0 %; Platelet Count 188 10^3/cmm (157-399); Red Blood Count 3.28 10^6/uL (3.85-5.65); Red Cell Distribution Width 12.9 % (12.1-15.1); White Blood Count 8.34 10^3/uL (3.29-11.43)
[2023-10-03 13:17] LABS: Anion Gap 15.6 (5-19); Blood Urea Nitrogen 31 mg/dL (8-23); Carbon Dioxide 23 mmol/L (22-29); Chloride 105 mmol/L (98-107); Ferritin 202 ng/mL (15-150); Glucose 87 mg/dL (65-115); Iron 85 ug/dL (37-145); Percent Saturation 37.9 % (20-50); Phosphorus 3.4 mg/dL (2.5-4.5); Potassium 4.6 mmol/L (3.5-5.1); Sodium 139 mmol/L (136-145); Total Iron Binding Capacity 224 mcg/dl; Unsaturated Iron Binding 139 ug/dL (112-347)
[2023-10-07 13:45] LABS: Cyclosporine A Trough Level 296 mcg/L
== END 2023-10-03 12:17 | disposition home or self-care (01) ==
LOC: LAB 12:20
PROVIDERS: PCP Nurse Practitioner Family; Visit Provider Internal Medicine Nephrology
DX: N18.4 Chronic kidney disease, stage 4 (severe) (principal); D63.1 Anemia in chronic kidney disease; Z94.0 Kidney transplant status
CPT/HCPCS: 36415; 80069; 80158; 82728; 83540; 83550; 85025

== ENCOUNTER 2023-12-22 12:22 | Outpatient (CLI) | payer MEDICARE, MEDICAID, SELFPAY ==
--- NOTE | 2023-12-22 12:27 | XRR_ITS ---
PROCEDURE INFORMATION: Exam: XR Left Wrist Exam date and time: 12/22/2023 1:22 PM Age: 73 years old Clinical indication: Patient HX: 2 month pain in the left wrist from taking toilet paper off the roll; Additional info: Pain of left thumb/wrist pain TECHNIQUE: Imaging protocol: Radiologic exam of the left wrist. Views: 3 or more views. COMPARISON: No relevant prior studies available. FINDINGS: Bones/joints: Mild-moderate arthritis left 1st carpometacarpal articulation. Otherwise, unremarkable left wrist. Soft tissues: Otherwise, unremarkable. Vasculature: Arterial calcification. XR/XR wrist LT min 3V* [id number] IMPRESSION: Mild-moderate arthritis left 1st carpometacarpal articulation. Otherwise, unremarkable left wrist.
[2023-12-22 14:05] LABS: Alanine Aminotransferase 8 U/L (0-33); Albumin Level 3.6 g/dL (3.5-5.2); Alkaline Phosphatase 39 U/L (35-105); Aspartate Amino Transferase 15 U/L (0-32); Blood Urea Nitrogen 47 mg/dL (8-23); Calcium 10.6 mg/dL (8.5-10.5); Carbon Dioxide 21 mmol/L (22-29); Chloride 102 mmol/L (98-107); Chol HDL Ratio 3.95 mg/dL (0.0-4.40); Cholesterol 241 mg/dL (0-200); Globulin 2.9 g/dL (1.3-4.6); Glucose 85 mg/dL (65-115); HDL Cholesterol 61 mg/dL (60-100); LDL Cholesterol Calculated 159 mg/dL (50-129); LDL HDL Ratio 2.61 RATIO (0.00-3.22); Osmolality Calculated 298 mOsm/kg (285-295); Sodium 138 mmol/L (136-145); Total Bilirubin 0.8 mg/dL (0.15-1.2); Total Protein 6.5 g/dL (6.6-8.7); Triglycerides 107 mg/dL (0-150)
== END 2023-12-22 12:23 | disposition home or self-care (01) ==
LOC: LAB 12:25
PROVIDERS: PCP Nurse Practitioner Family; Visit Provider Nurse Practitioner Family
DX: M18.12 Unilateral primary osteoarthritis of first carpometacarpal joint, left hand (principal); E78.5 Hyperlipidemia, unspecified; I12.9 Hypertensive chronic kidney disease with stage 1 through stage 4 chronic kidney disease, or unspecified chronic kidney disease; N18.4 Chronic kidney disease, stage 4 (severe)
CPT/HCPCS: 36415; 73110; 80053; 80061

== ENCOUNTER 2024-01-22 11:44 | Outpatient (CLI) | payer MEDICARE, MEDICAID, SELFPAY ==
--- NOTE | 2024-01-22 12:02 | XR_ITS ---
WS: [id number] DEXA (DUAL ENERGY X-RAY ABSORPTIOMETRY) Bone mineral density was performed using a [employer] machine. HISTORY: KIDNEY TRANSPLANT STATUS COMPARISON: 01/06/2019 Lumbar spine BMD (L1-L4): 0.810 g/cm2 T score: -3.1 Z score: -0.5 Total hip BMD: Left: 0.857 g/cm2. T score: -1.2 Z score: 1.1 Right: 0.863 g/cm2. T score: -1.1 Z score: 1.2 10 year probability of a major osteoporotic fracture is 7.6%. Compared to the prior study from 01/06/2019. Lumbar spine bone mineral density has increased by 3.8%. Bilateral hips bone mineral density has decreased by 7.2%. IMPRESSION: OSTEOPOROSIS based upon the WHO classification for females. Significant increase in bone mineral dens ity within the lumbar spine since the prior study. Significant decrease in bone mineral density withi n the hips since the prior study.
[2024-01-22 12:13] LABS: Basophils # 0.1 10^3/uL (0.0-0.1); Basophils % 0.7 %; Eosinophils # 0.7 10^3/uL (0.0-0.8); Eosinophils % 8.6 %; Hematocrit 30.7 % (36-47); Lymphocytes # 1.3 10^3/uL (0.8-4.8); Lymphocytes % 15.3 %; Mean Corpuscular HGB Conc 32.9 g/dL (30-55); Mean Corpuscular Hemoglobin 30.4 pg (27-33); Mean Corpuscular Volume 92.5 fl (85-98); Mean Platelet Volume 9.1 fL (7.4-10.4); Monocytes # 0.4 10^3/uL (0.2-0.9); Monocytes % 4.9 %; Neutrophils # 5.84 10^3/uL (1.8-7.7); Neutrophils % 70.1 %; Nucleated Red Blood Cells % 0 %; Platelet Count 223 10^3/cmm (157-399); Red Blood Count 3.32 10^6/uL (3.85-5.65); Red Cell Distribution Width 13.3 % (12.1-15.1); White Blood Count 8.34 10^3/uL (3.29-11.43)
[2024-01-22 12:37] LABS: Alanine Aminotransferase 8 U/L (0-33); Albumin Level 3.7 g/dL (3.5-5.2); Alkaline Phosphatase 40 U/L (35-105); Anion Gap 19.2 (5-19); Aspartate Amino Transferase 13 U/L (0-32); Blood Urea Nitrogen 31 mg/dL (8-23); Calcium 6.6 mg/dL (8.5-10.5); Carbon Dioxide 18 mmol/L (22-29); Chloride 110 mmol/L (98-107); Ferritin 252 ng/mL (15-150); Globulin 2.3 g/dL (1.3-4.6); Glucose 86 mg/dL (65-115); Iron 56 ug/dL (37-145); Magnesium 1.7 mg/dL (1.7-2.3); Osmolality Calculated 302 mOsm/kg (285-295); Percent Saturation 27.1 % (20-50); Potassium 4.2 mmol/L (3.5-5.1); Sodium 143 mmol/L (136-145); Total Bilirubin 0.7 mg/dL (0.15-1.2); Total Iron Binding Capacity 206 mcg/dl; Unsaturated Iron Binding 150 ug/dL (112-347)
[2024-01-22 12:47] LABS: Calcium 6.8 mg/dL (8.5-10.5)
[2024-01-22 12:53] LABS: 25 Hydroxy Vitamin D 39 ng/mL (30-100)
[2024-01-22 12:55] LABS: Parathyroid Hormone 57.5 pg/mL (15-65)
[2024-01-23 13:44] LABS: Cyclosporine A Peak 2 Hr Bld 471 mcg/L
== END 2024-01-22 11:45 | disposition home or self-care (01) ==
LOC: RAD 11:45
PROVIDERS: PCP Nurse Practitioner Family; Visit Provider Nurse Practitioner Family
DX: Z13.820 Encounter for screening for osteoporosis (principal); M81.0 Age-related osteoporosis without current pathological fracture; N18.4 Chronic kidney disease, stage 4 (severe); Z78.0 Asymptomatic menopausal state; Z94.0 Kidney transplant status
CPT/HCPCS: 36415; 77080; 80053; 80158; 82306; 82310; 82728; 83540; 83550; 83735; 83970; 85025

== ENCOUNTER → 2024-02-17 12:22 | Outpatient (BNVA) | payer MEDICARE, MEDICAID, SELFPAY | PROVIDERS: PCP Nurse Practitioner Family; Visit Provider Nurse Practitioner Family | DX: L82.1 Other seborrheic keratosis (principal); L57.0 Actinic keratosis; L82.0 Inflamed seborrheic keratosis; Z92.25 Personal history of immunosuppression therapy | CPT/HCPCS: 17000; 17110; 99203 ==

== ENCOUNTER 2024-05-25 11:56 | Outpatient (CLI) | payer MEDICARE, MEDICAID, SELFPAY ==
[2024-05-25 12:41] LABS: Basophils # 0.1 10^3/uL (0.0-0.1); Basophils % 0.7 %; Eosinophils # 0.7 10^3/uL (0.0-0.8); Eosinophils % 7.5 %; Hematocrit 30.9 % (36-47); Lymphocytes # 1.4 10^3/uL (0.8-4.8); Lymphocytes % 14.9 %; Mean Corpuscular Hemoglobin 30.4 pg (27-33); Mean Corpuscular Volume 92.2 fl (85-98); Mean Platelet Volume 9.3 fL (7.4-10.4); Monocytes # 0.5 10^3/uL (0.2-0.9); Monocytes % 5.1 %; Neutrophils # 6.87 10^3/uL (1.8-7.7); Neutrophils % 71.5 %; Nucleated Red Blood Cells % 0 %; Platelet Count 224 10^3/cmm (157-399); Red Blood Count 3.35 10^6/uL (3.85-5.65); Red Cell Distribution Width 14.4 % (12.1-15.1); White Blood Count 9.61 10^3/uL (3.29-11.43)
[2024-05-25 13:06] LABS: Alanine Aminotransferase 8 U/L (0-33); Albumin Level 3.9 g/dL (3.5-5.2); Alkaline Phosphatase 35 U/L (35-105); Anion Gap 17.9 (5-19); Aspartate Amino Transferase 12 U/L (0-32); Blood Urea Nitrogen 51 mg/dL (8-23); Calcium 8.8 mg/dL (8.5-10.5); Carbon Dioxide 19 mmol/L (22-29); Chloride 106 mmol/L (98-107); Ferritin 248 ng/mL (15-150); Globulin 2.7 g/dL (1.3-4.6); Glucose 90 mg/dL (65-115); Iron 72 ug/dL (37-145); Osmolality Calculated 299 mOsm/kg (285-295); Percent Saturation 36.9 % (20-50); Potassium 4.9 mmol/L (3.5-5.1); Sodium 138 mmol/L (136-145); Total Bilirubin 0.6 mg/dL (0.15-1.2); Total Iron Binding Capacity 195 mcg/dl; Total Protein 6.6 g/dL (6.6-8.7); Unsaturated Iron Binding 123 ug/dL (112-347)
[2024-05-26 13:09] LABS: Cyclosporine A Trough Level 338 mcg/L
== END 2024-05-25 11:57 | disposition home or self-care (01) ==
PROVIDERS: PCP Nurse Practitioner Family; Visit Provider Internal Medicine Nephrology
DX: D63.1 Anemia in chronic kidney disease (principal); N18.4 Chronic kidney disease, stage 4 (severe)
CPT/HCPCS: 36415; 80053; 80158; 82728; 83540; 83550; 83735; 85025

== ENCOUNTER → 2024-07-08 14:10 | Outpatient (BNVA) | payer MEDICARE, MEDICAID, SELFPAY | PROVIDERS: PCP Nurse Practitioner Family; Visit Provider Nurse Practitioner Family | DX: L82.0 Inflamed seborrheic keratosis (principal); L82.1 Other seborrheic keratosis; L57.8 Other skin changes due to chronic exposure to nonionizing radiation | CPT/HCPCS: 17110; 99213 ==

== ENCOUNTER 2024-08-31 11:40 | Outpatient (CLI) | payer MEDICARE, MEDICAID, SELFPAY ==
[2024-08-31 12:42] LABS: Basophils # 0.1 10^3/uL (0.0-0.1); Basophils % 0.8 %; Eosinophils # 0.7 10^3/uL (0.0-0.8); Eosinophils % 7.7 %; Hematocrit 30.6 % (36-47); Lymphocytes # 1.3 10^3/uL (0.8-4.8); Lymphocytes % 14.5 %; Mean Corpuscular Hemoglobin 31.2 pg (27-33); Mean Corpuscular Volume 94.4 fl (85-98); Mean Platelet Volume 9.2 fL (7.4-10.4); Monocytes # 0.4 10^3/uL (0.2-0.9); Monocytes % 4.8 %; Neutrophils # 6.18 10^3/uL (1.8-7.7); Neutrophils % 71.9 %; Nucleated Red Blood Cells % 0 %; Platelet Count 255 10^3/cmm (157-399); Red Blood Count 3.24 10^6/uL (3.85-5.65); Red Cell Distribution Width 13.2 % (12.1-15.1)
[2024-08-31 12:53] LABS: Creatinine Urine, Random 68 mg/dL (28-217); Microalbumin Random Urine 8 ug/dL (0-20)
[2024-08-31 12:56] LABS: Microalbum Creatinine Ratio Ur 118 mg/dL (0-20)
[2024-08-31 13:16] LABS: Parathyroid Hormone 47.4 pg/mL (15-65)
[2024-08-31 13:26] LABS: 25 Hydroxy Vitamin D 32 ng/mL (30-100); Alanine Aminotransferase 8 U/L (0-33); Albumin Level 3.6 g/dL (3.5-5.2); Alkaline Phosphatase 46 U/L (35-105); Anion Gap 17.5 (5-19); Aspartate Amino Transferase 13 U/L (0-32); Blood Urea Nitrogen 32 mg/dL (8-23); Calcium 8.1 mg/dL (8.5-10.5); Carbon Dioxide 23 mmol/L (22-29); Chloride 106 mmol/L (98-107); Globulin 3.1 g/dL (1.3-4.6); Glucose 88 mg/dL (65-115); Osmolality Calculated 300 mOsm/kg (285-295); Phosphorus 4.1 mg/dL (2.5-4.5); Potassium 4.5 mmol/L (3.5-5.1); Sodium 142 mmol/L (136-145); Total Bilirubin 0.6 mg/dL (0.15-1.2); Total Protein 6.7 g/dL (6.6-8.7)
[2024-09-01 14:35] LABS: Cyclosporine A Trough Level 344 mcg/L
== END 2024-08-31 11:41 | disposition home or self-care (01) ==
LOC: LAB 11:43
PROVIDERS: Absent Provider Registered Nurse; PCP Nurse Practitioner Family; Visit Provider Internal Medicine Nephrology
DX: N18.4 Chronic kidney disease, stage 4 (severe) (principal); E55.9 Vitamin D deficiency, unspecified; N25.81 Secondary hyperparathyroidism of renal origin; D63.1 Anemia in chronic kidney disease; Z94.0 Kidney transplant status
CPT/HCPCS: 36415; 80053; 80069; 80158; 82044; 82306; 82310; 83735; 83970; 85025

== ENCOUNTER 2024-12-14 11:07 | Outpatient (CLI) | payer MEDICARE, MEDICAID, SELFPAY ==
[2024-12-14 11:55] LABS: Basophils # 0.1 10^3/uL (0.0-0.1); Basophils % 0.4 %; Eosinophils # 0.4 10^3/uL (0.0-0.8); Lymphocytes # 2.8 10^3/uL (0.8-4.8); Lymphocytes % 20.8 %; Mean Corpuscular HGB Conc 33.3 g/dL (30-55); Mean Corpuscular Volume 92.9 fl (85-98); Mean Platelet Volume 9.1 fL (7.4-10.4); Monocytes # 1.3 10^3/uL (0.2-0.9); Monocytes % 9.8 %; Neutrophils # 8.83 10^3/uL (1.8-7.7); Neutrophils % 65.6 %; Nucleated Red Blood Cells % 0 %; Platelet Count 219 10^3/cmm (157-399); Red Blood Count 3.23 10^6/uL (3.85-5.65); Red Cell Distribution Width 13.4 % (12.1-15.1); White Blood Count 13.47 10^3/uL (3.29-11.43)
[2024-12-14 12:09] LABS: Albumin Level 3.9 g/dL (3.5-5.2); Anion Gap 18.1 (5-19); Blood Urea Nitrogen 43 mg/dL (8-23); Calcium 9.6 mg/dL (8.5-10.5); Carbon Dioxide 25 mmol/L (22-29); Chloride 98 mmol/L (98-107); Glucose 83 mg/dL (65-115); Phosphorus 4.5 mg/dL (2.5-4.5); Potassium 4.1 mmol/L (3.5-5.1); Sodium 137 mmol/L (136-145)
[2024-12-14 12:10] LABS: Creatinine Urine, Random 70 mg/dL (28-217); Microalbumin Random Urine 5 ug/dL (0-20)
[2024-12-14 12:11] LABS: Microalbum Creatinine Ratio Ur 71 mg/dL (0-20)
== END 2024-12-14 11:08 | disposition home or self-care (01) ==
PROVIDERS: PCP Nurse Practitioner Family; Visit Provider Registered Nurse
DX: N18.4 Chronic kidney disease, stage 4 (severe) (principal); Z94.0 Kidney transplant status
CPT/HCPCS: 80069; 80158; 82044; 85025

== ENCOUNTER 2024-12-22 12:16 | Outpatient (CLI) | payer MEDICARE, MEDICAID, SELFPAY ==
[2024-12-22 12:45] LABS: Basophils # 0.1 10^3/uL (0.0-0.1); Basophils % 0.5 %; Eosinophils # 0.4 10^3/uL (0.0-0.8); Eosinophils % 4.3 %; Hematocrit 31.2 % (36-47); Lymphocytes # 2.5 10^3/uL (0.8-4.8); Mean Corpuscular HGB Conc 32.1 g/dL (30-55); Mean Corpuscular Hemoglobin 30.3 pg (27-33); Mean Corpuscular Volume 94.5 fl (85-98); Monocytes # 0.9 10^3/uL (0.2-0.9); Monocytes % 9.8 %; Neutrophils # 5.31 10^3/uL (1.8-7.7); Neutrophils % 58.1 %; Nucleated Red Blood Cells % 0 %; Platelet Count 243 10^3/cmm (157-399); Red Cell Distribution Width 13.4 % (12.1-15.1); White Blood Count 9.15 10^3/uL (3.29-11.43)
[2024-12-22 13:16] LABS: Anion Gap 18.4 (5-19); Blood Urea Nitrogen 45 mg/dL (8-23); Carbon Dioxide 22 mmol/L (22-29); Chloride 101 mmol/L (98-107); Cholesterol 251 mg/dL (0-200); Glucose 83 mg/dL (65-115); HDL Cholesterol 66 mg/dL (60-100); LDL Cholesterol Calculated 159 mg/dL (50-129); LDL HDL Ratio 2.41 RATIO (0.00-3.22); Osmolality Calculated 295 mOsm/kg (285-295); Potassium 4.4 mmol/L (3.5-5.1); Sodium 137 mmol/L (136-145); Thyroid Stimulating Hormone 1.09 uIU/mL (0.27-4.20); Triglycerides 129 mg/dL (0-150)
[2024-12-22 13:23] LABS: Hepatitis C Virus Antibody Non-Reactive (Nonreactive)
== END 2024-12-22 12:17 | disposition home or self-care (01) ==
LOC: LAB 12:17
PROVIDERS: PCP Nurse Practitioner Family; Visit Provider Nurse Practitioner Family
DX: R00.2 Palpitations (principal); E78.5 Hyperlipidemia, unspecified; Z11.59 Encounter for screening for other viral diseases; Z94.0 Kidney transplant status; I10 Essential (primary) hypertension
CPT/HCPCS: 36415; 80048; 80061; 84443; 85025; 86803

== ENCOUNTER 2025-01-11 11:56 | Outpatient (CLI) | payer MEDICARE, MEDICAID, SELFPAY ==
[2025-01-11 12:41] LABS: Basophils % 0.2 %; Eosinophils # 0.4 10^3/uL (0.0-0.8); Eosinophils % 2.9 %; Hematocrit 28.6 % (36-47); Lymphocytes # 2.4 10^3/uL (0.8-4.8); Lymphocytes % 19.6 %; Mean Corpuscular HGB Conc 32.2 g/dL (30-55); Mean Corpuscular Hemoglobin 30.4 pg (27-33); Mean Corpuscular Volume 94.4 fl (85-98); Mean Platelet Volume 9.1 fL (7.4-10.4); Monocytes % 8.2 %; Neutrophils # 8.26 10^3/uL (1.8-7.7); Neutrophils % 68.7 %; Nucleated Red Blood Cells % 0 %; Platelet Count 219 10^3/cmm (157-399); Red Blood Count 3.03 10^6/uL (3.85-5.65); Red Cell Distribution Width 13.4 % (12.1-15.1); White Blood Count 12.02 10^3/uL (3.29-11.43)
[2025-01-11 13:00] LABS: Albumin Level 3.8 g/dL (3.5-5.2); Anion Gap 16.5 (5-19); Blood Urea Nitrogen 36 mg/dL (8-23); Calcium 8.5 mg/dL (8.5-10.5); Carbon Dioxide 22 mmol/L (22-29); Chloride 104 mmol/L (98-107); Glucose 83 mg/dL (65-115); Phosphorus 4.2 mg/dL (2.5-4.5); Potassium 4.5 mmol/L (3.5-5.1); Sodium 138 mmol/L (136-145)
[2025-01-11 13:04] LABS: Creatinine Urine, Random 68 mg/dL (28-217); Microalbumin Random Urine 6 ug/dL (0-20)
[2025-01-11 13:05] LABS: Microalbum Creatinine Ratio Ur 88 mg/dL (0-20)
[2025-01-11 13:08] LABS: Calcium 8.6 mg/dL (8.5-10.5); Parathyroid Hormone 29.3 pg/mL (15-65)
== END 2025-01-11 11:57 | disposition home or self-care (01) ==
PROVIDERS: PCP Nurse Practitioner Family; Visit Provider Registered Nurse
DX: N18.5 Chronic kidney disease, stage 5 (principal); Z94.0 Kidney transplant status
CPT/HCPCS: 80069; 80158; 82044; 82310; 83970; 85025

== ENCOUNTER → 2025-01-20 09:34 | Outpatient (BNVA) | payer MEDICARE, MEDICAID, SELFPAY | PROVIDERS: PCP Nurse Practitioner Family; Visit Provider Internal Medicine | DX: I49.8 Other specified cardiac arrhythmias (principal); I49.3 Ventricular premature depolarization; I49.1 Atrial premature depolarization | CPT/HCPCS: 93246 ==

== ENCOUNTER → 2025-02-16 12:33 | Outpatient (BNVA) | payer MEDICARE, MEDICAID, SELFPAY | PROVIDERS: PCP Nurse Practitioner Family; Visit Provider Nurse Practitioner Family | DX: L82.1 Other seborrheic keratosis (principal); L72.0 Epidermal cyst; L57.8 Other skin changes due to chronic exposure to nonionizing radiation; Z92.25 Personal history of immunosuppression therapy; Z94.0 Kidney transplant status; L57.0 Actinic keratosis | CPT/HCPCS: 17000; 99213 ==

== ENCOUNTER 2025-03-23 11:40 | Emergency (ER) | payer MEDICARE, MEDICAID, SELFPAY ==
[2025-03-23 11:50] VITALS: BP 141/78; PULSE 63; RESP 14; TEMP 36.4; O2SAT 98
--- NOTE | 2025-03-23 11:56 | USR_ITS ---
PROCEDURE INFORMATION: Exam: US Duplex Right Upper Extremity Veins, Limited Exam date and time: 03/23/2025 12:36 PM Age: 74 years old Clinical indication: Injury or trauma; Other: Hit on door/wall; Other injury to vessels; Right; Upper extremity, lower arm or forearm level; Radial artery and ulnar artery; Injury details: PT hit dialysis RT av fistula. 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 ; Additional info: Evaluate right forearm av fistula TECHNIQUE: Imaging protocol: Real-time duplex ultrasound of the right Upper Extremity with 2-D cortez scale, color Doppler flow and spectral waveform analysis with image documentation. Limited exam focused on the right upper extremity veins. COMPARISON: CT chest wo con [id number] 08/26/2022 1:53 PM FINDINGS: Soft tissues: Unremarkable. Other findings: The study was performed to evaluate this patient is dialysis graft. Proximal and distal anastomoses appear patent. No thrombus is seen. US/CV unlisted vascular [id number] IMPRESSION: Patent dialysis graft.
[2025-03-23 12:01] VITALS: BP 141/78; O2SAT 99
--- NOTE | 2025-03-23 12:32 | W.ED.EXTPRO ---
HPI - Extremity Problem General: Chief complaint: Extremity Injury, Upper Stated complaint: inj rt arm Time Seen by Provider: 03/23/25 11:51 History of Present Illness: 74-year-old female presents with some right forearm and upper arm bruising following her bumping it couple days ago. Patient has a right forearm dialysis catheter. Due to the mild increasing contusion, patient was sent in by her avionics integration engineer to have the AV fistula evaluated with an ultrasound. Associated symptoms: Deny chest pain or fever(s) Related Data Home Medications ?Medication ?Instructions ?Recorded ?Confirmed amlodipine 5 mg tablet 5 mg PO BEDTIME 08/26/22 03/23/25 atorvastatin 20 mg tablet 20 mg PO DAILY 08/26/22 03/23/25 cyclosporine modified 25 mg capsule 25 mg PO BID 08/26/22 03/23/25 metoprolol tartrate 100 mg tablet 100 mg PO BID 08/26/22 03/23/25 prednisone 10 mg tablet 10 mg PO EVERY OTHER DAY 08/26/22 03/23/25 vit C 250 mg-vit E 90 mg-zinc 40 1 tab PO DAILY 08/26/22 03/23/25 mg-copper 1 [id number] capsule (PreserVision AREDS-2) ascorbic acid (vitamin C) 500 mg See Rx Instructions .Route .COMPLEX 09/30/23 03/23/25 capsule,extended release calcitriol 0.25 mcg capsule See Rx Instructions .Route .COMPLEX 09/30/23 03/23/25 potassium chloride 20 mEq 20 meq PO DAILY 09/30/23 03/23/25 tablet,extended release(part/cryst) (Klor-Con M) ferrous gluconate 324 mg (37.5 mg 324 mg PO DAILY 03/23/25 03/23/25 iron) tablet furosemide 20 mg tablet 20 mg PO DAILY 03/23/25 03/23/25 peg 400-propylene glycol (PF) 0.4 1 drp ophthalmic (eye) QID PRN Dry 03/23/25 03/23/25 %-0.3 % eye drops in a dropperette Eyes (Systane (PF)) Previous Rx's ?Medication ?Instructions ?Recorded albuterol sulfate 90 mcg/actuation 1 puff inhalation Q6H PRN 08/28/22 aerosol inhaler Shortness Of Breath #6 grams Allergies Allergy/AdvReac Type Severity Reaction Status Date / Time Iodinated Contrast Media Allergy Mild Unknown Verified 09/30/23 13:26 Review of Systems Const: Denies: fever(s) or chills Card: Denies: chest pain or palpitations Resp: Denies: dyspnea or productive cough Skin/Breast: Reports: other (Please see HPI) [facility] ED PFSH: Medical History (Updated 03/23/25 @ 13:45 by Julio Ryan DO) Chronic kidney disease (CKD) Pericardial effusion Left bundle branch block Emphysema/COPD Pulmonary edema Pleural effusion, bilateral Heart failure HTN (hypertension) Surgical History (Updated 09/30/23 @ 14:19 by Santo Gaitan MD) History of kidney transplant H/O thyroidectomy Family History Other CAD (coronary artery disease) Social History Smoking and tobacco/nicotine status: never used tobacco/nicotine Second hand smoke exposure: Yes Physical Exam Const: COMMON NORMALS: no acute distress, patient oriented x3 and alert Resp: COMMON NORMALS: normal respiratory effort and clear to auscultation bilaterally AUSCULTATION: clear to auscultation bilaterally Cardio: COMMON NORMALS: regular rate and regular rhythm RATE: regular rate RHYTHM: regular rhythm Neuro: COMMON NORMALS: patient oriented x3 SENSORIUM/ORIENTATION: Yes alert Skin: NARRATIVE SKIN EXAM: Moderate senile purpura right forearm and upper arm Course Vital Signs: Vital signs: Vital Signs Temperature 97.6 F 03/23/25 11:50 Pulse Rate 64 03/23/25 14:07 Respiratory Rate 16 03/23/25 14:07 Blood Pressure 144/69 03/23/25 14:07 Pulse Oximetry 96 03/23/25 14:07 Oxygen Delivery Me thod Room Air 03/23/25 11:50 MDM - Extremity (Nontraumatic) Medical Decision Making Patient's ultrasound was reviewed and shows patent AV fistula with no abnormalities noted. Patient does have senile purpura consistent with her age and recent mild trauma. Discussed with him supportive care. They should follow-up with her avionics integration engineer as needed. She is stable and discharged home. Lab Data Radiology Impressions Vascular Ultrasound 03/23/25 11:56 IMPRESSION: Patent dialysis graft. All radiology interpretation(s) finalized by discharge Discharge Plan Discharge Patient Disposition: Home Clinical Impression: Senile purpura Condition: Stable Prescriptions: No Action calcitriol 0.25 mcg capsule See Rx Instructions .ROUTE .COMPLEX Rx Instructions: Take 1 tablet by mouth on Friday, Friday, and Friday. potassium chloride [Klor-Con M20] 20 mEq tablet,ER particles/crystals 20 meq PO DAILY ascorbic acid (vitamin C) 500 mg capsule, extended release See Rx Instructions .ROUTE .COMPLEX Rx Instructions: Take 500 mg by mouth on Friday, , and Friday. prednisone 10 mg tablet 10 mg PO EVERY OTHER DAY atorvastatin 20 mg tablet 20 mg PO DAILY metoprolol tartrate 100 mg tablet 100 mg PO BID cyclosporine modified 25 mg capsule 25 mg PO BID amlodipine 5 mg tablet 5 mg PO BEDTIME PreserVision AREDS-2 250-90-40-1 mg Capsule 1 tab PO DAILY albuterol sulfate 90 mcg/actuation HFA aerosol inhaler 1 puff INHALATION Q6H PRN (Reason: Shortness Of Breath) Qty: 6 0RF furosemide 20 mg tablet 20 mg PO DAILY Systane (PF) 0.4-0.3 % Dropperette 1 drp OPHTHALMIC (EYE) QID PRN (Reason: Dry Eyes) ferrous gluconate 324 mg (37.5 mg iron) Tablet 324 mg PO DAILY Discharge Orders: Discharge ED (Routine); Ordered 03/23/25 Ordered By: Julio Ryan Referrals: Bridges,Estelle, STUDENT SERVICES REPRESENTATIVE [Primary Care Provider, Nurse Practitioner] Discharge Diet: Usual diet Discharge Activity: Resume usual activity Patient Instructions: Purpura (ED), Opioid Safety, Pain Management Activity Restrictions/Additional Instructions: please follow up with your neprologist as needed. Print Language: Amharic Coding Level of Care Code ED Sanitation Engineer for Will Collado
[2025-03-23 14:07] VITALS: BP 144/69; PULSE 64; RESP 16; O2SAT 96
== END 2025-03-23 14:10 | disposition home or self-care (01) ==
PROVIDERS: Emergency Provider Student in an Organized Health Care Education/Training Program; PCP Nurse Practitioner Family
DX: D69.2 Other nonthrombocytopenic purpura (principal); I13.2 Hypertensive heart and chronic kidney disease with heart failure and with stage 5 chronic kidney disease, or end stage renal disease; N18.6 End stage renal disease; I50.9 Heart failure, unspecified; Z99.2 Dependence on renal dialysis; Z79.899 Other long term (current) drug therapy; Z91.041 Radiographic dye allergy status; W22.8XXA Striking against or struck by other objects, initial encounter
CPT/HCPCS: 93998; 99284

== ENCOUNTER 2025-04-11 11:35 | Outpatient (CLI) | payer MEDICARE, MEDICAID, SELFPAY ==
[2025-04-11 12:30] LABS: Bilirubin Urine Negative (Negative); Blood Urine Negative (Negative); Glucose Urine UA Negative (Normal); Ketones Urine Negative (Negative); Leukocyte Esterase Urine Negative (Negative); Nitrate Urine Negative (Negative); Protein Urine Negative (Negative); Specific Gravity, Urine 1.009 (1.005-1.030); Urine Appearance Cloudy (CLEAR); Urine Color Yellow (Yellow); Urobilinogen Urine 0.2 mg/dL (Negative)
[2025-04-11 12:32] LABS: Bacteria Urine 1+ /hpf; Hyaline Casts Urine 2.05 /lpf; RBC Urine 0-2 /hpf (0-2); WBC Urine 0-5 /hpf (0-5)
[2025-04-11 12:51] LABS: Creatinine Urine, Random 69 mg/dL (28-217); Microalbumin Random Urine 3 ug/dL (0-20)
[2025-04-11 12:52] LABS: Microalbum Creatinine Ratio Ur 43 mg/dL (0-20)
[2025-04-11 13:08] LABS: Basophils # 0.1 10^3/uL (0.0-0.1); Basophils % 0.6 %; Eosinophils # 0.3 10^3/uL (0.0-0.8); Hematocrit 30.8 % (36-47); Lymphocytes # 2.6 10^3/uL (0.8-4.8); Lymphocytes % 29.2 %; Mean Corpuscular HGB Conc 32.1 g/dL (30-55); Mean Corpuscular Hemoglobin 30.7 pg (27-33); Mean Corpuscular Volume 95.7 fl (85-98); Monocytes # 0.8 10^3/uL (0.2-0.9); Monocytes % 9.5 %; Neutrophils # 4.99 10^3/uL (1.8-7.7); Neutrophils % 57.1 %; Nucleated Red Blood Cells % 0 %; Platelet Count 203 10^3/cmm (157-399); Red Blood Count 3.22 10^6/uL (3.85-5.65); Red Cell Distribution Width 13.6 % (12.1-15.1); White Blood Count 8.73 10^3/uL (3.29-11.43)
[2025-04-11 13:23] LABS: Anion Gap 20.5 (5-19); Blood Urea Nitrogen 42 mg/dL (8-23); Calcium 8.8 mg/dL (8.5-10.5); Carbon Dioxide 17 mmol/L (22-29); Chloride 105 mmol/L (98-107); Glucose 81 mg/dL (65-115); Magnesium 2.1 mg/dL (1.7-2.3); Phosphorus 4.3 mg/dL (2.5-4.5); Potassium 4.5 mmol/L (3.5-5.1); Sodium 138 mmol/L (136-145)
[2025-04-11 13:33] LABS: Calcium 8.5 mg/dL (8.5-10.5)
[2025-04-12 17:09] LABS: Cyclosporine A Trough Level 324 mcg/L
== END 2025-04-11 11:36 | disposition home or self-care (01) ==
LOC: LAB 11:40
PROVIDERS: PCP Nurse Practitioner Family; Visit Provider Registered Nurse
DX: N18.4 Chronic kidney disease, stage 4 (severe) (principal); D84.9 Immunodeficiency, unspecified; Z94.0 Kidney transplant status
CPT/HCPCS: 36415; 80069; 80158; 81001; 82044; 82310; 83735; 83970; 85025

== ENCOUNTER → 2025-05-24 12:17 | Outpatient (BNVA) | payer MEDICARE, MEDICAID, SELFPAY | PROVIDERS: PCP Nurse Practitioner Family; Visit Provider Internal Medicine Cardiovascular Disease | DX: I47.10 Supraventricular tachycardia, unspecified (principal); I44.7 Left bundle-branch block, unspecified; I10 Essential (primary) hypertension; I34.0 Nonrheumatic mitral (valve) insufficiency; I31.39 Other pericardial effusion (noninflammatory) | CPT/HCPCS: 99214 ==

== ENCOUNTER 2025-06-23 12:38 | Outpatient (CLI) | payer MEDICARE, MEDICAID, SELFPAY ==
--- NOTE | 2025-06-23 13:30 | USCV_ITS ---
Blanca Anguiano Age: 75 Gender: F : 1950 Exam Date: 06/23/2025 12:58 Ordering Phys: Darci Peralta MD ([email or web address]) Technologist: ORALIA Exam Location: [facility] Indication: SoB BP: 130 / 70 HR: 63 Rhythm: Sinus Technical Quality: Adequate MEASUREMENTS (Male / Female) Normal Values 2D ECHO LV Diastolic Diameter PLAX 4.5 cm 4.2 - 5.9 / 3.9 - 5.3 cm IVS Diastolic Thickness 1.0 cm 0.6 - 1.0 / 0.6 - 0.9 cm IVS Systolic Thickness 2.0 cm LVPW Systolic Thickness 1.9 cm LVOT Diameter 2.0 cm LV Ejection Fraction 2D Teich 52.4 % LV Ejection Fraction MOD 4C 55.0 % LV Ejection Fraction MOD 2C 71.2 % LV Ejection Fraction 2C AL 35.2 % LA Diameter 3.7 cm RA Systolic Volume 4C AL 23.7 ml RA Systolic Volume 4C MOD 21.0 ml LA Sys Volume AL 44.1 cm cubed LA Sys Volume Index AL 34.5 cm cubed/m squared Aorta at Sinotubular Diameter 2.1 cm IVC Diameter 1.5 cm M-MODE LA Ao Ratio MM 1.4 AV Cusp Separation MM 1.2 cm DOPPLER AV Peak Velocity 131.0 cm/s LVOT Peak Velocity 96.0 cm/s AV Area Cont Eq vti 2.2 cm squared AV Area Cont Eq pk 2.3 cm squared MV Peak Velocity 117.0 cm/s MV Area PHT 4.4 cm squared Mitral E to A Ratio 0.6 TV Peak Velocity 186.0 cm/s TR Peak Velocity 261.0 cm/s TR Peak Gradient 27.2 mmHg TV Peak E Velocity 56.0 cm/s PV Peak Velocity 111.0 cm/s FINDINGS Left Ventricle Normal left ventricular cavity size. Normal left ventricular wall thickness. Abnormal septal motion consistent with conduction abnormality. Globally low normal left ventricular systolic function, EF 54%. Grade I/IV diastolic dysfunction (abnormal relaxation filling pattern), normal to mildly elevated filling pressures. Right Ventricle Normal right ventricular size and systolic function. Normal right ventricular systolic pressure, 30 mmHG. Right Atrium Normal right atrial size. Left Atrium Mildly increased left atrial size. Mitral Valve Mild mitral valve regurgitation. Aortic Valve No aortic valve stenosis. No aortic valve regurgitation. Tricuspid Valve Mild tricuspid valve regurgitation. Pulmonic Valve No pulmonary valve stenosis. No pulmonary valve regurgitation. Pericardium Trace to small pericardial effusion along the right atrium and right ventricle with no echocardiogram evidence of tamponade. Aorta Normal size aortic root and proximal ascending aorta. IVC Normal inferior vena cava. CONCLUSIONS 1. Paradoxical septal motion of the left ventricle with globally normal ejection fraction of 54%. 2. Mild mitral valve regurgitation 3. Trace to small pericardial effusion along the right atrium and right ventricle with no echocardiogram evidence of tamponade. 4. Grade 1 left ventricular diastolic dysfunction, normal for patient's age. Darci Peralta MD, FACC (Electronically Signed) Final Date: 24 June 2025 18:22 S
== END 2025-06-23 12:39 | disposition home or self-care (01) ==
LOC: RAD 12:40
PROVIDERS: PCP Nurse Practitioner Family; Visit Provider Internal Medicine Cardiovascular Disease
DX: I34.0 Nonrheumatic mitral (valve) insufficiency (principal); R06.02 Shortness of breath; I51.89 Other ill-defined heart diseases; I31.39 Other pericardial effusion (noninflammatory)
CPT/HCPCS: 93306

== ENCOUNTER 2025-07-19 10:26 | Outpatient (CLI) | payer MEDICARE, MEDICAID, SELFPAY ==
[2025-07-19 12:24] LABS: Alanine Aminotransferase 10 U/L (0-33); Albumin Level 4.1 g/dL (3.5-5.2); Alkaline Phosphatase 49 U/L (35-105); Anion Gap 21.2 (5-19); Aspartate Amino Transferase 17 U/L (0-32); Blood Urea Nitrogen 36 mg/dL (8-23); Calcium 7.6 mg/dL (8.5-10.5); Carbon Dioxide 18 mmol/L (22-29); Chloride 104 mmol/L (98-107); Cholesterol 258 mg/dL (0-200); Globulin 2.8 g/dL (1.3-4.6); Glucose 100 mg/dL (65-115); HDL Cholesterol 56 mg/dL (60-100); Magnesium 2.1 mg/dL (1.7-2.3); Osmolality Calculated 294 mOsm/kg (285-295); Potassium 5.2 mmol/L (3.5-5.1); Sodium 138 mmol/L (136-145); Total Protein 6.9 g/dL (6.6-8.7); Triglycerides 186 mg/dL (0-150)
[2025-07-19 12:25] LABS: Creatinine Urine, Random 59 mg/dL (28-217)
[2025-07-19 12:32] LABS: Microalbum Creatinine Ratio Ur 102 mg/dL (0-20)
[2025-07-19 12:34] LABS: Calcium 7.7 mg/dL (8.5-10.5)
[2025-07-19 12:42] LABS: Add Urine Microscopic? YES
== END 2025-07-19 10:27 | disposition home or self-care (01) ==
LOC: LAB 10:33
PROVIDERS: PCP Nurse Practitioner Family; Visit Provider Registered Nurse
DX: N18.5 Chronic kidney disease, stage 5 (principal); Z94.0 Kidney transplant status
CPT/HCPCS: 36415; 80053; 80061; 80158; 81001; 82044; 82310; 83735; 83970

== ENCOUNTER 2025-07-19 11:40 | Outpatient (CLI) | payer MEDICARE, MEDICAID, SELFPAY | END 2025-07-19 11:41 | disposition home or self-care (01) | LOC: SLEEP 11:41 | PROVIDERS: PCP Nurse Practitioner Family; Visit Provider Nurse Practitioner Family | DX: J44.9 Chronic obstructive pulmonary disease, unspecified (principal) | CPT/HCPCS: 94762 ==

== ENCOUNTER 2025-07-26 07:42 | Outpatient (CLI) | payer MEDICARE, MEDICAID, SELFPAY ==
[2025-07-27 16:45] LABS: Cyclosporine A Trough Level 84 mcg/L
== END 2025-07-26 07:43 | disposition home or self-care (01) ==
LOC: LAB 07:45
PROVIDERS: PCP Nurse Practitioner Family; Visit Provider Registered Nurse
DX: D84.9 Immunodeficiency, unspecified (principal); N18.4 Chronic kidney disease, stage 4 (severe)
CPT/HCPCS: 36415; 80158

== ENCOUNTER 2025-08-11 12:27 | Outpatient (CLI) | payer MEDICARE, MEDICAID, SELFPAY ==
[2025-08-11 14:08] LABS: Anion Gap 20.9 (5-19); Blood Urea Nitrogen 48 mg/dL (8-23); Calcium 7.4 mg/dL (8.5-10.5); Carbon Dioxide 21 mmol/L (22-29); Chloride 100 mmol/L (98-107); Glucose 87 mg/dL (65-115); Osmolality Calculated 298 mOsm/kg (285-295); Potassium 3.9 mmol/L (3.5-5.1); Sodium 138 mmol/L (136-145)
[2025-08-11 14:18] LABS: NT Pro B Type Natriuretic Pept 27437 pg/mL (0-450)
== END 2025-08-11 12:28 | disposition home or self-care (01) ==
LOC: LAB 12:30
PROVIDERS: Absent Provider Registered Nurse; PCP Nurse Practitioner Family; Visit Provider Nurse Practitioner Family
DX: I50.9 Heart failure, unspecified (principal); N18.5 Chronic kidney disease, stage 5; Z94.0 Kidney transplant status
CPT/HCPCS: 36415; 80048; 83880

== ENCOUNTER 2025-08-23 12:19 | Outpatient (CLI) | payer MEDICARE, MEDICAID, SELFPAY ==
[2025-08-23 13:54] LABS: Anion Gap 19.0 (5-19); Blood Urea Nitrogen 39 mg/dL (8-23); Calcium 7.4 mg/dL (8.5-10.5); Carbon Dioxide 23 mmol/L (22-29); Chloride 103 mmol/L (98-107); Glucose 85 mg/dL (65-115); Osmolality Calculated 301 mOsm/kg (285-295); Potassium 4.0 mmol/L (3.5-5.1); Sodium 141 mmol/L (136-145)
== END 2025-08-23 12:20 | disposition home or self-care (01) ==
LOC: LAB 12:20
PROVIDERS: PCP Nurse Practitioner Family; Visit Provider Registered Nurse
DX: N18.5 Chronic kidney disease, stage 5 (principal); Z94.0 Kidney transplant status
CPT/HCPCS: 36415; 80048

== ENCOUNTER 2025-08-25 07:02 | Inpatient (IN) | payer MEDICARE, MEDICAID, SELFPAY ==
[2025-08-25] VITALS (15 sets, daily range): BP systolic 123–156; BP diastolic 66–81; PULSE 65–111; RESP 12–28; TEMP 36.3–36.8; O2SAT 78–99; BMI 14.6
--- NOTE | 2025-08-25 07:05 | XR_ITS ---
WS: [id number] Exam: XR chest 1V portable [id number] Date/Time of Exam: 08/25/2025 7:25 AM Reason For Exam: sob Comparison 07/09/2023. There is cardiac enlargement with pulmonary vascular congestion suggesting CHF. There are bilateral infiltrates in the mid and lower lung zones. Superimposed pneumonia not excluded. Small bibasal pleural effusions. No pneumothorax. The mediastinum is normal in contour. Bony structures are intact. Prominent RIGHT pulmonary hilum. Recommendations: A nonemergent PA and lateral chest radiograph for follow-up would be suggested. XR/XR chest 1V portable [id number] IMPRESSION: 1. Cardiac enlargement with signs of congestive heart failure. 2. Bilateral pulmonary infiltrates which might indicate superimposed pneumonia. 3. Masslike density at the RIGHT hilum.
--- OUTSIDE RECORDS SUMMARY | 2025-08-25 07:07 | XMS_ITS | Encounter Summary ---
Author Organization [facility] Address [address] [place] [address] Care Team Providers Care Cloth Winding Supervisor Name Role Phone Shelby Clayton DO Primary Care Provider [phone] Encounter Details Date Type Department Care Team (Latest Contact Info) Description 09/10/2000 Outpatient Historical [facility] Brian Chinchilla NO ADDRESS ON FILE Need vaccination-viral disease (Primary Dx) Social History Tobacco Use Types Packs/Day Years Used Date Smoking Tobacco: Never Assessed Comments Unknown Sex and Gender Information Value Date Recorded Sex Assigned at Not on file 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
--- OUTSIDE RECORDS SUMMARY | 2025-08-25 07:07 | XMS_ITS | Clinical Summary ---
Author Organization [facility] Address [address] Attn: Epic Prelude ADT [place] [address] Care Team Providers Care Backfiller Name Role Phone Shelby Clayton DO Primary Care Provider [phone] Immunizations Immunization Administration Dates Next Due (TDVAX)(7 YRS UP) TETANUS AN D DIPHTHERIA TOXOIDS, ADSORBED (2 LF OF TETANUS TOXOID AND 2 LF OF DIPHTHERIA TOXOID), 0.5ML (PF), IM 10/10/2000 Influenza Seasonal Unspecified Formulation IM ,08/09/1998 Social History Tobacco Use Types Packs/Day Years Used Date Smoking Tobacco: Never Assessed Comments Unknown Sex and Gender Information Value Date Recorded Sex Assigned at Not on file 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
--- OUTSIDE RECORDS SUMMARY | 2025-08-25 07:07 | XMS_ITS | Encounter Summary ---
Author Organization [facility] Address [address] [place] [address] Care Team Providers Care Special Services Coordinator Name Role Phone Shelby Clayton DO Primary Care Provider [phone] Encounter Details Date Type Department Care Team (Late st Contact Info) Description 09/19/[address] 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
--- OUTSIDE RECORDS SUMMARY | 2025-08-25 07:07 | XMS_ITS | Encounter Summary ---
Author Organization [facility] Address [address] [place] [address] Care Team Providers Care Lighting Fixture Installer Name Role Phone Shelby Clayton DO Primary Care Provider [phone] Encounter Details Date Type Department Care Team (Latest Contact Info) Description 01/16/2005 Outpatient Historical [facility] [address] [place] [address] [facility] [address] [place] [address] Abimael Soria MD [address] [facility] [address] [place] [address] CERVICALGIA (Primary Dx) Social History Tobacco Use Types Packs/Day Years Used Date Smoking Tobacco: Never Assessed Comments Unknown Sex and Gender Information Value Date Recorded Sex Assigned at Not on file 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
--- OUTSIDE RECORDS SUMMARY | 2025-08-25 07:07 | XMS_ITS | Encounter Summary ---
Author Organization [facility] Address [address] [place] [address] Care Team Providers Care Cash Posting Representative Name Role Phone Shelby Clayton DO Primary Care Provider [phone] Encounter Details Date Type Department Care Team (Latest Contact Info) Description 07/03/1999 Outpatient Historical HIS [facility] TimothyBrian sánchez NO ADDRESS ON FILE Postmenopausal bleeding (Primary Dx); Nonspecific abnormal finding in stool contents Social History Tobacco Use Types Packs/Day Years Used Date Smoking Tobacco: Never Assessed Comments Unknown Sex and Gender Information Value Date Recorded Sex Assigned at Not on file 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
--- OUTSIDE RECORDS SUMMARY | 2025-08-25 07:07 | XMS_ITS | Encounter Summary ---
Author Organization [facility] Address [address] [place] [address] Care Team Providers Care Gas Meter Prover Name Role Phone Shelby Clayton DO Primary Care Provider [phone] Encounter Details Date Type Department Care Team (Latest Contact Info) Description 01/16/2005 Outpatient Historical [facility] [address] [place] [address] Abimael Soria MD [address] 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
--- OUTSIDE RECORDS SUMMARY | 2025-08-25 07:07 | XMS_ITS | Encounter Summary ---
Author Organization [facility] Address [address] [place] [address] Care Team Providers Care Shift Commander Name Role Phone Shelby Clayton DO Primary Care Provider [phone] Encounter Details Date Type Department Care Team (Latest Contact Info) Description 04/16/2000 Outpatient Historical [facility] Brian Chinhcilla NO ADDRESS ON FILE Preoperative examination, unspecified (Primary Dx); Nonspecific abnormal finding in stool contents; Osteoporosis, unspecified; Unspecified essential hypertension Social History Tobacco Use Types Packs/Day Years Used Date Smoking Tobacco: Never Assessed Comments Unknown Sex and Gender Information Value Date Recorded Sex Assigned at Not on file 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
--- OUTSIDE RECORDS SUMMARY | 2025-08-25 07:07 | XMS_ITS | Encounter Summary ---
Author Organization [facility] Address [address] [place] [address] Care Team Providers Care Technical Operations Manager Name Role Phone Shelby Clayton DO Primary Care Provider [phone] Encounter Details Date Type Department Care Team (Latest Contact Info) Description 08/18/2002 Outpatient Historical [facility] Mitchel Rangel MD [address] [place] [address] DERMATOPHYTOSIS OF BODY (Primary Dx) Social History Tobacco Use Types Packs/Day Years Used Date Smoking Tobacco: Never Assessed Comments Unknown Sex and Gender Information Value Date Recorded Sex Assigned at Not on file 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
--- OUTSIDE RECORDS SUMMARY | 2025-08-25 07:07 | XMS_ITS | Encounter Summary ---
Author Organization [facility] Address [address] [place] [address] Care Team Providers Care Creative Assistant Name Role Phone Shelby Clayton DO Primary Care Provider [phone] Encounter Details Date Type Department Care Team (Latest Contact Info) Description 10/10/2000 Outpatient Historical [facility] Brian Chinchilla NO ADDRESS ON FILE Need for prophylactic vaccination with tetanus-diphtheria (Td) (Primary Dx) Social History Tobacco Use Types Packs/Day Years Used Date Smoking Tobacco: Never Assessed Comments Unknown Sex and Gender Information Value Date Recorded Sex Assigned at Not on file Legal Sex Female 5:22 AM STRATEGY DIRECTOR Gender Identity Not on file Sexual Orientation Not on file documented as of this encounter Plan of Treatment Not on file documented as of this encounter Visit Diagnoses Diagnosis Need for prophylactic vaccination with tetanus-diphtheria (Td)- Primary documented in this encounter Care Teams Creative Assistant Relationship Specialty Start Date End Date Shelby Clayton DO [address] [place] [address] PCP - General 01/16/05 documented as of this encounter
--- OUTSIDE RECORDS SUMMARY | 2025-08-25 07:07 | XMS_ITS | Encounter Summary ---
Author Organization [facility] Address [address] [place] [address] Care Team Providers Care Glassware Finisher Name Role Phone Shelby Clayton DO Primary Care Provider [phone] Encounter Details Date Type Department Care Team (Latest Contact Info) Description 07/17/1999 Outpatient Historical [facility] Tim[place] Brian Ortega NO ADDRESS ON FILE Postmenopausal bleeding (Primary Dx); Nonspecific abnormal finding in stool contents Social History Tobacco Use Types Packs/Day Years Used Date Smoking Tobacco: Never Assessed Comments Unknown Sex and Gender Information Value Date Recorded Sex Assigned at Not on file 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
--- NOTE | 2025-08-25 07:12 | ECG_ITS ---
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 Measurements Intervals [place] Rate: 102 P: 147 OK: 159 QRS: 22 QRSD: 144 T: 169 QT: 343 QTc: 447 Interpretive Statements ECTOPIC ATRIAL TACHYCARDIA LEFT BUNDLE BRANCH BLOCK [120+ ms QRS DURATION, 80+ ms Q/S IN V1/V2, 85+ ms R IN I/aVL/V5/V6] LATERAL MYOCARDIAL INFARCTION , OF INDETERMINATE AGE [40+ ms Q WAVE AND/OR ST/T ABNORMALITY IN I/aVL/V5/V6] Compared to ECG 08/26/2022 14:44:23 Myocardial infarct finding now present Sinus rhythm no longer present Electronically Signed On 08-26-2025 13:13:03 PBX SUPERVISOR by Alex Darden M.D. [email or web address]
--- NOTE | 2025-08-25 07:12 | W.ED.SOB ---
HPI - SOB/Dyspnea General: Chief Complaint: Shortness of Breath/Dyspnea Stated Complaint: SOB High BP wheezing Time Seen by Provider: 08/25/25 07:06 Source: patient Mode of arrival: ambulatory Limitations: no limitations History of Present Illness: HPI Narrative: 77-year-old female with multiple medical issues has a history of kidney transplant, chronic kidney disease, COPD. Patient states that over the last 2 to 3 days she has been having increasing shortness of breath. States she has had a mild cough along with wheezing she also had bilateral lower extremity edema. She states she wears oxygen as needed is hypoxic here at 78% requiring 5 L. Had a mild cough denies any fevers denies any pain Related Data Home Medications ?Medication ?Instructions ?Recorded ?Confirmed amlodipine 5 mg tablet 5 mg PO BEDTIME 08/26/22 05/24/25 atorvastatin 20 mg tablet 20 mg PO DAILY 08/26/22 05/24/25 cyclosporine modified 25 mg capsule 25 mg PO BID 08/26/22 05/24/25 metoprolol tartrate 100 mg tablet 100 mg PO BID 08/26/22 05/24/25 prednisone 10 mg tablet 10 mg PO EVERY OTHER DAY 08/26/22 05/24/25 vit C 250 mg-vit E 90 mg-zinc 40 1 tab PO DAILY 08/26/22 05/24/25 mg-copper 1 [id number]-[id number] capsule (PreserVision AREDS-2) ascorbic acid (vitamin C) 500 mg See Rx Instructions .Route .COMPLEX 09/30/23 05/24/25 capsule,extended release calcitriol 0.25 mcg capsule See Rx Instructions .Route .COMPLEX 09/30/23 05/24/25 potassium chloride 20 mEq 20 meq PO DAILY 09/30/23 05/24/25 tablet,extended release(part/cryst) (Klor-Con M) ferrous gluconate 324 mg (37.5 mg 324 mg PO DAILY 03/23/25 05/24/25 iron) tablet furosemide 20 mg tablet 20 mg PO DAILY 03/23/25 03/23/25 peg 400-propylene glycol (PF) 0.4 1 drp ophthalmic (eye) QID PRN Dry 03/23/25 05/24/25 %-0.3 % eye drops in a dropperette Eyes (Systane (PF)) calcium carbonate-vitamin tab PO DAILY 05/24/25 05/24/25 D2-minerals tablet Previous Rx's ?Medication ?Instructions ?Recorded albuterol sulfate 90 mcg/actuation 1 puff inhalation Q6H PRN 08/28/22 aerosol inhaler Shortness Of Breath #6 grams Allergies Allergy/AdvReac Type Severity Reaction Status Date / Time Iodinated Contrast Media Allergy Mild Unknown Verified 05/24/25 13:21 Review of Systems Resp: Reports: dyspnea PFS ED PFSH: Medical History (Updated 08/25/25 @ 08:41 by Peyton Hassan MD) Chronic kidney disease (CKD) Pericardial effusion Left bundle branch block Emphysema/COPD Pulmonary edema Pleural effusion, bilateral Heart failure HTN (hypertension) Surgical History History of kidney transplant H/O thyroidectomy Family History Other CAD (coronary artery disease) Social History Smoking and tobacco/nicotine status: never used tobacco/nicotine Second hand smoke exposure: Yes Physical Exam Const: COMMON NORMALS: patient oriented x3 and healthy appearing HENMT: COMMON NORMALS: normocephalic and atraumatic HEAD & SCALP: normocephalic and atraumatic Eye: COMMON NORMALS: conjunctivae normal CONJUNCTIVA: Yes conjunctivae normal Neck/C-Spine: COMMON NORMALS: full ROM and supple Chest: COMMONS NORMALS: normal inspection of the chest Resp: COMMON NORMALS: No retractions and No use of accessory muscles AUSCULTATION: rales and wheezes Cardio: COMMON NORMALS: regular rate, regular rhythm and No murmurs present (Cardio) RATE: regular rate RHYTHM: regular rhythm GI: COMMON NORMALS: Normal to inspection, nondistended, normoactive bowel sounds present, Soft to palpation, non-tender and no masses PALPATION: Yes Soft to palpation Extremity: COMMON NORMALS: full ROM NARRATIVE EXTREMITY EXAM: 2+ edema Neuro: COMMON NORMALS: patient oriented x3, moves all extremities and no focal motor deficits Psych: COMMON NORMALS: mental status grossly normal, Normal thought process present and cooperative THOUGHT PROCESS: Normal thought process present Skin: COMMON NORMALS: no rashes or lesions noted and no wounds GENERAL SKIN EXAM: no rashes or lesions noted Course Vital Signs: Vital signs: Vital Signs Temperature 98.0 F 08/25/25 07:06 Pulse Rate 101 H 08/25/25 07:30 Respiratory Rate 28 H 08/25/25 07:22 Blood Pressure 156/81 08/25/25 07:46 Pulse Oximetry 90 08/25/25 07:22 Oxygen Delivery Me thod Nasal Cannula 08/25/25 07:22 Oxygen Flow Rate 5 08/25/25 07:22 MDM - SOB/Dyspnea Medical Decision Making 75-year-old female with multiple comorbidities including history of kidney kidney transplant COPD chronic kidney disease. Patient presented here with increasing shortness of breath with hypoxia to 78%. Differential includes COPD exacerbation, congestive heart failure, pneumonia, pulm emboli. Patient has no signs of pulmonary emboli she continued to be hypoxic here even on 5 L chest x-ray was interpreted by me did show cardiac enlargement with signs of CHF with bilateral pulmonary infiltrates I believe is likely pulmonary edema but could be pneumonia. She was placed on BiPAP due to her hypoxia and oxygenation saturation has improved. Labs were reviewed which did show a BNP over 70,000 her creatinine here is 2.9 and which is at her baseline. On exam she does have signs of heart failure with bilateral lower extremity edema. EKG here was interpreted by me showed ectopic atrial tachycardia [address] elevation left bundle branch block QRS 144 QTc 4 2 is unchanged from previous EKGs. critical care time 40 min The high probability of a clinically significant, sudden or life threatening deterioration of the patient's resp system(s) required my full and direct attention, intervention and personal management. The critical care time is as shown. This time is in addition to time spent performing any reported procedures but includes the following: [x] Data and vital sign review and interpretation [x] Patient assessment, examination and intervention [x] Documentation [x] Medication orders and management I went over all these findings with patient and family also did give her IV Lasix here as well and antibiotics for possible pneumonia spoke to hospitalist Dr. Lau and will admit to the cardiac stepdown unit Medical Records I reviewed the patient's medical records. Lab Data I reviewed the patient's lab results. 08/25/25 07:16 08/25/25 07:16 Labs/Radiology: Radiology Impressions Chest X-Ray 08/25/25 07:05 IMPRESSION: 1. Cardiac enlargement with signs of congestive heart failure. 2. Bilateral pulmonary infiltrates which might indicate superimposed pneumonia. 3. Masslike density at the RIGHT hilum. Laboratory Results WBC 11.90 10^3/uL (3.29-11.43) H 08/25/25 07:16 RBC 3.07 10^6/uL (3.85-5.65) L 08/25/25 07:16 Hgb 9.20 g/dL (11.27-16.99) L 08/25/25 07:16 Hct 29.6 % (36-47) L 08/25/25 07:16 MCV 96.4 fl (85-98) 08/25/25 07:16 MCH 30.0 pg (27-33) 08/25/25 07:16 MCHC 31.1 g/dL (30-55) 08/25/25 07:16 RDW 13.2 % (12.1-15.1) 08/25/25 07:16 Plt Count 260 10^3/cmm (157-399) 08/25/25 07:16 MPV 9.5 fL (7.4-10.4) 08/25/25 07:16 Neut % (Auto) 57.1 % 08/25/25 07:16 Lymph % (Auto) 33.4 % 08/25/25 07:16 Giles % (Auto) 6.6 % 08/25/25 07:16 Eos % (Auto) 2.2 % 08/25/25 07:16 Baso % (Auto) 0.4 % 08/25/25 07:16 Neut # (Auto) 6.79 10^3/uL (1.8-7.7) 08/25/25 07:16 Lymph # (Auto) 4.0 10^3/uL (0.8-4.8) 08/25/25 07:16 Giles # (Auto) 0.8 10^3/uL (0.2-0.9) 08/25/25 07:16 Eos # (Auto) 0.3 10^3/uL (0.0-0.8) 08/25/25 07:16 Baso # (Auto) 0.1 10^3/uL (0.0-0.1) 08/25/25 07:16 Nucleated RBC % (auto) 0 % 08/25/25 07:16 Nucleated RBCs # 0.0 /100WBC 08/25/25 07:16 Specimen Type Arterial 08/25/25 08:15 Sample Site Radial, left 08/25/25 08:15 ABG pH 7.24 (7.35-7.45) L 08/25/25 08:15 ABG pCO2 46.7 mmHg (35-45) H 08/25/25 08:15 ABG pO2 57.5 mmHg (80.0-100.0) L 08/25/25 08:15 ABG PO2/FiO2 Ratio 130 08/25/25 08:15 ABG HCO3 19.9 mmol/L (22-26) L 08/25/25 08:15 ABG O2 Saturation 85.4 08/25/25 08:15 ABG Base Excess -7.3 mmol/L (-2.0-2.0) L 08/25/25 08:15 Mehul Test Pos 08/25/25 08:15 A-a O2 Gradient 26.1 mmHg (5-10) H 08/25/25 08:15 Hematocrit 31.2 % (37-47) L 08/25/25 08:15 Hgb O2 Saturation 83.9 % (95-100) L 08/25/25 08:15 Carboxyhemoglobin 0.7 %THgb (0.4-20.1) 08/25/25 08:15 Methemoglobin 1.0 % (0.4-1.5) 08/25/25 08:15 Total Hemoglobin 10.2 g/dL (12-16) L 08/25/25 08:15 Sodium 139.0 mmol/L (131-143) 08/25/25 08:15 Potassium 4.0 mmol/L (3.5-5.0) 08/25/25 08:15 Glucose 272.0 mg/dL (70-115) H 08/25/25 08:15 Ionized Calcium 1.0 mmol/L (1.1-1.4) L 08/25/25 08:15 O2 Delivery Device Nc 08/25/25 08:15 O2 Liters/Min 6.0 % 08/25/25 08:15 FiO2 44.0 % 08/25/25 08:15 Mutuel Clerk ID Amh 08/25/25 08:15 Sodium 141 mmol/L (136-145) 08/25/25 07:16 Potassium 4.1 mmol/L (3.5-5.1) 08/25/25 07:16 Chloride 101 mmol/L (98-107) 08/25/25 07:16 Carbon Dioxide 19 mmol/L (22-29) L 08/25/25 07:16 Anion Gap 25.1 (5-19) H 08/25/25 07:16 BUN 37 mg/dL (8-23) H 08/25/25 07:16 Creatinine 2.9 mg/dL (0.5-0.9) H 08/25/25 07:16 GFR Calculation Not Reportable 08/25/25 07:16 Glucose 208 mg/dL (65-115) H 08/25/25 07:16 Calculated Osmolality 307 mOsm/kg (285-295) H 08/25/25 07:16 Calcium 7.5 mg/dL (8.5-10.5) L 08/25/25 07:16 Total Bilirubin 0.6 mg/dL (0.15-1.2) 08/25/25 07:16 AST 20 U/L (0-32) 08/25/25 07:16 ALT 19 U/L (0-33) 08/25/25 07:16 Alkaline Phosphatase 63 U/L (35-105) 08/25/25 07:16 NT-Pro-B Natriuret Pep > 01644 pg/mL (0-450) H 08/25/25 07:16 Total Protein 6.6 g/dL (6.6-8.7) 08/25/25 07:16 Albumin 3.9 g/dL (3.5-5.2) 08/25/25 07:16 Globulin 2.7 g/dL (1.3-4.6) 08/25/25 07:16 Influenza A (PCR) Negative (Negative) 08/25/25 07:16 Influenza Type B (PCR) Negative (Negative) 08/25/25 07:16 RSV (PCR) Negative (Negative) 08/25/25 07:16 SARS-CoV-2 (PCR) Negative (Negative) 08/25/25 07:16 All radiology interpretation(s) finalized by discharge EKG Data EKG 1: I personally reviewed and interpreted this EKG as follows: EKG Interpretation Date: 08/25/25 EKG interpretation time: 07:12 Interpretation: ectopr atrial tach hr [address] elevation lbbb qrs 144 qtc 402 Critical Care Time Critical Care Time: Critical Care Time: Yes Total Critical Care Time: 40 Attestation: The high probability of a clinically significant, sudden or life threatening deterioration of the patient's resp system(s) required my full and direct attention, intervention and personal management. The critical care time is as shown. This time is in addition to time spent performing any reported procedures but includes the following: [x] Data and vital sign review and interpretation [x] Patient assessment, examination and intervention [x] Documentation [x] Medication orders and management Discharge Plan Discharge Patient Disposition: Admitted As Inpatient Clinical Impression: Chronic kidney disease (CKD), Congestive heart failure, Acute respiratory failure with hypoxia Condition: Stable Coding Level of Care Code ED Car Sealer for Will Collado
[2025-08-25] MEDS: methylPREDNISolone sod succ 125 mg/2 mL INJ IVP (07:22)
[2025-08-25 07:25] LABS: Hematocrit 29.6 % (36-47); Hemoglobin 9.20 g/dL (11.27-16.99); Mean Corpuscular HGB Conc 31.1 g/dL (30-55); Mean Corpuscular Hemoglobin 30.0 pg (27-33); Mean Corpuscular Volume 96.4 fl (85-98); Nucleated Red Blood Cells % 0 %; Platelet Count 260 10^3/cmm (157-399); Red Blood Count 3.07 10^6/uL (3.85-5.65); White Blood Count 11.90 10^3/uL (3.29-11.43)
[2025-08-25 07:54] LABS: Alanine Aminotransferase 19 U/L (0-33); Albumin Level 3.9 g/dL (3.5-5.2); Alkaline Phosphatase 63 U/L (35-105); Anion Gap 25.1 (5-19); Aspartate Amino Transferase 20 U/L (0-32); Blood Urea Nitrogen 37 mg/dL (8-23); Calcium 7.5 mg/dL (8.5-10.5); Carbon Dioxide 19 mmol/L (22-29); Chloride 101 mmol/L (98-107); Globulin 2.7 g/dL (1.3-4.6); Glucose 208 mg/dL (65-115); Osmolality Calculated 307 mOsm/kg (285-295); Potassium 4.1 mmol/L (3.5-5.1); Sodium 141 mmol/L (136-145); Total Protein 6.6 g/dL (6.6-8.7)
--- NOTE | 2025-08-25 08:09 | PC.NURSE ---
PATIENT STILL ON O2, COMPLAINING OF INABILITY TO BREATHE. NURSE INSTRUCTS PATIENT TO BREATHE IN THROUGH NOSE TO GET PROPER OXYGENATION AND THAT RT IS COMING TO PLACE PATIENT ON BIPAP.
[2025-08-25 08:23] LABS: Respiratory Syncytial Virus Ce NEGATIVE (Negative); SARS-CoV-2 PCR NEGATIVE (Negative)
[2025-08-25 08:26] LABS: ABG PCO2 46.7 mmHg (35-45); ABG PH Result 7.24 (7.35-7.45); Alveolar-Arterial Oxygen Gradi 26.1 mmHg (5-10); Arterial Blood Gas Hematocrit 31.2 % (37-47); Blood Gas Allen Test Pos; Blood Gas LPM 6.0 %; Blood Gas Operator Identificat AMH; Blood Gas Sample Site Radial, left; Blood Gas Sample Type Arterial; Carboxyhemoglobin 0.7 %THgb (0.4-20.1); Glucose Level-ABG 272.0 mg/dL (70-115); HCO3 ABG 19.9 mmol/L (22-26); Ionized Calcium Level - ABG 1.0 mmol/L (1.1-1.4); Methemoglobin 1.0 % (0.4-1.5); Oxygen Saturation ABG 85.4; PO2 ABG 57.5 mmHg (80.0-100.0); PO2 FiO2 Ratio Arterial Blood 130; Potassium Level - ABG 4.0 mmol/L (3.5-5.0); Sodium Level - ABG 139.0 mmol/L (131-143)
[2025-08-25 08:28] LABS: NT Pro B Type Natriuretic Pept > 70000 pg/mL (0-450)
[2025-08-25] MEDS: cefTRIAXone 1,000 mg SDV 1000 MG IVP (09:22)
[2025-08-25 10:50] LABS: Hematocrit 28.7 % (36-47); Hemoglobin 8.80 g/dL (11.27-16.99); Mean Corpuscular HGB Conc 30.7 g/dL (30-55); Mean Corpuscular Hemoglobin 29.5 pg (27-33); Mean Corpuscular Volume 96.3 fl (85-98); Nucleated Red Blood Cells % 0 %; Platelet Count 208 10^3/cmm (157-399); Red Blood Count 2.98 10^6/uL (3.85-5.65); White Blood Count 13.51 10^3/uL (3.29-11.43)
[2025-08-25] MEDS: pantoprazole 40 mg SDV IVP (11:03)
[2025-08-25 11:10] LABS: Magnesium 1.8 mg/dL (1.7-2.3)
[2025-08-25 11:14] LABS: Estmated Average Glucose 103; Hemoglobin A1C 5.2 % (4.0-6.0)
--- NOTE | 2025-08-25 13:21 | PC.NURSE ---
PATIENT SON GAVE CYCLOSPORINE TO THIS NURSE DUE TO NON-FORMULARY MEDICATION. THIS NURSE DELIVERED MED TO PHARMACY AND PIERO REPORTED HE WOULD GET MEDICATION TO CSU.
--- NOTE | 2025-08-25 13:35 | PC.NURSE ---
Patient transferred to CSU from ED via a bed at 1310.
[2025-08-25] MEDS: FUROsemide 10 mg/mL SDV 4mL 40 MG IVP (14:03)
--- NOTE | 2025-08-25 15:03 | PM.HP ---
Providers/Chief Complaint Admitting Physician: Darrian Lau MD Primary Care Provider: NICCI Nobles Chief Complaint: SOB High BP wheezing History of Present Illness Blanca Anguiano is a 75 year old female with prior medical history of CKD, COPD, HTN, CHF, LBBB, pericardial effusions, pleural effusions, secondhand smoke exposure, cardiomegaly, atelectasis, falls, thyroidectomy, and kidney transplant (1997) on long-term antibiotic/steroids presenting with complaints of shortness of breath. Patient reports that in the 0600 hour this morning she was short of breath and noted her saturations to be at 78% despite being on home oxygen 2L. Her blood pressure was also elevated 157 systolic. Patient has history of kidney transplant and is compliant on her long-term antibiotic and steroids. She endorses bilateral leg swelling that has actually improved but still has pitting edema. Reports that the swelling goes from her feet to her knees. She does follow with PCP, cardiology, and renal outpatient. She came to [facility] ED for assessment. Will admit to the hospitalist service for further evaluation and treatment. Family at bedside. BP 156/81, T98.0, HR 101, RR 28, O2 90 on 5L O2. WBC 13.51, Hgb 8.80, PLT 208. pH 7.24, pCO2 46.7, pO2 57.5, HCO3 19.9. Glucose 272. BUN 37, creatinine 2.9. Calcium 7.5 BNP> 66936 up from 27 437 08/11/2025. CXR; cardiac enlargement with signs of CHF, bilateral pulmonary infiltrates which might indicate superimposed pneumonia, masslike density at the right hilum. EKG; atrial tach, HR 102, no ST elevation, LBBB, QRS 144, QTc 402. Review of Systems Const: Reports: fatigue Card: Reports: edema, swelling of feet/ankles and dyspnea on exertion Resp: Reports: dyspnea Medications/Allergies Home Medications ?Medication ?Instructions ?Recorded ?Confirmed ?Last Taken ?Type atorvastatin 20 mg tablet 20 mg PO DAILY 08/26/22 08/25/25 08/24/25 History cyclosporine modified 25 mg capsule 25 mg PO BID 08/26/22 08/25/25 08/24/25 History metoprolol tartrate 100 mg tablet 100 mg PO BID 08/26/22 08/25/25 08/24/25 History prednisone 10 mg tablet 10 mg PO EVERY OTHER DAY 08/26/22 08/25/25 08/24/25 History vit C 250 mg-vit E 90 mg-zinc 40 1 tab PO DAILY 08/26/22 08/25/25 08/24/25 History mg-copper 1 iy-yehlvw-skcloo capsule (PreserVision AREDS-2) albuterol sulfate 90 mcg/actuation 1 puff inhalation Q6H PRN 08/28/22 08/25/25 Unknown Rx aerosol inhaler Shortness Of Breath #6 grams ascorbic acid (vitamin C) 500 mg See Rx Instructions .Route .COMPLEX 09/30/23 08/25/25 08/23/25 History capsule,extended release calcitriol 0.25 mcg capsule See Rx Instructions .Route .COMPLEX 09/30/23 08/25/25 08/24/25 History ferrous gluconate 324 mg (37.5 mg 324 mg PO DAILY 03/23/25 08/25/25 08/24/25 History iron) tablet furosemide 20 mg tablet 20 mg PO DAILY 03/23/25 08/25/25 08/24/25 History amlodipine 2.5 mg tablet 2.5 mg PO BEDTIME 08/25/25 08/25/25 Unknown History calcium 500 mg (as 1 tab PO BID 08/25/25 08/25/25 08/24/25 19:00 History carbonate)-vitamin D3 10 mcg (400 unit) tablet (Calcium 500 With D) lidocaine 4 % topical patch 1 patch topical DAILY PRN Pain 08/25/25 08/25/25 Unknown History (Salonpas (lidocaine)) peg 400-propylene glycol 0.4 %-0.3 1 drp ophthalmic (eye) DAILY PRN 08/25/25 08/25/25 08/24/25 20:00 History % eye drops (Systane (propylene Dry Eyes glycol)) Allergies Allergy/AdvReac Type Severity Reaction Status Date / Time Iodinated Contrast Media Allergy Mild Unknown Verified 05/24/25 13:21 PFSH Acute PFSH: Medical History (Updated 08/25/25 @ 08:41 by Peyton Hassan MD) Chronic kidney disease (CKD) Pericardial effusion Left bundle branch block Emphysema/COPD Pulmonary edema Pleural effusion, bilateral Heart failure HTN (hypertension) Surgical History History of kidney transplant H/O thyroidectomy Family History Other CAD (coronary artery disease) Social History Smoking and tobacco/nicotine status: never used tobacco/nicotine Second hand smoke exposure: Yes Vitals/I&O/Wt Last Vital Signs Temp 98.2 F 08/25/25 13:12 Pulse 86 08/25/25 13:12 Resp 22 H 08/25/25 13:12 BP 125/80 08/25/25 13:12 Pulse Ox 96 08/25/25 13:12 O2 Del Method Nasal Cannula 08/25/25 13:42 O2 Flow Rate 5 08/25/25 07:22 FiO2 50 08/25/25 12:04 Weight last 48 hrs Weight 38.555 kg Physical Exam Narrative: Patient is clinically stable does not look fluid overloaded Diminished breath sounds at bases Abdomen soft Mild crackles on lung auscultation Clinically patient does not look fluid overloaded Awake and alert HENMT: GENERAL EAR: hearing grossly impaired Eye: COMMON NORMALS: Equal, round and reactive pupils present and EOMs intact bilaterally Neck/C-Spine: COMMON NORMALS: no lymphadenopathy Lymph: LYMPHATIC: no lymphadenopathy noted Chest: COMMONS NORMALS: normal inspection of the chest Resp: EFFORT & INSPECTION: Yes abnormal respiratory pattern, Yes tachypneic and Yes decreased respiratory effort AUSCULTATION: crackles Cardio: COMMON NORMALS: no JVD, S1 normal heart sound present and S2 normal heart sound present GI: INSPECTION: Yes normal to inspection Neuro: COMMON NORMALS: patient oriented x3 and moves all extremities Psych: COMMON NORMALS: mental status grossly normal, cooperative and normal affect Data 08/25/25 10:37 08/25/25 07:16 A&P Assessment and plan 1. Acute respiratory failure with hypoxia: O2 reading at home 78%, at this facility 90 on 5 LpH 7.24, pCO2 46.7, pO2 57.5, HCO3 19.9 Respiratory panel RT Pulse oximetry Supplemental O2 to keep saturations greater than 92% BiPAP 2. Congestive heart failure: CXR; cardiac enlargement with signs of CHF, bilateral pulmonary infiltrates which might indicate superimposed pneumonia, masslike density at the right hilum EKG; atrial tach, HR 102, no ST elevation, LBBB, QRS 144, QTc 402 BNP> [id number] up from [id number] 08/11/2025 Monitor CMP and BNP Lasix increased Telemetry 3. History of kidney transplant: Performed in 1997 Patient is on long-term cyclosporine and steroids Follows renal team outpatient, Dr. Stephanie Manley PCP [facility] 4. HTN (hypertension): BP at this facility 156/81, HR 101 Continue home metoprolol 5. Chronic kidney disease (CKD): BUN 37, creatinine 2.9 Avoid nephrotoxic agents On Lasix 20mg at home, hold for now, increase to 40 mg and monitor potassium Last potassium reading 4.0, stable Urine studies Urinalysis Monitor CMP Renal diet PDMP PDMP Reviewed: Not Reviewed Attestations Medical Necessity Statement*: Admission for greater than two midnights is necessary for acute respiratory failure with hypoxia with o2 in the 70s and CHF workup and treatment. Coding Level [facility] Care Code [facility] Diagn[facility] Acute respiratory failure with hypoxia J96.01 Congestive heart failure I50.9 History of kidney transplant Z94.0 HTN (hypertension) I10 Chronic kidney disease (CKD) N18.9
[2025-08-25 16:25] LABS: Glucose Urine UA Negative (Normal); Nitrate Urine Negative (Negative); Specific Gravity, Urine 1.011 (1.005-1.030)
[2025-08-25 16:32] LABS: Add Urine Microscopic? YES
[2025-08-25 16:51] LABS: Coronavirus 229E,HKU1,NL63,OC4 Not Detected (NOT DETECT); Parainfluenza Virus Type 1 Not Detected (NOT DETECT); Parainfluenza Virus Type 2 Not Detected (NOT DETECT); Parainfluenza Virus Type 3 Not Detected (NOT DETECT); Parainfluenza Virus Type 4 Not Detected (NOT DETECT); SARS-COV-2 Not Detected (NOT DETECT)
[2025-08-25 17:11] LABS: UA Slide Review UA Slide Review Perf
[2025-08-25 17:17] LABS: Potassium, Radom Urine 28 mmol/L; Urine Random Chloride 73 mmol/L; Urine Random Sodium 77 mmol/L
--- NOTE | 2025-08-25 17:26 | PC.NURSE ---
Provider is updated that she has amlodipine 5 mg PO at bedtime. She said that her kidney doctor, Stephanie Manley, took her off of her amlodipine over a week ago. Provider said that she will discontinue it.
[2025-08-25] MEDS: ondansetron 2 mg/ML SDV 2 mL 4 MG IVP (18:00)
--- NOTE | 2025-08-25 18:43 | PC.NURSE ---
Addendum entered by Erika Farnsworth RN 08/25/25 18:54: Report is given to nurse at shift change and she will follow up with night doctor. Original Note: Provider is updated that she is anxious about her O2 level. She is not happy unless she is not on the Bipap. So she is not eating. Can we try something low dose for anxiety? She is only 90-100 pounds.
[2025-08-25] MEDS: metoclopramide 5 mg/mL SDV 2 mL IVP (20:08)
[2025-08-25 20:14] LABS: ABG PCO2 35.3 mmHg (35-45); ABG PH Result 7.38 (7.35-7.45); Arterial Blood Gas Hematocrit 27.5 % (37-47); Blood Gas Allen Test Pos; Blood Gas Operator Identificat gerca; Blood Gas Sample Site Brachial, left; Blood Gas Sample Type Arterial; HCO3 ABG 20.6 mmol/L (22-26); PO2 ABG 67.4 mmHg (80.0-100.0)
[2025-08-25 20:15] LABS: PO2 FiO2 Ratio Arterial Blood 168
--- NOTE | 2025-08-25 21:20 | PC.NURSE ---
contacted MD about patient being really anx about not wearing the bipap, MD said let patient wear the bipap for the night
[2025-08-26] VITALS (50 sets, daily range): BP systolic 91–176; BP diastolic 50–100; PULSE 72–111; RESP 12–39; TEMP 36.4–37; O2SAT 88–100; BMI 15.9
[2025-08-26] MEDS: metoclopramide 5 mg/mL SDV 2 mL IVP ×2 (02:23→14:38)
[2025-08-26 04:49] LABS: Anion Gap 24.5 (5-19); Blood Urea Nitrogen 48 mg/dL (8-23); Calcium 7.3 mg/dL (8.5-10.5); Carbon Dioxide 20 mmol/L (22-29); Chloride 100 mmol/L (98-107); Glucose 164 mg/dL (65-115); Osmolality Calculated 304 mOsm/kg (285-295); Potassium 5.5 mmol/L (3.5-5.1); Sodium 139 mmol/L (136-145)
[2025-08-26 05:31] LABS: NT Pro B Type Natriuretic Pept > 70000 pg/mL (0-450)
[2025-08-26] MEDS: lactobacillus 1 Tablet 1 TAB PO (05:37)
[2025-08-26] MEDS: ATORVASTATIN 20 MG TABLET PO (05:37)
[2025-08-26] MEDS: b-complex-vitamin c Tablet 1 EACH PO (05:37)
--- NOTE | 2025-08-26 07:40 | P.PN_ITS ---
Subjective 2 Subjective: Patient is a very pleasant 75-year-old female seen and examined at bedside on hospital rounds today. Patient sitting up in bed with continued BiPAP in place, increased oxygen requirements, worsening creatinine 4.2, worsening hyperkalemia 5.8. Patient continues to have generalized weakness and shortness of breath, denies new symptoms. Given patient's history of renal transplant, consulted with nephrology who requested the patient be transferred to ICU and gave further interventional instructions. Spoke with patient and her son at the bedside, both agreeable to transferring to ICU. Dr. Will reached out to patient's journeyman operator assistant in [place] who stated that the patient may remain at this facility pending further workup. Vitals/I&O/Wt Last Vital Signs Temp 98.4 F 08/26/25 07:38 Pulse 90 08/26/25 07:38 Resp 15 08/26/25 07:38 BP 132/65 08/26/25 07:38 Pulse Ox 90 08/26/25 07:38 O2 Del Method BiPAP 08/26/25 07:38 O2 Flow Rate 4 08/25/25 15:21 FiO2 40 08/26/25 07:28 08/25/25 08/26/25 08/26/25 22:59 06:59 14:59 Intake Total 250 / 250 Output Total 50 / 50 Balance 200 / 200 Weight last 48 hrs Weight 42.1 kg Weight 45 kg Weight 38.555 kg Physical Exam 2 Narrative: Diminished breath sounds at bases, BiPap in place Abdomen soft Mild crackles on lung auscultation Awake and alert Const: COMMON NORMALS: patient oriented x3 HENMT: GENERAL EAR: hearing grossly impaired Eye: COMMON NORMALS: Equal, round and reactive pupils present and EOMs intact bilaterally PUPIL: Yes Equal, round and reactive pupils present Neck/C-Spine: COMMON NORMALS: no lymphadenopathy and no JVD Lymph: LYMPHATIC: no lymphadenopathy noted Chest: COMMONS NORMALS: normal inspection of the chest Resp: EFFORT & INSPECTION: Yes abnormal respiratory pattern, Yes tachypneic and Yes decreased respiratory effort AUSCULTATION: crackles Cardio: COMMON NORMALS: no JVD, S1 normal heart sound present and S2 normal heart sound present HEART SOUNDS: S1 normal heart sound present and S2 normal heart sound present GI: INSPECTION: Yes normal to inspection Neuro: COMMON NORMALS: patient oriented x3 and moves all extremities Psych: COMMON NORMALS: mental status grossly normal, cooperative and normal affect Data 08/26/25 03:53 08/26/25 13:25 A&P Assessment and plan 1. Acute respiratory failure with hypoxia: O2 reading at home 78%, at this facility 90 on 5 LpH 7.24, pCO2 46.7, pO2 57.5, HCO3 19.9 Repeat ABG 08/25: pH 7.38, pCO2 35.3, pO2 67.4 Respiratory panel RT Pulse oximetry BiPAP 2. Congestive heart failure: CXR; cardiac enlargement with signs of CHF, bilateral pulmonary infiltrates which might indicate superimposed pneumonia, masslike density at the right hilum EKG; atrial tach, HR 102, no ST elevation, LBBB, QRS 144, QTc 402 BNP> 80090 up from [id number] 08/11/2025 Monitor CMP and BNP Lasix increased, [place] Telemetry 3. History of kidney transplant: Performed in 1997 Patient is on long-term cyclosporine and steroids Follows renal team outpatient, Dr. Stephanie Manley [facility] 4. HTN (hypertension): BP at this facility 156/81, HR 101 Continue home metoprolol 5. Chronic kidney disease (CKD): BUN 37, creatinine 2.9 on admission repeat now BUN 50, creatinine 4.2 Avoid nephrotoxic agents Management per journeyman operator assistant Urine studies Urinalysis Monitor CMP Renal diet 6. Hyperkalemia: Potassium 5.8 Given bicarb 2 A, calcium gluconate 1 g Further management per nephrology 7. Pneumonia: Continue respiratory interventions with scheduled and as needed DuoNeb, Pulmicort BiPAP IV antibiotics changed from Rocephin and doxycycline to Vanco and Zosyn per attending, given concern for infection combined with patient on antirejection medication for renal transplant Plan: 08/26/2025 Patient transferring from CSU to ICU per journeyman operator assistant . to assume care of patient in ICU. Further workup with repeat urinalysis, culture, BUN/creatinine ratio, repeat blood culture x 2. Further workup and management per . PDMP PDMP Reviewed: Not Reviewed Attestations 2 Medical Necessity Statement*: Admission for greater than two midnights is necessary for acute respiratory failure with hypoxia with o2 in the 70s and CHF workup and treatment, CIRILO/Renal failure with hx of renal transplant, pneumonia. Coding Level of Care Code 40815 Diagnoses Acute respiratory failure with hypoxia J96.01 Congestive heart failure I50.9 History of kidney transplant Z94.0 HTN (hypertension) I10 Chronic kidney disease (CKD) N18.9 Hyperkalemia E87.5 Pneumonia J18.9
[2025-08-26 07:43] LABS: Hematocrit 29.3 % (36-47); Hemoglobin 9.10 g/dL (11.27-16.99); Mean Corpuscular HGB Conc 31.1 g/dL (30-55); Mean Corpuscular Hemoglobin 30.2 pg (27-33); Mean Corpuscular Volume 97.3 fl (85-98); Nucleated Red Blood Cells % 0 %; Platelet Count 265 10^3/cmm (157-399); Red Blood Count 3.01 10^6/uL (3.85-5.65); White Blood Count 12.34 10^3/uL (3.29-11.43)
[2025-08-26 08:24] LABS: Alanine Aminotransferase 22 U/L (0-33); Albumin Level 3.6 g/dL (3.5-5.2); Alkaline Phosphatase 60 U/L (35-105); Anion Gap 25.8 (5-19); Aspartate Amino Transferase 27 U/L (0-32); Blood Urea Nitrogen 50 mg/dL (8-23); Calcium 7.1 mg/dL (8.5-10.5); Carbon Dioxide 18 mmol/L (22-29); Chloride 102 mmol/L (98-107); Globulin 2.6 g/dL (1.3-4.6); Glucose 174 mg/dL (65-115); Magnesium 2.1 mg/dL (1.7-2.3); Osmolality Calculated 308 mOsm/kg (285-295); Potassium 5.8 mmol/L (3.5-5.1); Sodium 140 mmol/L (136-145); Total Protein 6.2 g/dL (6.6-8.7)
[2025-08-26] MEDS: cefTRIAXone 1,000 mg SDV 1000 MG IVP (08:53)
[2025-08-26] MEDS: doxycycline 100 MG in sodium chloride 0.9% (plus) 100 ML IV (08:53)
--- NOTE | 2025-08-26 10:44 | USR_ITS ---
PROCEDURE INFORMATION: Exam: US Retroperitoneal, Complete, Kidneys and Bladder Exam date and time: 08/26/2025 4:27 PM Age: 75 years old Clinical indication: CIRILO, transplant kidney TECHNIQUE: Imaging protocol: Real-time ultrasound of the retroperitoneum with image documentation. Complete exam focused on the bilateral kidneys and urinary bladder. COMPARISON: 1. US renal BI* [id number] 08/28/2022 6:24 AM 2. FINDINGS: 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 The left robinson kidney is not identified. Left lower quadrant transplant kidney: No hydronephrosis. Multiple renal cysts, the largest measuring 3.7 x 1.9 x 3.0 cm. There is an anechoic, multiseptated collection located between the renal transplant in the bladder. There are no cine sweep images through this, however it does not appear to be definitely tubular. Urinary bladder: The bladder is decompressed around a catheter. US/US renal BI* [id number] IMPRESSION: 1. Anechoic, multiseptated fluid collection between the transplant kidney and the bladder. Appearance favors a peritransplant fluid collection versus less likely a dilated ureter. Exam is limited without any cine sweep images through this region to confirm configuration. Recommend correlation with timing of transplant history and prior imaging posttransplant if available. 2. No hydronephrosis within the transplant kidney.
--- NOTE | 2025-08-26 10:55 | PC.NURSE ---
Report called to Tanya< RN in ICU.
[2025-08-26] MEDS: calcium gluconate 0.1 gm/mL 10% SDV 10mL 1 GM IVP (11:22)
[2025-08-26] MEDS: methylPREDNISolone sod succ 40 mg/mL INJ IVP ×3 (11:27→21:39)
[2025-08-26] MEDS: pantoprazole 40 mg SDV IVP (11:35)
--- NOTE | 2025-08-26 11:36 | PC.SOCIAL ---
IMM Update pg 2 of IMM updated and reviewed w/ patient. Copy provided and copy dated, initialed and placed in chart.
[2025-08-26] MEDS: FUROsemide 10 mg/mL SDV 10mL 80 MG IVP ×2 (11:45→21:39)
[2025-08-26] MEDS: albumin 25 G/100 ML BAG 60 G IV (11:53)
[2025-08-26 12:50] LABS: Glucose Urine UA Negative (Normal); Nitrate Urine Negative (Negative); Specific Gravity, Urine 1.012 (1.005-1.030)
[2025-08-26 12:55] LABS: Add Urine Microscopic? YES
[2025-08-26 13:10] LABS: UA Slide Review UA Slide Review Perf
[2025-08-26 13:15] LABS: Potassium, Radom Urine 55 mmol/L; Urine Random Chloride 50 mmol/L; Urine Random Sodium 50 mmol/L
[2025-08-26 13:20] LABS: Creatinine Urine, Random 94 mg/dL (28-217)
[2025-08-26 13:22] LABS: Microalbum Creatinine Ratio Ur 149 mg/dL (0-20)
[2025-08-26 13:30] LABS: Hepatitis B Surface Antigen Non-Reactive (Nonreactive)
--- NOTE | 2025-08-26 13:35 | PM.CONSULT ---
Providers/Reason For Consult Consulting Physician/Specialty*: [facility]/Nephrology Reason for Consult*: CKD 5 Attending Physician: June Dowell NP Primary Care Provider: NICCI Nobles History of Present Illness History of Present Illness Blanca Anguiano is a 75 year old female Patient is a 75-year-old female with past medical history of COPD, hypertension, CHF, COPD, history of renal transplant in 1997 followed by [facility] Dr. Manley. Patient on cyclosporine and prednisone for immunosuppression. She presented to the emergency department complaining of progressively worsening shortness of breath and was noted to be hypoxic. BNP was elevated at more than 70,000, creatinine was 2.9 on presentation worsened to 4.2 currently. Patient became oliguric and has not responded to high-dose diuretics. Chest x-ray has showed cardiac enlargement with bilateral pulmonary infiltrates. Medications/Allergies Home Medications ?Medication ?Instructions ?Recorded ?Confirmed ?Last Taken ?Type atorvastatin 20 mg tablet 20 mg PO DAILY 08/26/22 08/25/25 08/24/25 History cyclosporine modified 25 mg capsule 25 mg PO BID 08/26/22 08/25/25 08/24/25 History metoprolol tartrate 100 mg tablet 100 mg PO BID 08/26/22 08/25/25 08/24/25 History prednisone 10 mg tablet 10 mg PO EVERY OTHER DAY 08/26/22 08/25/25 08/24/25 History vit C 250 mg-vit E 90 mg-zinc 40 1 tab PO DAILY 08/26/22 08/25/25 08/24/25 History mg-copper 1 yt-[id number]-tdojip capsule (PreserVision AREDS-2) albuterol sulfate 90 mcg/actuation 1 puff inhalation Q6H PRN 08/28/22 08/25/25 Unknown Rx aerosol inhaler Shortness Of Breath #6 grams ascorbic acid (vitamin C) 500 mg See Rx Instructions .Route .COMPLEX 09/30/23 08/25/25 08/23/25 History capsule,extended release calcitriol 0.25 mcg capsule See Rx Instructions .Route .COMPLEX 09/30/23 08/25/25 08/24/25 History ferrous gluconate 324 mg (37.5 mg 324 mg PO DAILY 03/23/25 08/25/25 08/24/25 History iron) tablet furosemide 20 mg tablet 20 mg PO DAILY 03/23/25 08/25/25 08/24/25 History amlodipine 2.5 mg tablet 2.5 mg PO BEDTIME 08/25/25 08/25/25 Unknown History calcium 500 mg (as 1 tab PO BID 08/25/25 08/25/25 08/24/25 19:00 History carbonate)-vitamin D3 10 mcg (400 unit) tablet (Calcium 500 With D) lidocaine 4 % topical patch 1 patch topical DAILY PRN Pain 08/25/25 08/25/25 Unknown History (Salonpas (lidocaine)) peg 400-propylene glycol 0.4 %-0.3 1 drp ophthalmic (eye) DAILY PRN 08/25/25 08/25/25 08/24/25 20:00 History % eye drops (Systane (propylene Dry Eyes glycol)) Allergies Allergy/AdvReac Type Severity Reaction Status Date / Time Iodinated Contrast Media Allergy Mild Unknown Verified 05/24/25 13:21 Current Medications Generic Name Dose Route Start Last Admin Trade Name Freq PRN Reason Stop Dose Admin Albuterol Sulfate 2.5 mg 08/25/25 12:10 08/26/25 07:27 Albuterol 2.5 Mg/3 Ml Neb INHALATION 2.5 mg Q6H PRN Administration SHORTNESS OF BREATH Albuterol/Ipratropium 3 ml 08/26/25 08:00 08/26/25 07:47 Ipratropium-Albuterol 3 Ml Neb INHALATION 3 ml Q6H.RESP MARANDA Administration Ascorbic Acid 500 mg 08/26/25 05:00 08/26/25 05:37 Ascorbic Acid 500 Mg Tablet PO 500 mg DAILY MARANDA Administration Atorvastatin Calcium 20 mg 08/26/25 05:00 08/26/25 05:37 Atorvastatin 20 Mg Tablet PO 20 mg DAILY MARANDA Administration Budesonide 0.25 mg 08/26/25 08:00 08/26/25 07:47 Budesonide 0.5 Mg/2 Ml Neb INHALATION 0.25 mg BID.RESPIRATORY MARANDA Administration Calcitriol 0.25 mcg 08/26/25 09:00 08/26/25 08:53 Calcitriol 0.25 Mcg Capsule PO 0.25 mcg MoWeFr MARANDA Administration Ferrous Gluconate 324 mg 08/26/25 05:00 08/26/25 05:37 Ferrous Gluconate 324 Mg Tablet PO 324 mg DAILY MARANDA Administration Furosemide 80 mg 08/26/25 10:45 08/26/25 11:45 Furosemide 10 Mg/Ml Sdv 10ml IVP 80 mg Q12H MARANDA Administration Albumin Human 25 g in 100 mls @ 60 mls/hr 08/26/25 10:30 08/26/25 12:17 Albumin IV 0 mls/hr Q8H MARANDA Infusion Lactobacillus Acidophilus 1 tab 08/26/25 05:00 08/26/25 05:37 Lactobacillus 1 Tablet PO 1 tab DAILY MARANDA Administration Methylprednisolone Sodium Succinate 40 mg 08/26/25 10:15 08/26/25 11:27 Methylprednisolone Sod Succ 40 Mg/Ml Inj IVP 40 mg Q6H MARANDA Administration Metoclopramide HCl 5 mg 08/25/25 19:59 08/26/25 02:23 Metoclopramide 5 Mg/Ml Sdv 2 Ml IVP 5 mg Q6H PRN Administration NAUSEA AND VOMITING Metoprolol Tartrate 100 mg 08/25/25 17:00 08/26/25 05:37 Metoprolol Tartrate 50 Mg Tablet PO 100 mg BID MARANDA Administration Multivitamins 1 each 08/26/25 05:00 08/26/25 05:37 A-Xldtpkc-Iqvnlwg C Tablet PO 1 each DAILY MARANDA Administration Non-Formulary Medication 25 mg 08/25/25 14:45 08/26/25 11:37 Cyclosporine Modified PO 25 mg BID@1000,2200 MARANDA Administration Ondansetron HCl 4 mg 08/25/25 10:19 08/25/25 18:00 Ondansetron 2 Mg/Ml Sdv 2 Ml IVP 4 mg Q8H PRN Administration vomiting, or N/V if npo Pantoprazole Sodium 40 mg 08/25/25 10:30 08/26/25 11:35 Pantoprazole 40 Mg Sdv IVP 40 mg Q24H MARANDA Administration PFSH Acute PFSH: Medical History (Updated 08/26/25 @ 13:39 by Lisandra Will MD) Chronic kidney disease (CKD) Pericardial effusion Left bundle branch block Emphysema/COPD Pulmonary edema Pleural effusion, bilateral Heart failure HTN (hypertension) Surgical History History of kidney transplant H/O thyroidectomy Family History Other CAD (coronary artery disease) Social History Smoking and tobacco/nicotine status: never used tobacco/nicotine Second hand smoke exposure: Yes Vitals/I&O/Wt Last Vital Signs Temp 98.4 F 08/26/25 07:38 Pulse 90 08/26/25 11:15 Resp 15 08/26/25 07:38 BP 132/65 08/26/25 07:38 Pulse Ox 96 08/26/25 11:15 O2 Del Method BiPAP 08/26/25 07:38 O2 Flow Rate 4 08/25/25 15:21 FiO2 45 08/26/25 11:15 08/25/25 08/26/25 08/26/25 22:59 06:59 14:59 Intake Total 250 / 250 119.833 / 119.833 Output Total 50 / 50 75 / 75 Balance 200 / 200 44.833 / 44.833 Weight last 48 hrs Weight 42.1 kg Weight 45 kg Weight 38.555 kg Physical Exam Narrative: Patient is awake alert, no acute distress, frail PERRLA S1-S2 regular rate and rhythm Lungs with bilateral crackles, on BiPAP Abdomen soft nontender Extremities has edema Skin no rash Urinary Catheter Management: Poole: Cath Placed During This Visit: yes Urinary Catheter Date of Insertion: 08/26/25 Urinary Catheter Time of Insertion: 12:25 Data 08/26/25 03:53 08/26/25 07:45 A&P Assessment and plan 1. Rfceo-cx-chxfasv kidney injury: 1. Acute on chronic kidney disease stage IV: Baseline creatinine in the 3 range, current CIRILO likely cardiorenal. - Patient has not responded to high-dose diuretics, and is in respiratory distress and volume overloaded. - Discussed with patient's forestry professor Dr. Manley via phone, who agrees patient has progressively declining renal function with volume overload issues, agrees she should initiate dialysis. - Patient has AVF placed about 15 years ago, and will initiate HD today. 2. Acute on chronic respiratory failure: Hypoxic on presentation, multifactorial with a history of COPD and CHF - UF as tolerated with dialysis 3. Hyperkalemia: Low K diet and HD as above 4. Metabolic acidosis: In the setting of worsening renal function, should improve with HD 5. Status post renal transplant in 1997: Currently on cyclosporine and prednisone for immunosuppression , should continue immunosuppression and need to be slowly tapered off as outpatient over the period of next few months to prevent acute rejection. Patient evaluated using audiovisual cart. Time spent 40 minutes. Patient son at bedside and discussed with him. Patient consented for initiation of HD. P PDMP PDMP Reviewed: Not Reviewed Consult Attestations Medical Necessity Statement: Per medicine team Coding Level of Care Code Acute Code for g Fwd Diagnoses [id number]-gj-ispqgpl kidney injury N17.9; N18.9
[2025-08-26 13:54] LABS: Urine Eosinophil Count 0 (0-0)
[2025-08-26 14:09] LABS: Blood Urea Nitrogen 56 mg/dL (8-23); Calcium 7.5 mg/dL (8.5-10.5); Carbon Dioxide 15 mmol/L (22-29); Chloride 102 mmol/L (98-107); Glucose 120 mg/dL (65-115); Osmolality Calculated 309 mOsm/kg (285-295); Sodium 141 mmol/L (136-145)
[2025-08-26 14:10] LABS: Anion Gap 29.3 (5-19); Potassium 5.3 mmol/L (3.5-5.1)
[2025-08-26] MEDS: piperacillin-tazobactam 3.375 GM in sodium chloride 0.9% (plus) 50 ML IV (17:16)
--- NOTE | 2025-08-26 17:49 | PC.HD ---
Appx 50 minutes into dialysis treatment, pt's BP 91/50, pt asymptomatic. UF off and machine temp decreased to 35.0C. BP rechecked, 74/41, albumin was hung pre-treatment per ADMISSION NURSE COORDINATOR and still infusing, HOB lowered. ADMISSION NURSE COORDINATOR says pt does not have an IV good enough to run Levophed through. BP recchecked again, down to 52/36. Dr Nicolette em, instructed to terminate treatment. Hospitalist manav concurrently by ADMISSION NURSE COORDINATOR. Treatment terminated and blood returned, BP after blood returned, 151/77.
--- NOTE | 2025-08-26 18:34 | PC.NURSE ---
1107 - Admitted to ICU from [facility]. Bipap at 40%, when taking off bipap patients becomes very short of breath and O2 saturations decrease to 70's and 80's. 22 Gauge IV to left upper arm, very positional but able to give some medications as ordered. IV start attempts per 2 nurses multiple times, 20 gauge to left forearm obtained. 1145 -- 22 gauge IV to left upper arm infiltrated. IV to left forearm working. 1217 -- IV to left forearms infiltrated, vancomycin stopped. Attempted multiple IV starts without success. IVs infiltrate easily. Notified Dr. Lau of patient not having IV access with inability to obtain IV access. Order obtained to get a PICC line placed. Notified melt house supervisor of need for picc line. 1304 -- Notified railroad car repair supervisor that I had not heard from anybody regarding PICC line placement. Sales Enablement Manager states that she has messages out to everybody and is awaiting a call back from them. 1314 -- Nursing railroad car repair supervisor notified this nurse that there is no one available from the PICC team to place a central line. Notified Dr. Lau that there is not anyone available to place a PICC line and would it be possible to place to get a central line placed on this patient. Dr. Lau states I will come down and assess the patient. 1430-- Dr. Lau states that the risks do not outweigh the benefits and he will not put a central line in this patient. Explained to Dr. Lau that we do not have any access on this patient to give IV medications. Dr. Lau states that I will talk to melt house supervisor. 1436 -- 18 gauge IV inserted using ultrasound by marily JANG. Medications resumed as ordered.
--- NOTE | 2025-08-26 19:21 | PC.NURSE ---
while running hemodyialysis blood pressure decreased to 91/50, Radha stopped pulling fluids. Blood pressure further decreased to 74/41, Albumin infusing. Blood pressure decreased to 52/36, blood returned per SUHAIL Garcia and Dr. Fox notified with orders to stop HD. Notified Dr. Lau of blood pressure trend and having to stop HD. No further orders given.
[2025-08-26] MEDS: ondansetron 2 mg/ML SDV 2 mL 4 MG IVP (22:55)
[2025-08-27] VITALS (68 sets, daily range): BP systolic 61–170; BP diastolic 40–120; PULSE 90–117; RESP 17–35; TEMP 36.1–36.8; O2SAT 73–100
[2025-08-27] MEDS: albumin 25 G/100 ML BAG 60 G IV (00:14)
[2025-08-27 01:29] LABS: Anion Gap 27.2 (5-19); Blood Urea Nitrogen 50 mg/dL (8-23); Calcium 7.3 mg/dL (8.5-10.5); Carbon Dioxide 20 mmol/L (22-29); Chloride 101 mmol/L (98-107); Glucose 154 mg/dL (65-115); Osmolality Calculated 312 mOsm/kg (285-295); Potassium 5.2 mmol/L (3.5-5.1); Sodium 143 mmol/L (136-145)
--- NOTE | 2025-08-27 03:29 | XRR_ITS ---
PROCEDURE INFORMATION: Exam: XR Chest Exam date and time: 08/27/2025 4:32 AM Age: 75 years old Clinical indication: Shortness of breath; Prior surgery; Surgery date: 6+ months; Surgery type: Thyroidectomy. Renal transplant; Worsening SOB. Wearing bipap. History of copd. TECHNIQUE: Imaging protocol: Radiologic exam of the chest. Views: 1 view. COMPARISON: CR XR chest 1V portable [id number] 08/25/2025 7:27 AM FINDINGS: Lungs: Extensive bilateral airspace consolidations, consistent with severe multilobar pneumonia. Pleural spaces: Small bilateral pleural effusions. Correlate for superimposed congestive heart failure. No pneumothorax. Heart/Mediastinum: Cardiomegaly. Bones/joints: Unremarkable. XR/XR chest 1V portable [id number] IMPRESSION: 1. Extensive bilateral airspace consolidations, consistent with severe multilobar pneumonia. 2. Small bilateral pleural effusions. Correlate for superimposed congestive heart failure.
[2025-08-27] MEDS: FUROsemide 10 mg/mL SDV 10mL 80 MG IVP (03:44)
[2025-08-27] MEDS: methylPREDNISolone sod succ 40 mg/mL INJ IVP ×2 (04:00→10:38)
[2025-08-27 04:04] LABS: ABG PCO2 39.5 mmHg (35-45); ABG PH Result 7.27 (7.35-7.45); Alveolar-Arterial Oxygen Gradi 39.6 mmHg (5-10); Arterial Blood Gas Hematocrit 33.9 % (37-47); Blood Gas Operator Identificat SAM; Blood Gas Sample Site Brachial, left; Blood Gas Sample Type Arterial; Carboxyhemoglobin 0.9 %THgb (0.4-20.1); Glucose Level-ABG 121.0 mg/dL (70-115); HCO3 ABG 18.2 mmol/L (22-26); Ionized Calcium Level - ABG 0.9 mmol/L (1.1-1.4); Methemoglobin 0.0 % (0.4-1.5); Oxygen Saturation ABG 92.3; PO2 ABG 71.1 mmHg (80.0-100.0); PO2 FiO2 Ratio Arterial Blood 118; Potassium Level - ABG 4.8 mmol/L (3.5-5.0); Sodium Level - ABG 144.0 mmol/L (131-143)
--- NOTE | 2025-08-27 04:31 | XRR_ITS ---
PROCEDURE INFORMATION: Exam: XR Chest Exam date and time: 08/27/2025 5:34 AM Age: 75 years old Clinical indication: Other vascular access device placement or adjustment; Central line, non-tunnelled; Prior surgery; Surgery date: 6+ months; Surgery type: Thyroidectomy. Renal transplant; Check S/P central line placement; Additional info: Confirm central line placement TECHNIQUE: Imaging protocol: Radiologic exam of the chest. Views: 1 view. COMPARISON: CR (CHEST, ) 08/27/2025 4:32 AM FINDINGS: Tubes, catheters and devices: Central line tip terminates in the cavoatrial junction. Lungs: Airspace consolidation about both ciro and within lung apices may represent pulmonary edema pattern versus pneumonia. Pleural spaces: Unremarkable. No pleural effusion. No pneumothorax. Heart/Mediastinum: There is severe cardiomegaly with vascular congestion. Bones/joints: Unremarkable. XR/XR chest 1V portable [id number] IMPRESSION: 1. Central line tip terminates in the cavoatrial junction. 2. Severe cardiomegaly with vascular congestion. 3. Airspace consolidation about both ciro and within lung apices may represent pulmonary edema pattern versus pneumonia.
--- NOTE | 2025-08-27 05:15 | PM.CCNAC ---
Critical Care Event Note The high probability of a clinically significant, sudden or life threatening deterioration of the patient's [] system(s) required my full and direct attention, intervention and personal management. The critical care time is as shown. This time is in addition to time spent performing any reported procedures but includes the following: [x] Data and vital sign review and interpretation [x] Patient assessment, examination and intervention [x] Documentation [x] Medication orders and management Critical Care Time Code activated: No Critical Care Time (min): 35 Additional information about critical care time: - Nursing staff reported that Blanca was in acute respiratory distress early this morning around 4 AM - Arrived to see patient - She is alert oriented x 3, follows all commands, in moderate respiratory distress, nasal flaring, intercostal retractions suprasternal retractions, diffuse crackles, she is normotensive, but heart rates in the 110s sinus tachycardia she is on 60% BiPAP, with O2 sats in the mid 90s - Patient's son is at bedside - Patient's son tells me that she had a history of renal transplant in 1998, but in 2009 her kidney function deteriorated so they put in a dialysis fistula but she never received dialysis - The only time that she has received dialysis was yesterday - Nursing staff tell me that during dialysis her blood pressures dropped, thus dialysis had to be stopped, did not receive any blood pressure support due to concerns for poor vascular access -She only has 1 good IV in her left arm, she does not have any other vascular access -Per day team try to get vascular access however no vascular access was available and her dialysis was stopped short, - Discussed with son and patient - That she is in acute hypoxic respiratory failure - Multifactorial given her chest x-ray evidence of bilateral pulmonary edema, systolic and diastolic CHF exacerbation - With underlying COPD/emphysema exacerbation - I am also concerned for the possibility of bilateral pneumonia, she is on respiratory therapy -I am also concerned for the possibility of sepsis - Nonetheless she is on steroids, broad-spectrum antibiotic therapy - However her respiratory status continues to worsen - My suspicion is is that she has a component of acute respiratory distress syndrome and bilateral pulmonary edema - Discussed morbidity and mortality associated - Discussed Blanca's CODE STATUS with son at bedside - She wants to remain a full code - Discussed central line placement, discussed risk and benefits of central line placement, morbidity mortality associated, risk including but limited to infection, carotid vascular injury, strokes, - Patient and son voiced understanding, all questions answered, shared decision making, agreed to proceed - Patient was status post central line placement - Discussed with son and patient I will try dialysis on her early this morning, I consulted nephrology, dialysis nurse is here to do urgent dialysis on her - She will likely require Levophed during dialysis - Discussed morbidity and mortality associated with shock, Levophed, dialysis, patient and son voiced understanding, all questions answered, agreed to proceed - She was also given 80 of IV Lasix with metolazone - Urine output has been lackluster, at 651 - Discussed with patient and son that in the morning, will have the morning team reach out to her transplant team at [facility] for further direction given her elevated creatinine and her need for dialysis, given ultrasound findings US/US renal BI* [id number] IMPRESSION: 1. Anechoic, multiseptated fluid collection between the transplant kidney and the bladder. Appearance favors a peritransplant fluid collection versus less likely a dilated ureter. Exam is limited without any cine sweep images through this region to confirm configuration. Recommend correlation with timing of transplant history and prior imaging posttransplant if available. 2. No hydronephrosis within the transplant kidney. - Discussed with patient and son that she has a high risk of intubation in the next 24 hours, and morbidity and mortality associated, patient and son voiced understanding, all question answered, agreed to proceed she wants to remain full code - Initially I planned on putting her on a Lasix drip as I was concerned that there would be a delay in dialysis - However dialysis nurse arrived shortly after I had called, we will hold off on Lasix drip, until after dialysis -Discussed with son about doing a CT of the chest, when she is more clinically stable Coding Level of Care Code Acute Code for Chg Fwd
[2025-08-27] MEDS: lactobacillus 1 Tablet 1 TAB PO (05:19)
[2025-08-27] MEDS: b-complex-vitamin c Tablet 1 EACH PO (05:20)
[2025-08-27] MEDS: ATORVASTATIN 20 MG TABLET PO (05:20)
[2025-08-27] MEDS: norepinephrine 4 MG/250 ML BAG 7.5 MG IV (05:21)
--- NOTE | 2025-08-27 05:26 | P.ANES_ITS ---
Anesthesia Procedures Procedure/Date: 08/27/25 Central Venous Insert: Central Venous Line: Right internal jugular vein Time Out Performed: Yes Consent: requested by attending/covering physician, from patient, risks and benefits reviewed and patient agrees to proceed Central Line: New Anesthesia monitors: pulse oximetry, EKG, BP cuff and oxygen Vein cannulated: right internal jugular Ultrasound used: to identify patency to vessel and to visualize needle entry to vein Post procedure: Obtain Chest X-Ray Additional Comments: - Visualize needle entry into the right internal jugular vein -Drawback of nonpulsatile dark red blood - Guidewire was threaded over needle, co nfirmed guidewire placement into right internal jugular vein
[2025-08-27 06:31] LABS: Hematocrit 23.0 % (36-47); Hemoglobin 7.10 g/dL (11.27-16.99); Mean Corpuscular HGB Conc 30.9 g/dL (30-55); Mean Corpuscular Hemoglobin 30.7 pg (27-33); Mean Corpuscular Volume 99.6 fl (85-98); Nucleated Red Blood Cells % 0.3 %; Platelet Count 152 10^3/cmm (157-399); Red Blood Count 2.31 10^6/uL (3.85-5.65); White Blood Count 10.40 10^3/uL (3.29-11.43)
[2025-08-27 06:46] LABS: Lactic Sepsis W/Reflex 4.6 mmol/L (0.5-2.2); Procalcitonin 3.69 ng/mL (0-0.5)
[2025-08-27 06:59] LABS: Alanine Aminotransferase 300 U/L (0-33); Albumin Level 3.7 g/dL (3.5-5.2); Alkaline Phosphatase 40 U/L (35-105); Anion Gap 23.4 (5-19); Aspartate Amino Transferase 309 U/L (0-32); Blood Urea Nitrogen 46 mg/dL (8-23); Calcium 6.8 mg/dL (8.5-10.5); Carbon Dioxide 21 mmol/L (22-29); Chloride 102 mmol/L (98-107); Globulin 1.3 g/dL (1.3-4.6); Glucose 121 mg/dL (65-115); Osmolality Calculated 307 mOsm/kg (285-295); Potassium 4.4 mmol/L (3.5-5.1); Sodium 142 mmol/L (136-145); Total Protein 5.0 g/dL (6.6-8.7)
--- NOTE | 2025-08-27 07:00 | PC.NURSE ---
dialysis nurse here started at 0700 access to shunt area noted small infiltrate per dialysis nurse, access area , once started treatment noted pt blood pressure procedeed to drop drastic started levophed gtt and increase rapidly as pressures was critical low and went into afib rvr, is bipap dependant at this time as unable to bring off due to fluid overload and short of breath monitor closely ,
[2025-08-27 07:10] LABS: NT Pro B Type Natriuretic Pept > 70000 pg/mL (0-450)
[2025-08-27 07:28] LABS: Reflex Lactate Order REFLEX LACTIC ORDERD
--- NOTE | 2025-08-27 08:05 | PC.NURSE ---
unable to tolerate dialysis has had levophed gtt as high as 20 mcg, and albumin given also heart rate slowed after off treatment and remain on bipap constant , nephro aware not able to tolerate weaning levophed down after stopped
[2025-08-27] MEDS: ondansetron 2 mg/ML SDV 2 mL 4 MG IVP (09:45)
[2025-08-27] MEDS: pantoprazole 40 mg SDV IVP (10:38)
--- NOTE | 2025-08-27 11:04 | PC.NURSE ---
Transfer: Received call form Amanda at the [facility]. Patient is accepted by Dr Real. Assigned to room 6121. Amanda requests that we send all images through [employer]. Report#: [id number]
--- NOTE | 2025-08-27 11:35 | PM.TDS ---
Transfer Summary Providers Date of Admission: 08/25/25 09:20 Date of Discharge/Transfer: 08/27/25 Attending Provider at Admission: Darrian Lau MD Attending Provider at Transfer: Darrian Lau MD Primary Care Provider: NICCI Nobles Transfer Plans: Anticipated date of transfer: 08/27/25. Receiving Facility: [place], [place].. Receiving Provider: Dr. Real, subway train operator. Additional transfer facility information: Currently admitted to the ICU, for further evaluation by nephrology. . Diagnoses at Discharge Discharge Diagnosis 1. Acute respiratory failure with hypoxia: 2. Pulmonary edema: 3. Hyperkalemia: 4. Pneumonia: 5. Congestive heart failure: 6. Chronic kidney disease (CKD): 7. History of kidney transplant: 8. HTN (hypertension): Reason for Visit Reason for Visit SOB High BP wheezing Brief History: Patient was admitted with complaint of difficulty breathing. IV Lasix, antibiotics (for suspected PNA), and oxygen supplementation were started. Other symptoms were treated empirically. Nephrology was consulted, who recommended starting patient on dialysis to help get some fluid out.. Hospital Course Hospital Course All other concomitant symptoms were treated empirically. Dialysis was attempted last night, but she tolerated this very poorly. After due consideration, the lost charge card clerk recommended transfer the patient to higher level of care, where she will be seen by specialists with more expertise, and for further consideration for CCRT. She is therefore transferred to the to [facility] this morning under care of Dr. Baker. See my discharge orders and discharge instructions for more details. Physical Exam Narrative: General: Very frail looking elderly lady. Awake and alert. Cooperative. Chest/Resp: Currently on BiPAP, 100% oxygen, with mild distress at rest.. CVS: Rhythm: Mildly tachycardic, heart rate in the 100s. GI: Non-distended; No obvious organomegaly. Extremities: No obvious pitting pedal edema. Skin: No obvious new rashes or new skin lesions. Urinary Catheter Management: [place]: Cath Placed During This Visit: yes Reason for Continuing Indwelling Catheter: Accurate Measurement of Urinary Output in Critically Ill Patients Urinary Catheter Date of Insertion: 08/26/25 Urinary Catheter Time of Insertion: 12:25 TS Data Studies Completed and Pending Pending at discharge Category Date Time Status BMP [Basic Metabolic Panel] Q6H Lab 08/27/25 13:00 Ordered BMP [Basic Metabolic Panel] Q6H Lab 08/27/25 19:00 Ordered BMP [Basic Metabolic Panel] Q6H Lab 08/28/25 01:00 Ordered Blood Culture Stat Lab 08/25/25 08:54 Received Blood Culture Stat Lab 08/26/25 13:31 Received Complete Blood Count w/Auto AM LABS Lab 08/27/25 07:35 Ordered Complete Blood Count w/Auto AM LABS Lab 08/28/25 07:35 Ordered Comprehensive Metabolic Panel AM LABS Lab 08/27/25 07:35 Ordered Comprehensive Metabolic Panel AM LABS Lab 08/28/25 07:35 Ordered Lactic Acid level (Lactate) Stat Lab 08/27/25 08:28 Ordered Magnesium AM LABS Lab 08/27/25 07:35 Ordered Magnesium AM LABS Lab 08/28/25 07:35 Ordered Vancomycin Random AM LABS Lab 08/28/25 04:00 Ordered Vancomycin Random AM LABS Lab 08/29/25 04:00 Ordered CV. echo limited [id number] Routine Ultrasound 08/27/25 03:49 Ordered Completed Studies During Hospitalization Category Date Time Status XR chest 1V portable [id number] Stat Exams 08/25/25 07:05 Completed XR chest 1V portable [id number] Stat Exams 08/27/25 03:29 Completed XR chest 1V portable [id number] Stat Exams 08/27/25 04:31 Completed US renal BI* [id number] Routine Ultrasound 08/26/25 10:44 Completed Laboratory Last Values WBC 10.40 10^3/uL (3.29-11.43) 08/27/25 05:58 RBC 2.31 10^6/uL (3.85-5.65) L 08/27/25 05:58 Hgb 7.10 g/dL (11.27-16.99) L 08/27/25 05:58 Hct 23.0 % (36-47) L 08/27/25 05:58 MCV 99.6 fl (85-98) H 08/27/25 05:58 MCH 30.7 pg (27-33) 08/27/25 05:58 MCHC 30.9 g/dL (30-55) 08/27/25 05:58 RDW 13.6 % (12.1-15.1) 08/27/25 05:58 Plt Count 152 10^3/cmm (157-399) L D 08/27/25 05:58 MPV 9.9 fL (7.4-10.4) 08/27/25 05:58 Neut % (Auto) 90.7 % 08/27/25 05:58 Lymph % (Auto) 1.9 % 08/27/25 05:58 [place] % (Auto) 6.0 % 08/27/25 05:58 Eos % (Auto) 0.0 % 08/27/25 05:58 Baso % (Auto) 0.1 % 08/27/25 05:58 Neut # (Auto) 9.44 10^3/uL (1.8-7.7) H 08/27/25 05:58 Lymph # (Auto) 0.2 10^3/uL (0.8-4.8) L 08/27/25 05:58 [place] # (Auto) 0.6 10^3/uL (0.2-0.9) 08/27/25 05:58 Eos # (Auto) 0.0 10^3/uL (0.0-0.8) 08/27/25 05:58 Baso # (Auto) 0.0 10^3/uL (0.0-0.1) 08/27/25 05:58 Nucleated RBC % (auto) 0.3 % 08/27/25 05:58 Nucleated RBCs # 0.0 /100WBC 08/27/25 05:58 Specimen Type Arterial 08/27/25 03:52 Sample Site Brachial, left 08/27/25 03:52 ABG pH 7.27 (7.35-7.45) L 08/27/25 03:52 ABG pCO2 39.5 mmHg (35-45) 08/27/25 03:52 ABG pO2 71.1 mmHg (80.0-100.0) L 08/27/25 03:52 ABG PO2/FiO2 Ratio 118 08/27/25 03:52 ABG HCO3 18.2 mmol/L (22-26) L 08/27/25 03:52 ABG O2 Saturation 92.3 08/27/25 03:52 ABG Base Excess -8.1 mmol/L (-2.0-2.0) L 08/27/25 03:52 Mehul Test N/a 08/27/25 03:52 A-a O2 Gradient 39.6 mmHg (5-10) H 08/27/25 03:52 Hematocrit 33.9 % (37-47) L 08/27/25 03:52 Hgb O2 Saturation 91.5 % (95-100) L 08/27/25 03:52 Carboxyhemoglobin 0.9 %THgb (0.4-20.1) 08/27/25 03:52 Methemoglobin 0.0 % (0.4-1.5) L 08/27/25 03:52 Total Hemoglobin 11.1 g/dL (12-16) L 08/27/25 03:52 Sodium 144.0 mmol/L (131-143) H 08/27/25 03:52 Potassium 4.8 mmol/L (3.5-5.0) 08/27/25 03:52 Glucose 121.0 mg/dL (70-115) H 08/27/25 03:52 Ionized Calcium 0.9 mmol/L (1.1-1.4) L 08/27/25 03:52 O2 Delivery Device Bipap 08/27/25 03:52 O2 Liters/Min 6.0 % 08/25/25 08:15 FiO2 60.0 % 08/27/25 03:52 Enroller ID Carlos 08/27/25 03:52 Sodium 142 mmol/L (136-145) 08/27/25 05:58 Potassium 4.4 mmol/L (3.5-5.1) 08/27/25 05:58 Chloride 102 mmol/L (98-107) 08/27/25 05:58 Carbon Dioxide 21 mmol/L (22-29) L 08/27/25 05:58 Anion Gap 23.4 (5-19) H 08/27/25 05:58 BUN 46 mg/dL (8-23) H 08/27/25 05:58 Creatinine 3.4 mg/dL (0.5-0.9) H 08/27/25 05:58 GFR Calculation Not Reportable 08/27/25 05:58 Glucose 121 mg/dL (65-115) H 08/27/25 05:58 Estimat Average Glucose 103 08/25/25 10:37 Hemoglobin A1c 5.2 % (4.0-6.0) 08/25/25 10:37 Calculated Osmolality 307 mOsm/kg (285-295) H 08/27/25 05:58 Lactic Acid 4.6 mmol/L (0.5-2.2) H* 08/27/25 05:58 Calcium 6.8 mg/dL (8.5-10.5) L 08/27/25 05:58 Phosphorus 4.0 mg/dL (2.5-4.5) 08/25/25 10:37 Magnesium 2.1 mg/dL (1.7-2.3) 08/26/25 07:45 Total Bilirubin 1.0 mg/dL (0.15-1.2) 08/27/25 05:58 AST 309 U/L (0-32) H 08/27/25 05:58 ALT 300 U/L (0-33) H 08/27/25 05:58 Alkaline Phosphatase 40 U/L (35-105) 08/27/25 05:58 C-Reactive Protein 11.0 mg/L (0.0-4.9) H 08/27/25 05:58 NT-Pro-B Natriuret Pep > 82675 pg/mL (0-450) H 08/27/25 05:58 Total Protein 5.0 g/dL (6.6-8.7) L 08/27/25 05:58 Albumin 3.7 g/dL (3.5-5.2) 08/27/25 05:58 Globulin 1.3 g/dL (1.3-4.6) 08/27/25 05:58 25-OH Vitamin D Total 31 ng/mL (30-100) 08/25/25 10:37 Procalcitonin 3.69 ng/mL (0-0.5) H 08/27/25 05:58 Urine Color Yellow (Yellow) 08/26/25 12:35 Urine Appearance Clear (CLEAR) 08/26/25 12:35 Urine pH 5.0 (5-7) 08/26/25 12:35 Ur Specific [place] 1.012 (1.005-1.030) 08/26/25 12:35 Urine Protein 1+ (Negative) A 08/26/25 12:35 Urine Glucose (UA) Negative (Normal) 08/26/25 12:35 Urine Ketones Negative (Negative) 08/26/25 12:35 Urine Blood Non-haemolysed trace (Negative) 08/26/25 12:35 Urine Nitrate Negative (Negative) 08/26/25 12:35 Urine Bilirubin Negative (Negative) 08/26/25 12:35 Urine Urobilinogen 0.2 mg/dL (Negative) 08/26/25 12:35 Ur Leukocyte Esterase Negative (Negative) 08/26/25 12:35 Urine RBC 0-2 /hpf (0-2) 08/26/25 12:35 Urine WBC 0-5 /hpf (0-5) 08/26/25 12:35 Ur Eosinophil Smear 0 (0-0) 08/26/25 12:35 Ur Squamous Epith Cells 0-5 /hpf (0-5) 08/26/25 12:35 Amorphous Sediment Not Reportable 08/26/25 12:35 Urine Bacteria None seen /hpf (NONE) 08/26/25 12:35 Hyaline Casts 22.73 /lpf 08/26/25 12:35 Urine Eosinophils No eosinophils seen 08/26/25 12:35 Ur Random Microalbumin 14 ug/dL (0-20) 08/26/25 12:35 Ur Random Sodium 50 mmol/L 08/26/25 12:35 Ur Random Potassium 55 mmol/L 08/26/25 12:35 Ur Random Chloride 50 mmol/L 08/26/25 12:35 Urine Creatinine 94 mg/dL (28-217) 08/26/25 12:35 Urine Creatinine 95 mg/dL (28-217) 08/26/25 12:35 Urine Creatinine Cancelled 08/26/25 12:35 Microalb/Creat Ratio 149 mg/dL (0-20) H 08/26/25 12:35 Random Vancomycin 10.8 ug/mL (20.0-40.0) L 08/27/25 05:58 Adenovirus (PCR) Not detected (NOT DETECT) 08/25/25 14:35 C. pneumoniae DNA (PCR) Not detected (NOT DETECT) 08/25/25 14:35 Coronavirus 229E (PCR) Not detected (NOT DETECT) 08/25/25 14:35 Hep Bs Antigen Non-reactive (Nonreactive) 08/26/25 03:53 Hep Bs Antibody < 3.5 (11.5-1000) L 08/26/25 03:53 Human Metapneumovir PCR Not detected (NOT DETECT) 08/25/25 14:35 Influenza A (H1) PCR Not detected (NOT DETECT) 08/25/25 14:35 Influenza A (PCR) Negative (Negative) 08/25/25 07:16 Influ A (H1/09) PCR Not detected (NOT DETECT) 08/25/25 14:35 Influenza A (H3) PCR Not detected (NOT DETECT) 08/25/25 14:35 Influenza Type A (PCR) Not detected (NOT DETECT) 08/25/25 14:35 Influenza Type B (PCR) Not detected (NOT DETECT) 08/25/25 14:35 M. pneumoniae (PCR) Not detected (NOT DETECT) 08/25/25 14:35 Parainfluenza 1 (PCR) Not detected (NOT DETECT) 08/25/25 14:35 Parainfluenza 2 (PCR) Not detected (NOT DETECT) 08/25/25 14:35 Parainfluenza 3 (PCR) Not detected (NOT DETECT) 08/25/25 14:35 Parainfluenza 4 (PCR) Not detected (NOT DETECT) 08/25/25 14:35 RSV (PCR) Negative (Negative) 08/25/25 07:16 RSV Type A (PCR) Not detected (NOT DETECT) 08/25/25 14:35 RSV Type B (PCR) Not detected (NOT DETECT) 08/25/25 14:35 Entero/Rhino (PCR) Not detected (NOT DETECT) 08/25/25 14:35 SARS-CoV-2 (PCR) Not detected (NOT DETECT) 08/25/25 14:35 Radiology Impressions Renal Ultrasound 08/26/25 10:44 IMPRESSION: 1. Anechoic, multiseptated fluid collection between the transplant kidney and the bladder. Appearance favors a peritransplant fluid collection versus less likely a dilated ureter. Exam is limited without any cine sweep images through this region to confirm configuration. Recommend correlation with timing of transplant history and prior imaging posttransplant if available. 2. No hydronephrosis within the transplant kidney. Chest X-Ray 08/27/25 04:31 IMPRESSION: 1. Central line tip terminates in the cavoatrial junction. 2. Severe cardiomegaly with vascular congestion. 3. Airspace consolidation about both ciro and within lung apices may represent pulmonary edema pattern versus pneumonia. Recent Clincial Data Last Vital Signs Temp 98.1 F 08/27/25 04:00 Pulse 102 H 08/27/25 11:20 Resp 19 H 08/27/25 10:00 BP 130/77 08/27/25 10:00 Pulse Ox 100 08/27/25 11:20 O2 Del Method BiPAP 08/27/25 06:00 O2 Flow Rate 4 08/25/25 15:21 FiO2 80 08/27/25 11:20 Intake & Output/Weight 08/25/25 08/26/25 08/27/25 08/28/25 06:59 06:59 06:59 06:59 Intake Total 250 / 250 1251.000 / 1251.000 260.250 / 260.250 Output Total 50 / 50 811 / 811 Balance 200 / 200 440.000 / 440.000 260.250 / 260.250 Weight 42.1 kg 44.7 kg Vitals Last Vital Signs Temp 98.1 F 08/27/25 04:00 Pulse 102 H 08/27/25 11:20 Resp 19 H 08/27/25 10:00 BP 130/77 08/27/25 10:00 Pulse Ox 100 08/27/25 11:20 O2 Del Method BiPAP 08/27/25 06:00 O2 Flow Rate 4 08/25/25 15:21 FiO2 80 08/27/25 11:20 TS Medications Medications Acetaminophen (Acetaminophen 325 Mg Tablet) 650 mg PO Q6H PRN PRN Reason: Mild/Mod Pain Or Temp >/= 101 Albuterol Sulfate (Albuterol 2.5 Mg/3 Ml Neb) 2.5 mg INHALATION Q6H PRN PRN Reason: SHORTNESS OF BREATH Last Admin: 08/27/25 02:22 Dose: 2.5 mg Albuterol/Ipratropium (Ipratropium-Albuterol 3 Ml Neb) 3 ml INHALATION Q6H.RESP MARANDA Last Admin: 08/27/25 07:34 Dose: 3 ml Ascorbic Acid (Ascorbic Acid 500 Mg Tablet) 500 mg PO DAILY MARANDA Last Admin: 08/27/25 05:20 Dose: 500 mg Atorvastatin Calcium (Atorvastatin 20 Mg Tablet) 20 mg PO DAILY MARANDA Last Admin: 08/27/25 05:20 Dose: 20 mg Budesonide (Budesonide 0.5 Mg/2 Ml Neb) 0.25 mg INHALATION BID.RESPIRATORY MARANDA Last Admin: 08/27/25 07:34 Dose: 0.25 mg Calcitriol (Calcitriol 0.25 Mcg Capsule) 0.25 mcg PO MoWeFr MARANDA Last Admin: 08/26/25 08:53 Dose: 0.25 mcg Ferrous Gluconate (Ferrous Gluconate 324 Mg Tablet) 324 mg PO DAILY [facility] Last Admin: 08/27/25 05:20 Dose: 324 mg Albumin Human (Albumin) 25 g in 100 mls @ 60 mls/hr IV Q8H MARANDA Last Admin: 08/27/25 08:12 Dose: Not Given Piperacillin Sod/Tazobactam (Sod 3.375 gm/ Sodium Chloride) 50 mls @ 12.5 mls/hr IV Q12H MARANDA Last Admin: 08/27/25 07:04 Dose: Not Given Sodium Chloride (Sodium Chloride 0.9%) 1,000 mls @ 0 mls/hr IV .Q0M PRN PRN Reason: hypotension or symptomatic Albumin Human (Albumin) 12.5 gm in 50 mls @ 60 mls/hr IV PRN PRN PRN Reason: Hypotension and/or symptomatic Last Infusion: 08/27/25 08:33 Dose: Infused Sodium Chloride (Sodium Chloride 0.9%) 1,000 mls @ 0 mls/hr IV .Q0M PRN PRN Reason: hypotension or symptomatic Albumin Human (Albumin) 12.5 gm in 50 mls @ 60 mls/hr IV PRN PRN PRN Reason: Hypotension and/or symptomatic Furosemide 100 mg/ Sodium (Chloride) 50 mls @ 0 mls/hr IV .Q0M MARANDA; Protocol On Hold: 08/27/25 05:15 Last Titration: 08/27/25 05:03 Dose: 0 mg/hr, 0 mls/hr Norepinephrine Bitartrate (Levophed) 4 mg in 250 mls @ 0 mls/hr IV .Q0M MARANDA; Protocol Last Titration: 08/27/25 09:35 Dose: 0 mcg/min, 0 mls/hr Lactobacillus Acidophilus (Lactobacillus 1 Tablet) 1 tab PO DAILY [facility] Last Admin: 08/27/25 05:19 Dose: 1 tab Methylprednisolone Sodium Succinate (Methylprednisolone Sod Succ 40 Mg/Ml Inj) 40 mg IVP Q6H MARANDA Last Admin: 08/27/25 10:38 Dose: 40 mg Metoclopramide HCl (Metoclopramide 5 Mg/Ml Sdv 2 Ml) 5 mg IVP Q6H PRN PRN Reason: NAUSEA AND VOMITING Last Admin: 08/26/25 14:38 Dose: 5 mg Midodrine (Midodrine 5 Mg Tablet) 10 mg PO TID [facility] Last Admin: 08/27/25 05:19 Dose: 10 mg Morphine Sulfate (Morphine 4 Mg/Ml Sdv 1 Ml) 2 mg IVP Q4H PRN PRN Reason: SEVERE PAIN Multivitamins (L-Ndhhncp-Ncprkvd C Tablet) 1 each PO DAILY [facility] Last Admin: 08/27/25 05:20 Dose: 1 each Non-Formulary Medication (Cyclosporine Modified) 25 mg PO BID@1000,2200 [facility] Last Admin: 08/26/25 22:45 Dose: 25 mg Non-Formulary Medication (Peg 400-Propylene Glycol (Pf) [Systane (Pf)]) 1 drop OPHTHALMIC (EYE) QID PRN PRN Reason: Dry Eyes Non-Formulary Medication (Vit C,L-Rr-Dbgub-Lutein-Zeaxan [Preservision Areds-2]) 1 tab PO DAILY [facility] Ondansetron HCl (Ondansetron 2 Mg/Ml Sdv 2 Ml) 4 mg IVP Q8H PRN PRN Reason: vomiting, or N/V if npo Last Admin: 08/27/25 09:45 Dose: 4 mg Pantoprazole Sodium (Pantoprazole 40 Mg Sdv) 40 mg IVP Q24H [facility] Last Admin: 08/27/25 10:38 Dose: 40 mg Vancomycin HCl (Vancomycin 1,000 Mg Sdv (Pharmacy Mix)) 0 mg XX PRN PRN PRN Reason: Pharmacy to Dose Discontinued Medications Albuterol/Ipratropium (Ipratropium-Albuterol 3 Ml Neb) 3 ml INHALATION ONCE ONE Stop: 08/25/25 07:10 Last Admin: 08/25/25 07:20 Dose: 3 ml Alprazolam (Alprazolam 0.25 Mg Tablet) 0.125 mg PO ONCE ONE Stop: 08/25/25 20:16 Last Admin: 08/25/25 20:51 Dose: 0.125 mg Amlodipine Besylate (Amlodipine 5 Mg Tablet) 5 mg PO BEDTIME [facility] Calcium Gluconate (Calcium Gluconate 0.1 Gm/Ml 10% Sdv 10ml) 1 gm IVP ONCE ONE Stop: 08/26/25 10:14 Last Admin: 08/26/25 11:22 Dose: 1 gm Ceftriaxone Sodium (Ceftriaxone 1,000 Mg Sdv) 1,000 mg IVP ONCE ONE; Protocol Stop: 08/25/25 08:23 Last Admin: 08/25/25 09:22 Dose: 1,000 mg Ceftriaxone Sodium (Ceftriaxone 1,000 Mg Sdv) 1,000 mg IVP DAILY MARANDA; Protocol Last Admin: 08/26/25 08:53 Dose: 1,000 mg Furosemide (Furosemide 10 Mg/Ml Sdv 4ml) 40 mg IVP Q24H MARANDA Furosemide (Furosemide 10 Mg/Ml Sdv 4ml) 40 mg IVP Q24H MARANDA Last Admin: 08/25/25 14:03 Dose: 40 mg Furosemide (Furosemide 10 Mg/Ml Sdv 10ml) 80 mg IVP Q12H MARANDA Last Admin: 08/26/25 21:39 Dose: 80 mg Furosemide (Furosemide 10 Mg/Ml Sdv 10ml) 80 mg IVP ONCE ONE Stop: 08/27/25 03:31 Last Admin: 08/27/25 03:44 Dose: 80 mg Heparin Sodium (Porcine) (Heparin, Porcine 1,000 Unit/Ml Inj 10 Ml) 10,000 unit INTRACATH ONCE ONE Stop: 08/26/25 13:04 Last Admin: 08/26/25 14:37 Dose: Not Given Heparin Sodium (Porcine) (Heparin, Porcine 1,000 Unit/Ml Inj 10 Ml) 1,000 unit IV ONCE ONE Stop: 08/26/25 13:04 Last Admin: 08/26/25 17:00 Dose: Not Given Heparin Sodium (Porcine) (Heparin, Porcine 1,000 Unit/Ml Inj 10 Ml) 10,000 unit INTRACATH ONCE ONE Stop: 08/27/25 03:47 Last Admin: 08/27/25 07:04 Dose: Not Given Heparin Sodium (Porcine) (Heparin, Porcine 1,000 Unit/Ml Inj 10 Ml) 1,000 unit IV ONCE ONE Stop: 08/27/25 03:47 Last Admin: 08/27/25 07:04 Dose: Not Given Azithromycin 500 mg/ Sodium (Chloride) 250 mls @ 250 mls/hr IV ONCE ONE; Protocol Stop: 08/25/25 09:21 Last Infusion: 08/25/25 16:02 Dose: Infused Doxycycline Hyclate 100 mg/ (Sodium Chloride) 100 mls @ 100 mls/hr IV Q12H [facility]; Protocol Last Infusion: 08/27/25 07:05 Dose: Infused Vancomycin HCl 1,000 mg/ (Sodium Chloride) 250 mls @ 250 mls/hr IV ONCE ONE Stop: 08/26/25 11:29 Last Infusion: 08/26/25 15:19 Dose: Infused Norepinephrine Bitartrate (Levophed) Confirm Administered Dose 4 mg in 250 mls @ as directed .ROUTE .STK-MED ONE Stop: 08/27/25 05:06 Methylprednisolone Sodium Succinate (Methylprednisolone Sod Succ 125 Mg/2 Ml Inj) 125 mg IVP ONCE ONE Stop: 08/25/25 07:10 Last Admin: 08/25/25 07:22 Dose: 125 mg Metolazone (Metolazone 5 Mg Tablet) 5 mg PO ONCE ONE Stop: 08/27/25 03:51 Last Admin: 08/27/25 05:18 Dose: 5 mg Metoprolol Tartrate (Metoprolol Tartrate 50 Mg Tablet) 100 mg PO BID [facility] Last Admin: 08/26/25 17:16 Dose: 100 mg Morphine Sulfate (Morphine 4 Mg/Ml Sdv 1 Ml) 2 mg IVP ONCE ONE Stop: 08/25/25 20:15 Potassium Chloride (Potassium Chloride Er 20 Meq Tablet) 20 meq PO DAILY ONE Stop: 08/25/25 10:32 Last Admin: 08/25/25 15:06 Dose: Not Given Potassium Chloride (Potassium Chloride Er 20 Meq Tablet) 20 meq PO DAILY ONE Stop: 08/25/25 15:01 Last Admin: 08/25/25 14:59 Dose: 20 meq Prednisone (Prednisone 10 Mg Tablet) 10 mg PO EVERY OTHER DAY [facility] Sodium Bicarbonate (Sodium Bicarbonate 8.4% 1 Meq/Ml 50ml Syr) 50 meq IVP ONCE ONE Stop: 08/26/25 10:14 Last Admin: 08/26/25 11:16 Dose: 50 meq Allergies Iodinated Contrast Media Allergy (Mild, Verified 05/24/25 13:21) Unknown Home Medications atorvastatin 20 mg tablet 20 mg PO DAILY 08/26/22 [History Confirmed 08/25/25] cyclosporine modified 25 mg capsule 25 mg PO BID 08/26/22 [History Confirmed 08/25/25] metoprolol tartrate 100 mg tablet 100 mg PO BID 08/26/22 [History Confirmed 08/25/25] prednisone 10 mg tablet 10 mg PO EVERY OTHER DAY 08/26/22 [History Confirmed 08/25/25] vit C 250 mg-vit E 90 mg-zinc 40 mg-copper 1 cl-kuxdje-rhgtij capsule (PreserVision AREDS-2) 1 tab PO DAILY 08/26/22 [History Confirmed 08/25/25] albuterol sulfate 90 mcg/actuation aerosol inhaler 1 puff inhalation Q6H PRN Shortness Of Breath #6 grams 08/28/22 [Rx Confirmed 08/25/25] ascorbic acid (vitamin C) 500 mg capsule,extended release See Rx Instructions .Route .COMPLEX 09/30/23 [History Confirmed 08/25/25] calcitriol 0.25 mcg capsule See Rx Instructions .Route .COMPLEX 09/30/23 [History Confirmed 08/25/25] ferrous gluconate 324 mg (37.5 mg iron) tablet 324 mg PO DAILY 03/23/25 [History Confirmed 08/25/25] furosemide 20 mg tablet 20 mg PO DAILY 03/23/25 [History Confirmed 08/25/25] amlodipine 2.5 mg tablet 2.5 mg PO BEDTIME 08/25/25 [History Confirmed 08/25/25] calcium 500 mg (as carbonate)-vitamin D3 10 mcg (400 unit) tablet (Calcium 500 With D) 1 tab PO BID 08/25/25 [History Confirmed 08/25/25] lidocaine 4 % topical patch (Salonpas (lidocaine)) 1 patch topical DAILY PRN Pain 08/25/25 [History Confirmed 08/25/25] peg 400-propylene glycol 0.4 %-0.3 % eye drops (Systane (propylene glycol)) 1 drp ophthalmic (eye) DAILY PRN Dry Eyes 08/25/25 [History Confirmed 08/25/25] Discharge Plan Discharge Patient Disposition: Xfer Other Condition: Stable Prescriptions: No Action calcitriol 0.25 mcg capsule See Rx Instructions .ROUTE .COMPLEX Rx Instructions: Take 1 tablet by mouth on Friday, Friday, and Friday. ascorbic acid (vitamin C) 500 mg capsule, extended release See Rx Instructions .ROUTE .COMPLEX Rx Instructions: Take 500 mg by mouth on Friday, , and Friday. prednisone 10 mg tablet 10 mg PO EVERY OTHER DAY atorvastatin 20 mg tablet 20 mg PO DAILY metoprolol tartrate 100 mg tablet 100 mg PO BID cyclosporine modified 25 mg capsule 25 mg PO BID PreserVision AREDS-2 250-90-40-1 mg Capsule 1 tab PO DAILY albuterol sulfate 90 mcg/actuation HFA aerosol inhaler 1 puff INHALATION Q6H PRN (Reason: Shortness Of Breath) Qty: 6 0RF lidocaine [Salonpas (lidocaine)] 4 % Adhesive Patch,Medicated 1 patch TOPICAL DAILY PRN (Reason: Pain) amlodipine 2.5 mg tablet 2.5 mg PO BEDTIME Rx Instructions: Doctor put on HOLD Systane (propylene glycol) 0.4-0.3 % Drops 1 drp OPHTHALMIC (EYE) DAILY PRN (Reason: Dry Eyes) calcium carbonate-vitamin D3 [Calcium 500 With D] 500 mg-10 mcg (400 unit) Tablet 1 tab PO BID furosemide 20 mg tablet 20 mg PO DAILY ferrous gluconate 324 mg (37.5 mg iron) Tablet 324 mg PO DAILY [employer] OK for DC: Nephrology Discharge Order = DC NOW: Discharge Order (Routine); Ordered 08/27/25 Ordered By: Darrian Lau Patient Instructions: Opioid Safety, Patient Portal & Guido Instructions Activity Restrictions/Additional Instructions: Other activities, diet, etc., as to be determined by the receiving facility. Plan of Treatment: Patient will transfer to [place], [place], Under the care of Dr. Real, who accepted patient to be admitted to the ICU. Transfer Attestations Time Spent in Transfer Care: greater than 30 min Quality Metrics Clinical Quality Measures [ No reported AMI, CVA or VTE this stay] Coding Level of Care Code 51128 Diagnoses Acute respiratory failure with hypoxia J96.01 Pulmonary edema J81.1 Hyperkalemia E87.5 Pneumonia J18.9 Congestive heart failure I50.9 Chronic kidney disease (CKD) N18.9 History of kidney transplant Z94.0 HTN (hypertension) I10
--- NOTE | 2025-08-27 12:42 | PC.NURSE ---
belongings with son
== END 2025-08-27 12:15 | disposition short-term general hospital (02) | DRG 189 ==
LOC: ER 08:41 → ER IP 09:20 → CSU 13:16 → ICU 08-26 11:01
PROVIDERS: Clinical Nurse Specialist Acute Care; Family Medicine; Hospitalist; Registered Nurse; Student in an Organized Health Care Education/Training Program; Admitting Provider Family Medicine; Emergency Provider Emergency Medicine; PCP Nurse Practitioner Family; Visit Provider Family Medicine
DX: J96.21 Acute and chronic respiratory failure with hypoxia (principal); J18.9 Pneumonia, unspecified organism; I13.0 Hypertensive heart and chronic kidney disease with heart failure and stage 1 through stage 4 chronic kidney disease, or unspecified chronic kidney disease; N18.4 Chronic kidney disease, stage 4 (severe); E87.20 Acidosis, unspecified; N17.9 Acute kidney failure, unspecified; Z94.0 Kidney transplant status; E87.5 Hyperkalemia; I50.9 Heart failure, unspecified; I44.7 Left bundle-branch block, unspecified; Z77.22 Contact with and (suspected) exposure to environmental tobacco smoke (acute) (chronic); E89.0 Postprocedural hypothyroidism; J43.9 Emphysema, unspecified; R00.0 Tachycardia, unspecified; Z91.81 History of falling; Z79.2 Long term (current) use of antibiotics
CPT/HCPCS: 36415; 36600; 51702; 71045; 76770; 80048; 80051; 80053; 80202; 81001; 82044; 82306; 82330; 82436; 82570; 82803; 82805; 83036; 83605; 83735; 83880; 84100; 84133; 84145; 84300; 85025; 85999; 86140; 86706; 87040; 87340; 87486; 87581; 87633; 87637; 90935; 93005; 94640; 94660; 96365; 96375; 99285; 99291; J0456; J0612; J0696; J1938; J2405; J2470; J2543; J2765; J2919; J3373; J3490; J7050; J7613; J7626; J9999; P9046; P9047